=== PATIENT | female | born 1945 | race Caucasian/White ===

== ENCOUNTER 2017-08-18 09:08 | Emergency (ER) | payer MEDICARE, OTHER ==
[2017-08-18] MEDS ORDERED: Morphine 2 MG/ML Syringe IVPUSH ONE (09:42)
--- NOTE | 2017-08-18 10:30 | CR ---
Pelvis and right femur Medical history: Pain Comparison: None Findings: Greater and lesser pelvic rings are intact. There is an acute intertrochanteric fracture of the right hip without significant displacement. No distal metadiaphyseal abnormalities of the femur to the knee are identified. Impression: Right hip intertrochanteric fracture as described
--- NOTE | 2017-08-18 10:52 | CR ---
Pelvis and right hip History Pain after fall Comparison: Prior CT scan March 15, 2016 which was normal for bony anatomy around the pelvis Findings: There is an intertrochanteric fracture of the right femur. Impression: Acute intertrochanteric fracture of the right hip
--- NOTE | 2017-08-18 11:22 | EDM.PDOC ---
ED HPI GENERAL MEDICAL PROBLEM - General Chief Complaint: Lower Extremity Injury/Pain Stated Complaint: AMB Time Seen by Provider: 08/18/17 11:17 Source of Information: Reports: Patient - History of Present Illness INITIAL COMMENTS - FREE TEXT/NARRATIVE: HISTORY AND PHYSICAL: History of present illness: Chief complaint right hip pain Patient arrives via EMS as above She is on her way to [facility] to evaluate for left upper extremity injury , she slipped getting out of her pickup and developed right hip pain unable to ambulate No head injury or loss of consciousness no fever nausea vomiting diarrhea constipation chest pain shortness breath headache dizziness palpitation about a urine symptoms Review of systems: As per history of present illness and below otherwise all systems reviewed and negative. Past medical history: As per history of present illness and as reviewed below otherwise noncontributory. Surgical history: As per history of present illness and as reviewed below otherwise noncontributory. Social history: No reported history of drug or alcohol abuse. Family history: As per history of present illness and as reviewed below otherwise noncontributory. Physical exam: HEENT: Atraumatic, normocephalic, pupils reactive, negative for conjunctival pallor or scleral icterus, mucous membranes moist, throat clear, neck supple, nontender, trachea midline. Lungs: Clear to auscultation, breath sounds equal bilaterally, chest nontender. Heart: S1S2, regular, negative for clicks, rubs, or JVD. Abdomen: Soft, nondistended, nontender. Negative for masses or hepatosplenomegaly. Negative for costovertebral tenderness. Pelvis: Stable nontender. Genitourinary: Deferred. Rectal: Deferred. Extremities: Atraumatic, negative for cords or calf pain. Neurovascular unremarkable. Right hip shortened with external rotation entire limb neurovascularly intact Neuro: Awake, alert, oriented. Cranial nerves II through XII unremarkable. Cerebellum unremarkable. Motor and sensory unremarkable throughout. Exam nonfocal. Diagnostics: [CBC CMP INR UA Chest 1 view Pelvis 1 view Right hip Right femur as patient did not cooperate with the imaging ] Therapeutics: [Morphine 2 mg IV Normal saline 1 25 mL per hour ] Impression: [Intertrochanter fracture right hip Previous history at baseline] Definitive disposition and diagnosis as appropriate pending reevaluation and review of above. Right Hip Pain Score (Numeric/FACES): 8 - Related Data Allergies Allergy/AdvReac Type Severity Reaction Status Date / Time No Known Allergies Allergy Verified 03/15/16 04:16 Home Meds: Home Meds Calcium Carbonate [Calcium] 1,000 mg PO DAILY 08/18/17 [History] Celecoxib [CeleBREX] 200 mg PO DAILY 08/18/17 [History] Cholecalciferol (Vitamin D3) [Vitamin D] 5,000 unit PO DAILY 08/18/17 [History] Docusate Sodium [Stool Softener] 50 mg PO 08/18/17 [History] Sertraline [Zoloft] 50 mg PO DAILY 08/18/17 [History] Thiamine [Vitamin B-1] 50 mg PO DAILY 08/18/17 [History] Past Medical History HEENT History: Reports: Impaired Vision Cardiovascular History: Reports: None Respiratory History: Reports: None Gastrointestinal History: Reports: Bowel Obstruction Other Gastrointestinal History: 2014: required 2 ex laps. Peritonitis. Sepsis sydrome with shock. Prolonged ICU stay. Dr. Jin was the surgeon. 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 Diff or MRSA - Past Surgical History GI Surgical History: Reports: Appendectomy, Cholecystectomy, Colonoscopy, Other (See Below) Female Surgical History: Reports: Hysterectomy Social & Family History - Family History HEENT: Reports: None Cardiac: Reports: None Respiratory: Reports: None Endocrine/Metabolic: Reports: Diabetes, type II Oncologic: Reports: Breast, Liver, Lung - Tobacco Use Smoking Status *Q: Never Smoker Years of Tobacco use: 20 Packs/Tins Daily: 0.5 Second Hand Smoke Exposure: No - Caffeine Use Caffeine Use: Reports: None - Alcohol Use Days Per Week of Alcohol Use: 0 - Recreational Drug Use Recreational Drug Use: No Review of Systems - Review of Systems Review Of Systems: ROS reveals no pertinent complaints other than HPI. ED EXAM, GENERAL - Physical Exam Exam: See Below Course - Vital Signs Last Recorded V/S: Last Vital Signs Temp 99.3 F 08/18/17 10:51 Pulse 108 H 08/18/17 10:51 Resp 20 08/18/17 10:51 BP 129/65 08/18/17 10:51 Pulse Ox 93 L 08/18/17 10:51 - Orders/Labs/Meds Orders: Active Orders 24 hr Category Date Time Status EKG Documentation Completion [RC] STAT Care 08/18/17 11:17 Ordered Chest 1V Frontal [CR] Stat Exams 08/18/17 11:16 Ordered CBC WITH AUTO DIFF [HEME] Stat Lab 08/18/17 11:16 Ordered COMPREHENSIVE METABOLIC PN,CMP [CHEM] Stat Lab 08/18/17 11:16 Ordered UA W/MICROSCOPIC [URIN] Stat Lab 08/18/17 11:16 Uncollected Meds: Medications Discontinued Medications Generic Name Dose Route Start Last Admin Trade Name Freq PRN Reason Stop Dose Admin Morphine Sulfate 2 mg 08/18/17 09:42 08/18/17 10:44 Morphine IVPUSH 08/18/17 09:43 2 mg ONETIME ONE Administration Departure - Departure Time of Disposition: 11:21 Disposition: DC/Tfer to Other 70 Condition: Fair Clinical Impression: Intertrochanteric fracture, hip - Discharge Information Referrals: PCP,Unknown [Primary Care Provider] - Additional Instructions: The following information is given to patients seen in the emergency department who are being discharged to home. This information is to outline your options for follow-up care. We provide all patients seen in our emergency department with a follow-up referral. The need for follow-up, as well as the timing and circumstances, are variable depending upon the specifics of your emergency department visit. If you don't have a primary care physician on staff, we will provide you with a referral. We always advise you to contact your personal physician following an emergency department visit to inform them of the circumstance of the visit and for follow-up with them and/or the need for any referrals to a consulting specialist. The emergency department will also refer you to a specialist when appropriate. This referral assures that you have the opportunity for follow-up care with a specialist. All of these measure are taken in an effort to provide you with optimal care, which includes your follow-up. Under all circumstances we always encourage you to contact your private physician who remains a resource for coordinating your care. When calling for follow-up care, please make the office aware that this follow-up is from your recent emergency room visit. If for any reason you are refused follow-up, please contact the [facility] emergency department at and asked to speak to the emergency department charge nurse. - My Orders Last 24 Hours: My Active Orders 08/18/17 11:16 Chest 1V Frontal [CR] Stat CBC WITH AUTO DIFF [HEME] Stat COMPREHENSIVE METABOLIC PN,CMP [CHEM] Stat UA W/MICROSCOPIC [URIN] Stat 08/18/17 11:17 EKG Documentation Completion [RC] STAT - Assessment/Plan Last 24 Hours: My Active Orders 08/18/17 11:16 Chest 1V Frontal [CR] Stat CBC WITH AUTO DIFF [HEME] Stat COMPREHENSIVE METABOLIC PN,CMP [CHEM] Stat UA W/MICROSCOPIC [URIN] Stat 08/18/17 11:17 EKG Documentation Completion [RC] STAT
[2017-08-18] MEDS ORDERED: Sodium Chloride 0.9% 1,000 ML IV SCH (11:30)
[2017-08-18 12:07] LABS: CHLORIDE,CL 97 mmol/L (98-110); SODIUM,NA 138 mmol/L (136-146)
--- NOTE | 2017-08-18 12:22 | CR ---
Portable chest History: Chest pain Comparison: Prior chest x-ray January 13, 2012 Findings: Cardiomediastinum is unchanged. Vessels are within normal limits. There is an evolving righ t lower lung pneumonia. Impression: Evolving right lower lung pneumonia
[2017-08-18 12:49] VITALS: BP 122/68
== END 2017-08-18 12:55 | disposition other institution (70) ==
LOC: MW.ED 09:08
DX: S72.091A Other fracture of head and neck of right femur, initial encounter for closed fracture (principal); Z79.899 Other long term (current) drug therapy; W01.0XXA Fall on same level from slipping, tripping and stumbling without subsequent striking against object, initial encounter
CPT/HCPCS: 36415; 71045; 73501; 73552; 80053; 85025; 85610; 93005; 96361; 96374; 99285; J2270; J7040; 99284

== ENCOUNTER 2019-02-18 20:28 | Emergency (ER) | payer MEDICARE, OTHER ==
[2019-02-18] MEDS ORDERED: Sodium Chloride 0.9% 1,000 ML IV ONE (20:57)
--- NOTE | 2019-02-18 20:59 | EDM.PDOC ---
ED HPI GENERAL MEDICAL PROBLEM - General Chief Complaint: Trauma Stated Complaint: PT FELL Time Seen by Provider: 02/18/19 20:40 Source of Information: Reports: Patient, Family History Limitations: Reports: No Limitations - History of Present Illness INITIAL COMMENTS - FREE TEXT/NARRATIVE: HISTORY AND PHYSICAL: History of present illness: Patient is a 73-year-old female who presents to the emergency room today with complaints of syncope and confusion. She recently had a surgery done at [facility] in [place] to have pins removed from the left humerous (02/15/2019). She was given a prescription for oxycodone and has a home prescription for Ativan which she has been using both. Granddaughter states that she does live alone and has been possibly taking her medications incorrectly. Patient stated that earlier today she took a Ativan for and "ankle spasm". Today around 8 PM the granddaughter had gone over to the patient's house to check on her, and stated that she looked "off and seemed confused". The patient reportedly had a syncopal event/ fall and does not recall events prior. She states she remembers that she was getting out of bed and woke up on the floor. After the syncope/fall she denies any pain or concerns of any bodily harm. She states she was able to go and sit in her chair and that's when the granddaughter had came over. She does have extensive healing bruising throughout the left chest wall and left upper extremity, which was from her recent surgery. Patient denies any fever, chills, headache, change in vision, or neck pain/ stiffness. Denies any chest pain, back pain, shortness of breath. Denies any abdominal pain, nausea, vomiting, diarrhea, constipation or dysuria. Patient has been eating and drinking appropriately. Review of systems: As per history of present illness and below otherwise all systems reviewed and negative. Past medical history: As per history of present illness and as reviewed below otherwise noncontributory. Surgical history: As per history of present illness and as reviewed below otherwise noncontributory. Social history: See social history for further information Family history: As per history of present illness and as reviewed below otherwise noncontributory. Physical exam: General: Well-developed and well-nourished 73-year-old female. Alert and oriented. Nontoxic appearing and in no acute distress. HEENT: Nontender with palpation, normocephalic, pupils equal and reactive bilaterally, negative for conjunctival pallor or scleral icterus, mucous membranes moist, TMs normal bilaterally, throat clear, neck supple, nontender, trachea midline. No drooling or trismus noted. No meningeal signs. No hot potato voice noted. Lungs: Rhonchi noted to the upper lung alvares, breath sounds equal bilaterally, chest nontender. Loose productive cough noted. Heart: S1S2, regular rate and rhythm without overt murmur Abdomen: Soft, nondistended, nontender. Negative for masses or hepatosplenomegaly. Negative for costovertebral tenderness. Pelvis: Stable nontender. Genitourinary: Deferred. Rectal: Deferred. C-spine/Back: No pinpoint vertebral tenderness upon palpation. No crepitus, step -offs or obvious deformities. Patient is ambulatory into the emergency room without difficulty or deficit. Able to lift her toes up towards her nose and pushed down with equal force bilaterally. Denies any urinary or fecal incontinence. Denies any numbness, tingling or saddle paresthesia. Skin: Various sporadic bruising throughout body. Extensive bruising noted to the left upper extremity and left lateral torso, healing stages. Otherwise skin is intact, warm, dry. No lesions or rashes noted. Extremities: Wears a sling to the left upper extremity as she did recently have surgery, assessment is limited due to this. See skin for details. Otherwise moves all extremities per self without difficulty or deficits. No pain with palpation of the left elbow, forearm, wrist or hand. Mild tenderness with palpation of the left proximal humerus and shoulder although she states this is "normal" and is not a new pain related to today's visit. Strong distal pulses bilaterally. Neurovascular unremarkable. Neuro: Awake, alert, oriented. Cranial nerves II through XII unremarkable. Cerebellum unremarkable. Motor and sensory unremarkable throughout. Exam nonfocal. Notes: Vital signs remain stable. Patient currently has no complaints of pain. Negative head CT. Chest x-ray shows no active disease. Lab work is unremarkable. Discussed with patient's about admission versus discharge. Currently our facility is on diversion as we do not have any open beds available to admit at our facility. I did strongly advise that she be admitted for continued observation due to the syncopal event in recent surgery. This would require her to be transferred to the closest facility which is [facility]. Both patient and granddaughter at bedside are agreeable and would like her to be monitored overnight. Dr. Lester, ER physician at [facility], was consult did and he is agreeable to accepting this patient. Patient will go via ground EMS.i Diagnostics: CBC, CMP, INR, Troponin, EKG, CXR, Head CT Therapeutics: Normal Saline Impression: Syncope Recent shoulder surgery Plan: Transfer to [facility] via ground EMS Definitive disposition and diagnosis as appropriate pending reevaluation and review of above. - Related Data Allergies Allergy/AdvReac Type Severity Reaction Status Date / Time adhesive tape Allergy Swelling Verified 02/18/19 21:31 Home Meds: Home Meds Calcium Carbonate [Calcium] 1,000 mg PO DAILY 08/18/17 [History] Cholecalciferol (Vitamin D3) [Vitamin D] 5,000 unit PO DAILY 08/18/17 [History] Docusate Sodium [Stool Softener] 50 mg PO ASDIRECTED PRN 08/18/17 [History] Thiamine [Vitamin B-1] 50 mg PO DAILY 08/18/17 [History] Acetaminophen/oxyCODONE [Percocet 325-5 MG] 1 tab PO BID 02/18/19 [History] LORazepam 1 mg PO ASDIRECTED 02/18/19 [History] cephALEXin [Keflex] 500 mg PO QID 02/18/19 [History] Past Medical History HEENT History: Reports: Impaired Vision Cardiovascular History: Reports: None Respiratory History: Reports: None Gastrointestinal History: Reports: Bowel Obstruction Other Gastrointestinal History: 2013: required 2 ex laps. Peritonitis. Sepsis sydrome with shock. Prolonged ICU stay. Dr. Jin was the surgeon. 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 Diff or MRSA - Past Surgical History GI Surgical History: Reports: Appendectomy, Cholecystectomy, Colonoscopy, Other (See Below) Female Surgical History: Reports: Hysterectomy Social & Family History - Family History HEENT: Reports: None Cardiac: Reports: None Respiratory: Reports: None Endocrine/Metabolic: Reports: Diabetes, type II Oncologic: Reports: Breast, Liver, Lung - Caffeine Use Caffeine Use: Reports: None Review of Systems - Review of Systems Review Of Systems: ROS reveals no pertinent complaints other than HPI. ED EXAM, GENERAL - Physical Exam Exam: See Below (See dictation) Course - Vital Signs Last Recorded V/S: Last Vital Signs Temp 98.2 F 02/18/19 22:12 Pulse 73 02/18/19 22:12 Resp 18 02/18/19 22:12 BP 135/85 02/18/19 22:12 Pulse Ox 96 02/18/19 22:12 - Orders/Labs/Meds Orders: Active Orders 24 hr Category Date Time Status EKG Documentation Completion [RC] STAT Care 02/18/19 20:31 Active Sodium Chloride 0.9% [Normal Saline] 1,000 ml Med 02/18/19 20:57 Active IV STAT Medication Orders Sodium Chloride (Normal Saline) 1,000 mls @ 100 mls/hr IV STAT ONE Stop: 02/19/19 06:56 Last Admin: 02/18/19 21:18 Dose: 100 mls/hr Labs: Laboratory Tests 02/18/19 02/18/19 02/18/19 Range/Units 21:18 21:18 21:18 WBC 8.71 (4.0-11.0) K/uL RBC 3.74 L (4.30-5.90) M/uL Hgb 11.3 L (12.0-16.0) g/dL Hct 35.0 L (36.0-46.0) % MCV 93.6 (80.0-98.0) fL MCH 30.2 (27.0-32.0) pg MCHC 32.3 (31.0-37.0) g/dL RDW Std Deviation 48.5 (28.0-62.0) fl RDW Coeff of Danisha 14 (11.0-15.0) % Plt Count 281 (150-400) K/uL MPV 10.10 (7.40-12.00) fL Neut % (Auto) 77.4 (48.0-80.0) % Lymph % (Auto) 12.7 L (16.0-40.0) % [place] % (Auto) 9.1 (0.0-15.0) % Eos % (Auto) 0.6 (0.0-7.0) % Baso % (Auto) 0.2 (0.0-1.5) % Neut # (Auto) 6.7 H (1.4-5.7) K/uL Lymph # (Auto) 1.1 (0.6-2.4) K/uL [place] # (Auto) 0.8 (0.0-0.8) K/uL Eos # (Auto) 0.1 (0.0-0.7) K/uL Baso # (Auto) 0.0 (0.0-0.1) K/uL Nucleated RBC % 0.0 /100WBC Nucleated RBCs # 0 K/uL INR 1.04 Sodium 141 (136-145) mmol/L Potassium 3.5 (3.5-5.1) mmol/L Chloride 103 (98-107) mmol/L Carbon Dioxide 32.5 H (21.0-32.0) mmol/L BUN 25 H (7.0-18.0) mg/dL Creatinine 0.7 (0.6-1.0) mg/dL Est Cr Clr Drug Dosing 64.41 mL/min Estimated GFR (MDRD) > 60.0 ml/min Glucose 83 (74-106) mg/dL Calcium 9.2 (8.5-10.1) mg/dL Total Bilirubin 0.4 (0.2-1.0) mg/dL AST 27 (15-37) IU/L ALT 21 (14-63) IU/L Alkaline Phosphatase 76 (46-116) U/L Troponin I < 0.050 (0.000-0.056) ng/mL Total Protein 6.7 (6.4-8.2) g/dL Albumin 3.3 L (3.4-5.0) g/dL Globulin 3.4 (2.6-4.0) g/dL Albumin/Globulin Ratio 1.0 (0.9-1.6) Urine Color Urine Appearance Urine pH (5.0-8.0) Ur Specific Ranger (1.001-1.035) Urine Protein (NEGATIVE) mg/dL Urine Glucose (UA) (NEGATIVE) mg/dL Urine Ketones (NEGATIVE) mg/dL Urine Occult Blood (NEGATIVE) Urine Nitrite (NEGATIVE) Urine Bilirubin (NEGATIVE) Urine Urobilinogen (<2.0) EU/dL Ur Leukocyte Esterase (NEGATIVE) 02/18/19 Range/Units 22:06 WBC (4.0-11.0) K/uL RBC (4.30-5.90) M/uL Hgb (12.0-16.0) g/dL Hct (36.0-46.0) % MCV (80.0-98.0) fL MCH (27.0-32.0) pg MCHC (31.0-37.0) g/dL RDW Std Deviation (28.0-62.0) fl RDW Coeff of Danisha (11.0-15.0) % Plt Count (150-400) K/uL MPV (7.40-12.00) fL Neut % (Auto) (48.0-80.0) % Lymph % (Auto) (16.0-40.0) % [place] % (Auto) (0.0-15.0) % Eos % (Auto) (0.0-7.0) % Baso % (Auto) (0.0-1.5) % Neut # (Auto) (1.4-5.7) K/uL Lymph # (Auto) (0.6-2.4) K/uL [place] # (Auto) (0.0-0.8) K/uL Eos # (Auto) (0.0-0.7) K/uL Baso # (Auto) (0.0-0.1) K/uL Nucleated RBC % /100WBC Nucleated RBCs # K/uL INR Sodium (136-145) mmol/L Potassium (3.5-5.1) mmol/L Chloride (98-107) mmol/L Carbon Dioxide (21.0-32.0) mmol/L BUN (7.0-18.0) mg/dL Creatinine (0.6-1.0) mg/dL Est Cr Clr Drug Dosing mL/min Estimated GFR (MDRD) ml/min Glucose (74-106) mg/dL Calcium (8.5-10.1) mg/dL Total Bilirubin (0.2-1.0) mg/dL AST (15-37) IU/L ALT (14-63) IU/L Alkaline Phosphatase (46-116) U/L Troponin I (0.000-0.056) ng/mL Total Protein (6.4-8.2) g/dL Albumin (3.4-5.0) g/dL Globulin (2.6-4.0) g/dL Albumin/Globulin Ratio (0.9-1.6) Urine Color YELLOW Urine Appearance CLEAR Urine pH 6.0 (5.0-8.0) Ur Specific Ranger >= 1.030 (1.001-1.035) Urine Protein NEGATIVE (NEGATIVE) mg/dL Urine Glucose (UA) NEGATIVE (NEGATIVE) mg/dL Urine Ketones NEGATIVE (NEGATIVE) mg/dL Urine Occult Blood NEGATIVE (NEGATIVE) Urine Nitrite NEGATIVE (NEGATIVE) Urine Bilirubin NEGATIVE (NEGATIVE) Urine Urobilinogen 0.2 (<2.0) EU/dL Ur Leukocyte Esterase NEGATIVE (NEGATIVE) Meds: Medications Generic Name Dose Route Start Last Admin Trade Name Yvonq PRN Reason Stop Dose Admin Sodium Chloride 1,000 mls @ 100 mls/hr 02/18/19 20:57 02/18/19 21:18 Normal Saline IV 02/19/19 06:56 100 mls/hr STAT ONE Administration Departure - Departure Time of Disposition: 22:21 Disposition: DC/Tfer to [facility] 02 Clinical Impression: History of recent surgery Syncope Qualifiers: Syncope type: unspecified Qualified Code(s): R55 - Syncope and collapse - Discharge Information Referrals: PCP,None [Primary Care Provider] - Forms: ED Department Discharge - My Orders Last 24 Hours: My Active Orders 02/18/19 20:31 EKG Documentation Completion [RC] STAT 02/18/19 20:57 Sodium Chloride 0.9% [Normal Saline] 1,000 ml IV STAT - Assessment/Plan Last 24 Hours: My Active Orders 02/18/19 20:31 EKG Documentation Completion [RC] STAT 02/18/19 20:57 Sodium Chloride 0.9% [Normal Saline] 1,000 ml IV STAT
--- NOTE | 2019-02-18 21:07 | CT ---
INDICATION: Syncope with fall TECHNIQUE: CT head without contrast. COMPARISON: June 07, 2011 FINDINGS: CSF spaces: Within normal limits for age. Brain parenchyma: The vázquez-white differentiation is normal. No sign of mass, hemorrhage, or midline shift. Skull base and calvarium: The visualized paranasal sinuses and mastoid air cells demonstrate no acute or significant findings. The visualized orbits are grossly unremarkable. No skull fractures. IMPRESSION: Unremarkable noncontrast head CT. Please note that all CT scans at this facility use dose modulation, iterative reconstruction, and/or weight-based dosing when appropriate to reduce radiation dose to as low as reasonably achievable. Dictated by Mimi Katz MD @ Feb 18 2019 8:53PM Signed by Dr. Mimi Katz @ Feb 18 2019 9:04PM
--- NOTE | 2019-02-18 21:21 | CR ---
INDICATION: Pain and shortness of breath. COMPARISON: 02/04/2019 FINDINGS: PA and lateral views of the chest were obtained. The lungs remain clear. No focal or diffuse infiltrates are present. The heart remains normal in size. The mediastinum is normal in appearance. Again seen is minimal scoliosis of the thoracic spine convex towards the right. There has been revision of the ORIF of the fracture of the proximal left humeral shaft or in the interval. The previously-seen intramedullary yesica and proximal interlocking screw has been removed and a metallic side plate with multiple interlocking screws has been applied. The fracture fragments appear to be in near anatomic alignment on the images available. IMPRESSION: No active disease seen in the chest. Dictated by Gordy Stewart MD @ Feb 18 2019 9:18PM Signed by Dr. Gordy Stewart @ Feb 18 2019 9:20PM
[2019-02-18 21:58] LABS: BLOOD UREA NITROGEN,BUN 25 mg/dL (7.0-18.0); CARBON DIOXIDE,CO2 32.5 mmol/L (21.0-32.0); CHLORIDE,CL 103 mmol/L (98-107); GLUCOSE RANDOM 83 mg/dL (74-106); POTASSIUM,K 3.5 mmol/L (3.5-5.1); SODIUM,NA 141 mmol/L (136-145)
[2019-02-18] MEDS ORDERED: Nicotine 14 MG/24 Hr Patch TRDERM ONE (23:31)
[2019-02-19 11:50] VITALS: BP 150/77; PULSE 78
== END 2019-02-19 10:50 | disposition home or self-care (01) ==
LOC: MW.ED 20:28
DX: R55 Syncope and collapse (principal); F32.9 Major depressive disorder, single episode, unspecified; Z90.49 Acquired absence of other specified parts of digestive tract; Z90.710 Acquired absence of both cervix and uterus; Z86.2 Personal history of diseases of the blood and blood-forming organs and certain disorders involving the immune mechanism; Z79.899 Other long term (current) drug therapy; Z91.048 Other nonmedicinal substance allergy status
CPT/HCPCS: 36415; 70450; 71046; 80053; 81003; 84484; 85025; 85610; 93005; 96360; 96361; 99285; A9270; J7040; 99284

== ENCOUNTER 2019-06-15 13:39 | Inpatient (IN) | payer MEDICARE, OTHER ==
[2019-06-15] MEDS ORDERED: methylPREDNISolone Sodium Succinate 125 MG/2 ML SDV IVPUSH ONE (13:59)
[2019-06-15] MEDS ORDERED: Albuterol/Ipratropium 3.0-0.5 MG/3 ML Neb Soln NEB ONE (13:59)
[2019-06-15] MEDS ORDERED: Sodium Chloride 0.9% 10 ML Syringe FLUSH PRN (13:59)
[2019-06-15] MEDS ORDERED: Sodium Chloride 0.9% 2.5 ML Syringe FLUSH PRN (13:59)
--- NOTE | 2019-06-15 14:18 | EDM.PDOC ---
ED HPI GENERAL MEDICAL PROBLEM - General Chief Complaint: General Stated Complaint: WEAKNESS/FATIGUE Time Seen by Provider: 06/15/19 13:45 Source of Information: Reports: Patient, Family History Limitations: Reports: No Limitations - History of Present Illness INITIAL COMMENTS - FREE TEXT/NARRATIVE: HISTORY AND PHYSICAL: History of present illness: Patient is a 73-year-old female who presents to the ED today for concern of weakness over the past 2-3 weeks. Patient states that she just feels like she is having a harder time getting around the house. Patient states she did have a partial lung resection due to lung cancer approximately one month ago. Patient states that she does have a baseline cough but feels that this is unchanged. 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 Patient denies any abdominal pain. Patient denies any other symptoms or concerns. Patient states she does smoke about one cigarette a day. Patient denies fever, chills, chest pain, shortness of breath Denies headache, neck stiff ness, change in vision, syncope, or near syncope. Denies nausea, vomiting, abdominal pain, diarrhea, constipation, or dysuria. Has not noted any blood in urine or stool. Patient has been eating and drinking appropriately. Review of systems: As per history of present illness and below otherwise all systems reviewed and negative. Past medical history: As per history of present illness and as reviewed below otherwise noncontributory. Surgical history: As per history of present illness and as reviewed below otherwise noncontributory. Social history: See social history for further information Family history: As per history of present illness and as reviewed below otherwise noncontributory. Physical exam: General: Patient is alert, oriented, and in no acute distress. Patient laying comfortably on exam table. HEENT: Atraumatic, normocephalic, pupils equal and reactive bilaterally, negative for conjunctival pallor or scleral icterus, mucous membranes moist, TMs normal bilaterally, throat clear, neck supple, nontender, trachea midline. No drooling or trismus noted. No meningeal signs. No hot potato voice noted. Lungs: Course crackles to auscultation throughout all lung alvares, breath sounds equal bilaterally, chest nontender. Wet cough on exam. Heart: S1S2, regular rate and rhythm without overt murmur Abdomen: Soft, nondistended, nontender. Negative for masses or hepatosplenomegaly. Negative for costovertebral tenderness. Pelvis: Stable nontender. Genitourinary: Deferred. Rectal: Deferred. Skin: Intact, warm, dry. No lesions or rashes noted. Extremities: Atraumatic, negative for cords or calf pain. Neurovascular unremarkable. Neuro: Awake, alert, oriented. Cranial nerves II through XII unremarkable. Cerebellum unremarkable. Motor and sensory unremarkable throughout. Exam nonfocal. Notes: Dr. Baker was consulted on patient and will admit to Voices understanding and is agreeable to plan of care. Denies any further questions or concerns at this time. Diagnostics: CBC, CMP, UA, EKG, chest x-ray, troponin, PT/INR, BNP, Influenza Therapeutics: Solumedrol, Duoneb, Zosyn Impression: Pneumonia Plan: Admit to observation to Dr. Baker Definitive disposition and diagnosis as appropriate pending reevaluation and review of above. - Related Data Allergies Allergy/AdvReac Type Severity Reaction Status Date / Time adhesive tape Allergy Swelling Verified 06/15/19 13:51 Home Meds: Home Meds Calcium Carbonate [Calcium] 1,000 mg PO DAILY 08/18/17 [History] Cholecalciferol (Vitamin D3) [Vitamin D] 5,000 unit PO DAILY 08/18/17 [History] Sertraline HCl 50 mg PO DAILY 02/18/19 [History] Past Medical History HEENT History: Reports: Impaired Vision Other HEENT History: dentures top and bottom Cardiovascular History: Reports: None Respiratory History: Reports: None Gastrointestinal History: Reports: Bowel Obstruction Other Gastrointestinal History: 2013: required 2 ex laps. Peritonitis. Sepsis sydrome with shock. Prolonged ICU stay. Dr. Jin was the surgeon. 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 Diff or MRSA - Past Surgical History Respiratory Surgical History: Reports: Lung Biopsies, Lung Resection Other Respiratory Surgeries/Procedures: left lobectomy; mass removed from right ; hx of lung CA GI Surgical History: Reports: Appendectomy, Cholecystectomy, Colonoscopy, Other (See Below) Female Surgical History: Reports: Hysterectomy Social & Family History - Family History Family Medical History: Noncontributory HEENT: Reports: None Cardiac: Reports: None Respiratory: Reports: None Endocrine/Metabolic: Reports: Diabetes, type II Oncologic: Reports: Breast, Liver, Lung - Tobacco Use Smoking Status *Q: Current Every Day Smoker Years of Tobacco use: 55 Packs/Tins Daily: 0.5 - Caffeine Use Caffeine Use: Reports: None - Recreational Drug Use Recreational Drug Use: No ED ROS GENERAL - Review of Systems Review Of Systems: Comprehensive ROS is negative, except as noted in HPI. ED EXAM, GENERAL - Physical Exam Exam: See Below (see dictation) Course - Vital Signs Last Recorded V/S: Last Vital Signs Temp 97.8 F 06/15/19 16:35 Pulse 102 H 06/15/19 16:35 Resp 19 06/15/19 16:35 BP 127/68 06/15/19 16:35 Pulse Ox 92 L 06/15/19 16:38 - Orders/Labs/Meds Orders: Active Orders 24 hr Category Date Time Status Patient Status [ADT] Stat ADT 06/15/19 16:56 Active EKG Documentation Completion [RC] STAT Care 06/15/19 13:59 Active RT Aerosol Therapy [RC] ASDIRECTED Care 06/15/19 14:00 Active CULTURE BLOOD [BC] Stat Lab 06/15/19 16:04 Ordered CULTURE BLOOD [BC] Stat Lab 06/15/19 16:04 Ordered LACTATE WITH REFLEX [BG] Stat Lab 06/15/19 16:04 Ordered Piperacillin/Tazobactam [Piperacil-Tazobact] 4.5 gm Med 06/15/19 16:45 Active Sodium Chloride 0.9% [Normal Saline] 100 ml IV Q6H Sodium Chloride 0.9% [Normal Saline] 1,000 ml Med 06/15/19 15:45 Active IV STAT Sodium Chloride 0.9% [Saline Flush] Med 06/15/19 13:59 Active 10 ml FLUSH ASDIRECTED PRN Sodium Chloride 0.9% [Saline Flush] Med 06/15/19 13:59 Active 2.5 ml FLUSH ASDIRECTED PRN Blood Culture x2 Reflex Set [OM.PC] Stat Oth 06/15/19 16:04 Ordered Saline Lock Insert [OM.PC] Stat Oth 06/15/19 13:59 Ordered Medication Orders Sodium Chloride (Normal Saline) 1,000 mls @ 125 mls/hr IV STAT ELAINE Last Admin: 06/15/19 16:09 Dose: 125 mls/hr Piperacillin Sod/Tazobactam (Sod 4.5 gm/ Sodium Chloride) 100 mls @ 100 mls/hr IV Q6H ELAINE Sodium Chloride (Saline Flush) 10 ml FLUSH ASDIRECTED PRN PRN Reason: Keep Vein Open Last Admin: 06/15/19 14:14 Dose: 10 ml Sodium Chloride (Saline Flush) 2.5 ml FLUSH ASDIRECTED PRN PRN Reason: Keep Vein Open Last Admin: 06/15/19 14:14 Dose: 2.5 ml Labs: Laboratory Tests 06/15/19 06/15/19 06/15/19 Range/Units 15:30 15:30 15:30 WBC 17.94 H (4.0-11.0) K/uL RBC 4.20 L (4.30-5.90) M/uL Hgb 12.3 (12.0-16.0) g/dL Hct 36.2 (36.0-46.0) % MCV 86.2 (80.0-98.0) fL MCH 29.3 (27.0-32.0) pg MCHC 34.0 (31.0-37.0) g/dL RDW Std Deviation 49.5 (28.0-62.0) fl RDW Coeff of Danisha 16 H (11.0-15.0) % Plt Count 546 H (150-400) K/uL MPV 10.00 (7.40-12.00) fL Neut % (Auto) 80.6 H (48.0-80.0) % Lymph % (Auto) 12.7 L (16.0-40.0) % [place] % (Auto) 6.4 (0.0-15.0) % Eos % (Auto) 0.1 (0.0-7.0) % Baso % (Auto) 0.2 (0.0-1.5) % Neut # (Auto) 14.5 H (1.4-5.7) K/uL Lymph # (Auto) 2.3 (0.6-2.4) K/uL [place] # (Auto) 1.1 H (0.0-0.8) K/uL Eos # (Auto) 0.0 (0.0-0.7) K/uL Baso # (Auto) 0.0 (0.0-0.1) K/uL Nucleated RBC % 0.0 /100WBC Nucleated RBCs # 0 K/uL INR 1.46 Sodium 135 L (136-145) mmol/L Potassium 5.1 (3.5-5.1) mmol/L Chloride 97 L (98-107) mmol/L Carbon Dioxide 30.7 (21.0-32.0) mmol/L BUN 29 H (7.0-18.0) mg/dL Creatinine 0.9 (0.6-1.0) mg/dL Est Cr Clr Drug Dosing 41.46 mL/min Estimated GFR (MDRD) > 60.0 ml/min Glucose 102 (74-106) mg/dL Calcium 9.1 (8.5-10.1) mg/dL Total Bilirubin 0.7 (0.2-1.0) mg/dL AST 27 (15-37) IU/L ALT 21 (14-63) IU/L Alkaline Phosphatase 112 (46-116) U/L Troponin I < 0.050 (0.000-0.056) ng/mL B-Natriuretic Peptide (<100) PG/ML Total Protein 7.0 (6.4-8.2) g/dL Albumin 2.2 L (3.4-5.0) g/dL Globulin 4.8 H (2.6-4.0) g/dL Albumin/Globulin Ratio 0.5 L (0.9-1.6) Urine Color Urine Appearance Urine pH (5.0-8.0) Ur Specific [place] (1.001-1.035) Urine Protein (NEGATIVE) mg/dL Urine Glucose (UA) (NEGATIVE) mg/dL Urine Ketones (NEGATIVE) mg/dL Urine Occult Blood (NEGATIVE) Urine Nitrite (NEGATIVE) Urine Bilirubin (NEGATIVE) Urine Urobilinogen (<2.0) EU/dL Ur Leukocyte Esterase (NEGATIVE) 11/27/19 11/27/19 Range/Units 15:30 15:50 WBC (4.0-11.0) K/uL RBC (4.30-5.90) M/uL Hgb (12.0-16.0) g/dL Hct (36.0-46.0) % MCV (80.0-98.0) fL MCH (27.0-32.0) pg MCHC (31.0-37.0) g/dL RDW Std Deviation (28.0-62.0) fl RDW Coeff of Danisha (11.0-15.0) % Plt Count (150-400) K/uL MPV (7.40-12.00) fL Neut % (Auto) (48.0-80.0) % Lymph % (Auto) (16.0-40.0) % [place] % (Auto) (0.0-15.0) % Eos % (Auto) (0.0-7.0) % Baso % (Auto) (0.0-1.5) % Neut # (Auto) (1.4-5.7) K/uL Lymph # (Auto) (0.6-2.4) K/uL [place] # (Auto) (0.0-0.8) K/uL Eos # (Auto) (0.0-0.7) K/uL Baso # (Auto) (0.0-0.1) K/uL Nucleated RBC % /100WBC Nucleated RBCs # K/uL INR Sodium (136-145) mmol/L Potassium (3.5-5.1) mmol/L Chloride (98-107) mmol/L Carbon Dioxide (21.0-32.0) mmol/L BUN (7.0-18.0) mg/dL Creatinine (0.6-1.0) mg/dL Est Cr Clr Drug Dosing mL/min Estimated GFR (MDRD) ml/min Glucose (74-106) mg/dL Calcium (8.5-10.1) mg/dL Total Bilirubin (0.2-1.0) mg/dL AST (15-37) IU/L ALT (14-63) IU/L Alkaline Phosphatase (46-116) U/L Troponin I (0.000-0.056) ng/mL B-Natriuretic Peptide 198 H (<100) PG/ML Total Protein (6.4-8.2) g/dL Albumin (3.4-5.0) g/dL Globulin (2.6-4.0) g/dL Albumin/Globulin Ratio (0.9-1.6) Urine Color DARK YELLOW Urine Appearance CLEAR Urine pH 6.0 (5.0-8.0) Ur Specific [place] 1.015 (1.001-1.035) Urine Protein NEGATIVE (NEGATIVE) mg/dL Urine Glucose (UA) NEGATIVE (NEGATIVE) mg/dL Urine Ketones NEGATIVE (NEGATIVE) mg/dL Urine Occult Blood NEGATIVE (NEGATIVE) Urine Nitrite NEGATIVE (NEGATIVE) Urine Bilirubin NEGATIVE (NEGATIVE) Urine Urobilinogen 0.2 (<2.0) EU/dL Ur Leukocyte Esterase NEGATIVE (NEGATIVE) Meds: Medications Generic Name Dose Route Start Last Admin Trade Name Freq PRN Reason Stop Dose Admin Sodium Chloride 1,000 mls @ 125 mls/hr 06/15/19 15:45 06/15/19 16:09 Normal Saline IV 125 mls/hr STAT ELAINE Administration Piperacillin Sod/Tazobactam 100 mls @ 100 mls/hr 06/15/19 16:45 Sod 4.5 gm/ Sodium Chloride IV Q6H ELAINE Sodium Chloride 10 ml 06/15/19 13:59 06/15/19 14:14 Saline Flush FLUSH 10 ml ASDIRECTED PRN Administration Keep Vein Open Sodium Chloride 2.5 ml 06/15/19 13:59 06/15/19 14:14 Saline Flush FLUSH 2.5 ml ASDIRECTED PRN Administration Keep Vein Open Discontinued Medications Generic Name Dose Route Start Last Admin Trade Name Freq PRN Reason Stop Dose Admin Albuterol/Ipratropium 3 ml 06/15/19 13:59 06/15/19 14:14 Duoneb 3.0-0.5 Mg/3 Ml NEB 06/15/19 14:00 3 ml ONETIME ONE Administration Methylprednisolone Sodium Succinate 125 mg 06/15/19 13:59 06/15/19 14:14 Solu-Medrol IVPUSH 06/15/19 14:00 125 mg ONETIME ONE Administration Departure - Departure Time of Disposition: 16:52 Disposition: Admitted As Inpatient 66 Clinical Impression: Pneumonia Qualifiers: Pneumonia type: due to unspecified organism Laterality: bilateral Lung location : unspecified part of lung Qualified Code(s): J18.9 - Pneumonia, unspecified organism - Discharge Information Referrals: Chalino Servin MD [Primary Care Provider] - Forms: ED Department Discharge - My Orders Last 24 Hours: My Active Orders 06/15/19 13:59 EKG Documentation Completion [RC] STAT Sodium Chloride 0.9% [Saline Flush] 10 ml FLUSH ASDIRECTED PRN Sodium Chloride 0.9% [Saline Flush] 2.5 ml FLUSH ASDIRECTED PRN Saline Lock Insert [OM.PC] Stat 06/15/19 14:00 RT Aerosol Therapy [RC] ASDIRECTED 06/15/19 15:45 Sodium Chloride 0.9% [Normal Saline] 1,000 ml IV STAT 06/15/19 16:04 CULTURE BLOOD [BC] Stat CULTURE BLOOD [BC] Stat LACTATE WITH REFLEX [BG] Stat Blood Culture x2 Reflex Set [OM.PC] Stat - Assessment/Plan Last 24 Hours: My Active Orders 06/15/19 13:59 EKG Documentation Completion [RC] STAT Sodium Chloride 0.9% [Saline Flush] 10 ml FLUSH ASDIRECTED PRN Sodium Chloride 0.9% [Saline Flush] 2.5 ml FLUSH ASDIRECTED PRN Saline Lock Insert [OM.PC] Stat 06/15/19 14:00 RT Aerosol Therapy [RC] ASDIRECTED 06/15/19 15:45 Sodium Chloride 0.9% [Normal Saline] 1,000 ml IV STAT 06/15/19 16:04 CULTURE BLOOD [BC] Stat CULTURE BLOOD [BC] Stat LACTATE WITH REFLEX [BG] Stat Blood Culture x2 Reflex Set [OM.PC] Stat
[2019-06-15] MEDS ORDERED: Sodium Chloride 0.9% 1,000 ML IV SCH (15:45)
[2019-06-15 16:11] LABS: BLOOD UREA NITROGEN,BUN 29 mg/dL (7.0-18.0); CARBON DIOXIDE,CO2 30.7 mmol/L (21.0-32.0); CHLORIDE,CL 97 mmol/L (98-107); GLUCOSE RANDOM 102 mg/dL (74-106); POTASSIUM,K 5.1 mmol/L (3.5-5.1); SODIUM,NA 135 mmol/L (136-145)
--- NOTE | 2019-06-15 16:18 | CR ---
INDICATION: Cough, weakness TECHNIQUE: Chest 2 views. COMPARISON: Chest radiograph February 18, 2019, chest CT March 01, 2019 FINDINGS: Stable cardiomediastinal silhouette. Emphysema. Lungs are hyperinflated. New scattered patchy opacities throughout the lungs. No pneumothorax or significant effusion. Plate and screw hardware in the proximal left humerus. IMPRESSION: New bilateral patchy opacities concerning for pneumonia. Emphysema. Dictated by Mimi Katz MD @ Jun 15 2019 4:14PM Signed by Dr. Mimi Katz @ Jun 15 2019 4:17PM
[2019-06-15] MEDS ORDERED: Ondansetron 4 MG/2 ML SDV IVPUSH PRN (17:08)
[2019-06-15] MEDS ORDERED: Acetaminophen 325 MG Tab PO PRN (17:08)
--- NOTE | 2019-06-15 17:08 | PCM.HP.2 ---
H&P History of Present Illness - General Date of Service: 06/15/19 Admit Problem/Dx: Admission Diagnosis/Problem Admission Diagnosis/Problem Healthcare-associated pneumonia Source of Information: Patient History Limitations: Reports: No Limitations - History of Present Illness Initial Comments - Free Text/Narative: This 73 year old female with pmh of adenocarcinoma of the lung with recent L lobe lung resection and pulmonary tumor resection to R 6 weeks ago in [place] and depression presented to the ED today with her grand-daughter. She feels she has not been feeling well for the past 2 weeks, granddaughter reports seeing a significant decline in ability to ambulate without shortness of breath and congested cough. Grand-daughter reports she doesn't look like her normal self. Patient reports cough, with some productive sputum, yellow to green in color. Denies fevers or chills, no chest pain. Reports shortness of breath especially with ambulation and exertion. She denies abdominal pain and no urinary symptoms. She denies diarrhea or constipation and no black or bloody BMs. She reports essentially quitting smoking, but smokes 1 cigarette a day. No alcohol and no recreational drug use. In the ED significant leukocytosis noted 17,000. Platelets 550. BUN elevated with decreased CL 97. No elevated LFTs. BC obtained in the ED and UA negative. Noted to be hypoxic and placed on 4 L NC. CXR revealed bilateral infiltrates suspicious for pneumonia. She will be admitted for acute hypoxic respiratory failure and HCAP.. Grand daughter explains they recently visited with oncology, who recommended chemotherapy, though cancer was totally removed. Patient and family decided to hold off due to significant weight loss post-operatively and having no reserve currently to under go chemotherapy. She was started on Ensure with PCP, Dr Servin recently. She reports appetite is good and has been drinking ensures at home to help with meal replacement. PCP, Dr Servin. Dr Servin notified of patient admission. - Related Data Allergies/Adverse Reactions: Allergies Allergy/AdvReac Type Severity Reaction Status Date / Time adhesive tape Allergy Swelling Verified 06/15/19 17:44 Home Medications: Home Meds Calcium Carbonate [Calcium] 1,000 mg PO DAILY 08/18/17 [History] Cholecalciferol (Vitamin D3) [Vitamin D] 5,000 unit PO DAILY 08/18/17 [History] Sertraline HCl 50 mg PO DAILY 02/18/19 [History] Docusate Sodium [Colace] 100 mg PO DAILY 06/15/19 [History] Past Medical History HEENT History: Reports: Impaired Vision Other HEENT History: dentures top and bottom Cardiovascular History: Reports: None. Denies: CAD, Hypertension, [place] Respiratory History: Reports: COPD Gastrointestinal History: Reports: Bowel Obstruction Other Gastrointestinal History: 2014: required 2 ex laps. Peritonitis. Sepsis sydrome with shock. Prolonged ICU stay. Dr. Jin was the surgeon. Genitourinary History: Reports: None DESIGN SUPERVISOR History: Reports: Polycystic Ovaries Musculoskeletal History: Reports: Fracture, Other (See Below) Other Musculoskeletal History: fractured arm age 2 Neurological History: Reports: None Psychiatric History: Reports: Depression Endocrine/Metabolic History: Reports: None. Denies: Diabetes, Type II Hematologic History: Reports: Anemia, Blood Transfusion(s) Oncologic (Cancer) History: Reports: Lung, Other (See Below) Other Oncologic History: possible uterine or ovarian CA at age 21 - Infectious Disease History Infectious Disease History: Reports: MRSA Other Infectious Disease History: Client denies history of C. Diff or MRSA - Past Surgical History Respiratory Surgical History: Reports: Lung Biopsies, Lung Resection Other Respiratory Surgeries/Procedures: left lobectomy; mass removed from right ; hx of lung CA GI Surgical History: Reports: Appendectomy, Cholecystectomy, Colonoscopy, Other (See Below) Female Surgical History: Reports: Hysterectomy Social & Family History - Family History Family Medical History: Noncontributory HEENT: Reports: None Cardiac: Reports: None Respiratory: Reports: None Endocrine/Metabolic: Reports: Diabetes, type II Oncologic: Reports: Breast, Liver, Lung - Tobacco Use Smoking Status *Q: Current Every Day Smoker Years of Tobacco use: 55 Packs/Tins Daily: 0.5 - Caffeine Use Caffeine Use: Reports: None - Alcohol Use Alcohol Use History: No - Recreational Drug Use Recreational Drug Use: No - Living Situation & Occupation Living situation: Reports: , Other (grand-daughter helps with cares.) Occupation: Retired H&P Review of Systems - Review of Systems: Review Of Systems: See Below General: Reports: Malaise, Weakness, Fatigue, Weight Loss. Denies: Fever, Chills HEENT: Reports: No Symptoms. Denies: Headaches, Sore Throat, Vertigo, Visual Changes Pulmonary: Reports: Shortness of Breath, Cough, Sputum. Denies: Hemoptysis Cardiovascular: Reports: Dyspnea on Exertion. Denies: Chest Pain, Syncope Gastrointestinal: Reports: No Symptoms. Denies: Abdominal Pain, Black Stool, Bloody Stool, Constipation, Diarrhea, Nausea Genitourinary: Reports: No Symptoms. Denies: Dysuria, Frequency, Burning Musculoskeletal: Reports: No Symptoms Skin: Reports: No Symptoms Neurological: Reports: No Symptoms Hematologic/Lymphatic: Reports: No Symptoms Immunologic: Reports: No Symptoms Exam - Exam Exam: See Below - Vital Signs Vital Signs: Last Vital Signs Temp 97.8 F 06/15/19 16:35 Pulse 102 H 06/15/19 16:35 Resp 19 06/15/19 16:35 BP 127/68 06/15/19 16:35 Pulse Ox 92 L 06/15/19 16:38 Weight: 47.174 kg - Exam General: Alert, Oriented Neck: Supple. No: JVD Lungs: Decreased Breath Sounds, Crackles (bibasilar). No: Normal Respiratory Effort (dyspnea with speech) Cardiovascular: Regular Rate, Regular Rhythm, Tachycardia (intermittently) Extremities: Normal Inspection, Normal Range of Motion, Non-Tender, No Pedal Edema Skin: Warm, Dry Neuro Extensive - Mental Status: Alert, Oriented x3 Neuro Extensive - Motor, Sensory, Reflexes: CN II-XII Intact Psychiatric: Alert, Normal Affect, Normal Mood - Patient Data Lab Results Last 24 hrs: Laboratory Results - last 24 hr 06/15/19 06/15/19 06/15/19 Range/Units 15:30 15:30 15:30 WBC 17.94 H (4.0-11.0) K/uL RBC 4.20 L (4.30-5.90) M/uL Hgb 12.3 (12.0-16.0) g/dL Hct 36.2 (36.0-46.0) % MCV 86.2 (80.0-98.0) fL MCH 29.3 (27.0-32.0) pg MCHC 34.0 (31.0-37.0) g/dL RDW Std Deviation 49.5 (28.0-62.0) fl RDW Coeff of Danisha 16 H (11.0-15.0) % Plt Count 546 H (150-400) K/uL MPV 10.00 (7.40-12.00) fL Neut % (Auto) 80.6 H (48.0-80.0) % Lymph % (Auto) 12.7 L (16.0-40.0) % [place] % (Auto) 6.4 (0.0-15.0) % Eos % (Auto) 0.1 (0.0-7.0) % Baso % (Auto) 0.2 (0.0-1.5) % Neut # (Auto) 14.5 H (1.4-5.7) K/uL Lymph # (Auto) 2.3 (0.6-2.4) K/uL [place] # (Auto) 1.1 H (0.0-0.8) K/uL Eos # (Auto) 0.0 (0.0-0.7) K/uL Baso # (Auto) 0.0 (0.0-0.1) K/uL Nucleated RBC % 0.0 /100WBC Nucleated RBCs # 0 K/uL INR 1.46 Sodium 135 L (136-145) mmol/L Potassium 5.1 (3.5-5.1) mmol/L Chloride 97 L (98-107) mmol/L Carbon Dioxide 30.7 (21.0-32.0) mmol/L BUN 29 H (7.0-18.0) mg/dL Creatinine 0.9 (0.6-1.0) mg/dL Est Cr Clr Drug Dosing 41.46 mL/min Estimated GFR (MDRD) > 60.0 ml/min Glucose 102 (74-106) mg/dL Calcium 9.1 (8.5-10.1) mg/dL Total Bilirubin 0.7 (0.2-1.0) mg/dL AST 27 (15-37) IU/L ALT 21 (14-63) IU/L Alkaline Phosphatase 112 (46-116) U/L Troponin I < 0.050 (0.000-0.056) ng/mL B-Natriuretic Peptide (<100) PG/ML Total Protein 7.0 (6.4-8.2) g/dL Albumin 2.2 L (3.4-5.0) g/dL Globulin 4.8 H (2.6-4.0) g/dL Albumin/Globulin Ratio 0.5 L (0.9-1.6) Urine Color Urine Appearance Urine pH (5.0-8.0) Ur Specific [place] (1.001-1.035) Urine Protein (NEGATIVE) mg/dL Urine Glucose (UA) (NEGATIVE) mg/dL Urine Ketones (NEGATIVE) mg/dL Urine Occult Blood (NEGATIVE) Urine Nitrite (NEGATIVE) Urine Bilirubin (NEGATIVE) Urine Urobilinogen (<2.0) EU/dL Ur Leukocyte Esterase (NEGATIVE) 06/15/19 06/15/19 Range/Units 15:30 15:50 WBC (4.0-11.0) K/uL RBC (4.30-5.90) M/uL Hgb (12.0-16.0) g/dL Hct (36.0-46.0) % MCV (80.0-98.0) fL MCH (27.0-32.0) pg MCHC (31.0-37.0) g/dL RDW Std Deviation (28.0-62.0) fl RDW Coeff of Danisha (11.0-15.0) % Plt Count (150-400) K/uL MPV (7.40-12.00) fL Neut % (Auto) (48.0-80.0) % Lymph % (Auto) (16.0-40.0) % [place] % (Auto) (0.0-15.0) % Eos % (Auto) (0.0-7.0) % Baso % (Auto) (0.0-1.5) % Neut # (Auto) (1.4-5.7) K/uL Lymph # (Auto) (0.6-2.4) K/uL [place] # (Auto) (0.0-0.8) K/uL Eos # (Auto) (0.0-0.7) K/uL Baso # (Auto) (0.0-0.1) K/uL Nucleated RBC % /100WBC Nucleated RBCs # K/uL INR Sodium (136-145) mmol/L Potassium (3.5-5.1) mmol/L Chloride (98-107) mmol/L Carbon Dioxide (21.0-32.0) mmol/L BUN (7.0-18.0) mg/dL Creatinine (0.6-1.0) mg/dL Est Cr Clr Drug Dosing mL/min Estimated GFR (MDRD) ml/min Glucose (74-106) mg/dL Calcium (8.5-10.1) mg/dL Total Bilirubin (0.2-1.0) mg/dL AST (15-37) IU/L ALT (14-63) IU/L Alkaline Phosphatase (46-116) U/L Troponin I (0.000-0.056) ng/mL B-Natriuretic Peptide 198 H (<100) PG/ML Total Protein (6.4-8.2) g/dL Albumin (3.4-5.0) g/dL Globulin (2.6-4.0) g/dL Albumin/Globulin Ratio (0.9-1.6) Urine Color DARK YELLOW Urine Appearance CLEAR Urine pH 6.0 (5.0-8.0) Ur Specific [place] 1.015 (1.001-1.035) Urine Protein NEGATIVE (NEGATIVE) mg/dL Urine Glucose (UA) NEGATIVE (NEGATIVE) mg/dL Urine Ketones NEGATIVE (NEGATIVE) mg/dL Urine Occult Blood NEGATIVE (NEGATIVE) Urine Nitrite NEGATIVE (NEGATIVE) Urine Bilirubin NEGATIVE (NEGATIVE) Urine Urobilinogen 0.2 (<2.0) EU/dL Ur Leukocyte Esterase NEGATIVE (NEGATIVE) Result Diagrams: 06/15/19 15:30 06/15/19 15:30 [place]onaldo Results Last 24 hrs: Microbiology 06/15/19 15:24 Influenza Type A Antigen Screen - Final Nasopharyngeal Swab NEGATIVE INFLUENZA A VIRUS AG REFERENCE RANGE: NEGATIVE Influenza Type B Antigen Screen - Final NEGATIVE INFLUENZA B VIRUS AG REFERENCE RANGE: NEGATIVE - Problem List (1) Acute respiratory failure with hypoxia SNOMED Code(s): 58811893, 953835346 ICD Code: J96.01 - ACUTE RESPIRATORY FAILURE WITH HYPOXIA Status: Acute Current Visit: Yes (2) Gram-negative infection SNOMED Code(s): 943931007 ICD Code: A49.9 - BACTERIAL INFECTION, UNSPECIFIED Status: Suspected Current Visit: Yes (3) HCAP (healthcare-associated pneumonia) SNOMED Code(s): 656013318, 396267413 ICD Code: J18.9 - PNEUMONIA, UNSPECIFIED ORGANISM Status: Acute Current Visit: Yes (4) Hx of cancer of lung SNOMED Code(s): 320810347, 894940533 ICD Code: Z85.118 - PERSONAL HISTORY OF MALIGNANT NEOPLASM OF BRONCHUS AND LUNG Status: Chronic Current Visit: Yes (5) H/O pneumonectomy SNOMED Code(s): 451887644 ICD Code: Z98.890 - OTHER SPECIFIED POSTPROCEDURAL STATES; Z90.2 - ACQUIRED ABSENCE OF LUNG [PART OF] Status: Chronic Current Visit: Yes (6) Depression SNOMED Code(s): 01225067 ICD Code: F32.9 - MAJOR DEPRESSIVE DISORDER, SINGLE EPISODE, UNSPECIFIED Status: Chronic Current Visit: Yes (7) Tobacco use SNOMED Code(s): 742981737 ICD Code: Z72.0 - TOBACCO USE Status: Chronic Current Visit: Yes Problem List Initiated/Reviewed/Updated: Yes Orders Last 24hrs: Active Orders 24 hr Category Date Time Status Patient Status [ADT] Stat ADT 06/15/19 16:56 Ordered EKG Documentation Completion [RC] STAT Care 06/15/19 13:59 Active RT Aerosol Therapy [RC] ASDIRECTED Care 06/15/19 14:00 Active CULTURE BLOOD [BC] Stat Lab 06/15/19 16:04 Ordered CULTURE BLOOD [BC] Stat Lab 06/15/19 16:04 Ordered LACTATE WITH REFLEX [BG] Stat Lab 06/15/19 16:04 Ordered Pharmacy to Dose - Vancomycin Med 06/15/19 17:15 Ordered 1 dose .XX ASDIRECTED Piperacillin/Tazobactam [Piperacil-Tazobact] 4.5 gm Med 06/15/19 16:45 Active Sodium Chloride 0.9% [Normal Saline] 100 ml IV Q6H Sodium Chloride 0.9% [Normal Saline] 1,000 ml Med 06/15/19 17:00 Ordered IV ASDIRECTED Sodium Chloride 0.9% [Normal Saline] 1,000 ml Med 06/15/19 15:45 Active IV STAT Sodium Chloride 0.9% [Saline Flush] Med 06/15/19 13:59 Active 10 ml FLUSH ASDIRECTED PRN Sodium Chloride 0.9% [Saline Flush] Med 06/15/19 13:59 Active 2.5 ml FLUSH ASDIRECTED PRN Blood Culture x2 Reflex Set [OM.PC] Stat Oth 06/15/19 16:04 Ordered Saline Lock Insert [OM.PC] Stat Oth 06/15/19 13:59 Ordered Medication Orders Sodium Chloride (Normal Saline) 1,000 mls @ 125 mls/hr IV STAT [facility] Last Admin: 06/15/19 16:09 Dose: 125 mls/hr Piperacillin Sod/Tazobactam (Sod 4.5 gm/ Sodium Chloride) 100 mls @ 100 mls/hr IV Q6H [facility] Sodium Chloride (Normal Saline) 1,000 mls @ 100 mls/hr IV ASDIRECTED [facility] Sodium Chloride (Saline Flush) 10 ml FLUSH ASDIRECTED PRN PRN Reason: Keep Vein Open Last Admin: 06/15/19 14:14 Dose: 10 ml Sodium Chloride (Saline Flush) 2.5 ml FLUSH ASDIRECTED PRN PRN Reason: Keep Vein Open Last Admin: 06/15/19 14:14 Dose: 2.5 ml Vancomycin HCl (Pharmacy To Dose - Vancomycin) 1 dose .XX ASDIRECTED [facility] Assessment/Plan Comment:: This 73 year old female admitted with acute hypoxic respiratory failure and HCAP 1. Acute hypoxic respiratory failure: Supplement with Oxygen as needed to keep sats 90%. Pro, PRN. IS hourly. Treat HCAP. No wheezing, will not add steroids currently 2. HCAP, suspected gram negative infection: Had major lung surgery 6 weeks ago in [place], [place] with chest tubes in place. Treat with Vancomycin and Zosyn. BC pending. Obtain Sputum culture as well. If slow improvement consider Chest CT to evaluate further. 3. Depression: Continue Sertraline VTE prophylaxis: Heparin Dispo: 3 days. - Mortality Measure Prognosis:: Good
[2019-06-15] MEDS: Piperacillin/Tazobactam 4.5 GM in Sodium Chloride 0.9% 100 ML IV SCH ×2 (17:54→22:58)
[2019-06-15] MEDS: Sodium Chloride 0.9% 1,000 ML IV SCH (18:03)
[2019-06-15] MEDS: Heparin Sodium 5,000 Units/ML Vial SUBCUT SCH (18:33)
[2019-06-16] MEDS: Heparin Sodium 5,000 Units/ML Vial SUBCUT SCH ×3 (01:15→17:29)
[2019-06-16] MEDS: Piperacillin/Tazobactam 4.5 GM in Sodium Chloride 0.9% 100 ML IV SCH ×4 (04:23→22:57)
[2019-06-16] MEDS: Sodium Chloride 0.9% 1,000 ML IV SCH ×2 (04:52→17:26)
[2019-06-16 06:41] LABS: BLOOD UREA NITROGEN,BUN 24 mg/dL (7.0-18.0); CARBON DIOXIDE,CO2 26.1 mmol/L (21.0-32.0); CHLORIDE,CL 99 mmol/L (98-107); GLUCOSE RANDOM 125 mg/dL (74-106); POTASSIUM,K 4.8 mmol/L (3.5-5.1); SODIUM,NA 133 mmol/L (136-145)
[2019-06-16] MEDS: Calcium Carbonate 500 MG Tab.Chew PO SCH (08:37)
[2019-06-16] MEDS: Cholecalciferol (Vitamin D3) 25 MCG Tab PO SCH ×2 (08:38→08:39)
[2019-06-16] MEDS: Docusate Sodium 100 MG Cap PO SCH (08:40)
[2019-06-16] MEDS: Sertraline 50 MG Tab PO SCH (08:40)
[2019-06-16] MEDS: CHOLECALCIFEROL 5000 UNIT PO SCH (10:27)
[2019-06-16] MEDS ORDERED: Albuterol/Ipratropium 3.0-0.5 MG/3 ML Neb Soln NEB SCH (11:30)
--- NOTE | 2019-06-16 17:11 | PCM.PN ---
<Zion Poe - Last Filed: 06/16/19 17:07> - General Info Date of Service: 06/16/19 Subjective Update: reports feeling better this morning, tolerating PO diet well and having bowel movements. No complaints at this time. - Patient Data Vitals - Most Recent: Last Vital Signs Temp 98.0 F 06/16/19 12:00 Pulse 79 06/16/19 12:00 Resp 18 06/16/19 12:00 BP 135/63 06/16/19 12:00 Pulse Ox 92 L 06/16/19 12:00 Weight - Most Recent: 47.174 kg I&O - Last 24 Hours: Intake & Output 06/16/19 06/16/19 06/16/19 06:59 14:59 22:59 Intake Total 2019 300 Output Total 500 Balance 1519 300 Lab Results Last 24 Hours: Laboratory Results - last 24 hr 06/15/19 06/16/19 06/16/19 Range/Units 17:10 05:43 05:43 WBC 17.95 H (4.0-11.0) K/uL RBC 3.79 L (4.30-5.90) M/uL Hgb 10.9 L (12.0-16.0) g/dL Hct 32.4 L (36.0-46.0) % MCV 85.5 (80.0-98.0) fL MCH 28.8 (27.0-32.0) pg MCHC 33.6 (31.0-37.0) g/dL RDW Std Deviation 47.7 (28.0-62.0) fl RDW Coeff of Danisha 15 (11.0-15.0) % Plt Count 565 H (150-400) K/uL MPV 10.10 (7.40-12.00) fL Neut % (Auto) 93.1 H (48.0-80.0) % Lymph % (Auto) 5.5 L (16.0-40.0) % [place] % (Auto) 1.3 (0.0-15.0) % Eos % (Auto) 0.0 (0.0-7.0) % Baso % (Auto) 0.1 (0.0-1.5) % Neut # (Auto) 16.7 H (1.4-5.7) K/uL Lymph # (Auto) 1.0 (0.6-2.4) K/uL [place] # (Auto) 0.2 (0.0-0.8) K/uL Eos # (Auto) 0.0 (0.0-0.7) K/uL Baso # (Auto) 0.0 (0.0-0.1) K/uL Nucleated RBC % 0.0 /100WBC Nucleated RBCs # 0 K/uL Lactate 1.5 (0.20-2.00) mmol/L Sodium 133 L (136-145) mmol/L Potassium 4.8 (3.5-5.1) mmol/L Chloride 99 (98-107) mmol/L Carbon Dioxide 26.1 (21.0-32.0) mmol/L BUN 24 H (7.0-18.0) mg/dL Creatinine 0.9 (0.6-1.0) mg/dL Est Cr Clr Drug Dosing 41.46 mL/min Estimated GFR (MDRD) > 60.0 ml/min Glucose 125 H (74-106) mg/dL Calcium 8.0 L (8.5-10.1) mg/dL [place]onaldo Results Last 24 Hours: Microbiology 06/15/19 17:10 Anaerobic Blood Culture - Final Blood - Venous - Lab Draw 06/15/19 16:55 Anaerobic Blood Culture - Final Blood - Venous 06/15/19 15:24 Influenza Type A Antigen Screen - Final Nasopharyngeal Swab NEGATIVE INFLUENZA A VIRUS AG REFERENCE RANGE: NEGATIVE Influenza Type B Antigen Screen - Final NEGATIVE INFLUENZA B VIRUS AG REFERENCE RANGE: NEGATIVE Med Orders - Current: Current Medications Acetaminophen (Tylenol) 650 mg PO Q4H PRN PRN Reason: Pain (Mild 1-3)/fever Albuterol/Ipratropium (Duoneb 3.0-0.5 Mg/3 Ml) 3 ml NEB Q4H [facility] Calcium Carbonate/Glycine (Tums) 1,000 mg PO DAILY [facility] Last Admin: 06/16/19 08:37 Dose: 1,000 mg Docusate Sodium (Colace) 100 mg PO DAILY [facility] Last Admin: 06/16/19 08:40 Dose: 100 mg Heparin Sodium (Porcine) (Heparin Sodium) 5,000 units SUBCUT Q8H [facility] Last Admin: 06/16/19 08:41 Dose: 5,000 units Piperacillin Sod/Tazobactam (Sod 4.5 gm/ Sodium Chloride) 100 mls @ 100 mls/hr IV Q6H [facility] Last Admin: 06/16/19 11:05 Dose: 100 mls/hr Sodium Chloride (Normal Saline) 1,000 mls @ 100 mls/hr IV ASDIRECTED [facility] Last Admin: 06/16/19 04:52 Dose: 100 mls/hr Vancomycin HCl 0.75 gm/ Sodium (Chloride) 250 mls @ 166.667 mls/hr IV Q12H [facility] Last Admin: 06/16/19 08:33 Dose: 166.667 mls/hr Ondansetron HCl (Zofran) 4 mg IVPUSH Q4H PRN PRN Reason: Nausea Cholecalciferol ( Vitamin D3) 5000 Unit Tab 1 each PO DAILY [facility] Last Admin: 06/16/19 10:27 Dose: Not Given Sertraline HCl (Zoloft) 50 mg PO DAILY [facility] Last Admin: 06/16/19 08:40 Dose: 50 mg Sodium Chloride (Saline Flush) 10 ml FLUSH ASDIRECTED PRN PRN Reason: Keep Vein Open Last Admin: 06/15/19 14:14 Dose: 10 ml Sodium Chloride (Saline Flush) 2.5 ml FLUSH ASDIRECTED PRN PRN Reason: Keep Vein Open Last Admin: 06/15/19 14:14 Dose: 2.5 ml Discontinued Medications Albuterol/Ipratropium (Duoneb 3.0-0.5 Mg/3 Ml) 3 ml NEB ONETIME ONE Stop: 06/15/19 14:00 Last Admin: 06/15/19 14:14 Dose: 3 ml Albuterol/Ipratropium (Duoneb 3.0-0.5 Mg/3 Ml) 3 ml NEB Q4H [facility] Last Admin: 06/16/19 11:57 Dose: 3 ml Cholecalciferol (Vitamin D3) 125 mcg PO DAILY [facility] Last Admin: 06/16/19 08:39 Dose: 25 mcg Sodium Chloride (Normal Saline) 1,000 mls @ 125 mls/hr IV STAT [facility] Last Admin: 06/15/19 16:09 Dose: 125 mls/hr Vancomycin HCl 0.75 gm/ Sodium (Chloride) 250 mls @ 166.667 mls/hr IV Q12H [facility] Last Admin: 06/15/19 19:50 Dose: Not Given Methylprednisolone Sodium Succinate (Solu-Medrol) 125 mg IVPUSH ONETIME ONE Stop: 06/15/19 14:00 Last Admin: 06/15/19 14:14 Dose: 125 mg Vancomycin HCl (Pharmacy To Dose - Vancomycin) 1 dose .XX ASDIRECTED ONE Stop: 06/15/19 17:16 - Exam General: Alert, Oriented, Cooperative, No Acute Distress Lungs: Clear to Auscultation, Normal Respiratory Effort, Other (quiet breath sounds) Cardiovascular: Regular Rate, Regular Rhythm Extremities: No Pedal Edema - Problem List Review Problem List Initiated/Reviewed/Updated: Yes - My Orders Last 24 Hours: My Active Orders 06/16/19 11:19 RT Aerosol Therapy [RC] ASDIRECTED 06/16/19 18:00 Albuterol/Ipratropium [DuoNeb 3.0-0.5 MG/3 ML] 3 ml NEB Q4H - Plan Plan:: Assessment/Plan: 1. Acute hypoxic respiratory failure secondary to HCAP: Continue supplemental oxygen and duonebs q4. Remains on vancomycin and zosyn. Blood cultures pending. Sputum culture pending. 2. History of lung cancer s/p left lobe lung resection and right pulmonary tumor resection. 2. Past medical history of depression: continue sertraline. <Isael Baker - Last Filed: 06/16/19 20:14> - Patient Data Vitals - Most Recent: Last Vital Signs Temp 36.7 C 06/16/19 16:00 Pulse 102 H 06/16/19 16:00 Resp 20 06/16/19 16:00 BP 149/85 H 06/16/19 16:00 Pulse Ox 90 L 06/16/19 16:00 I&O - Last 24 Hours: Intake & Output 06/16/19 06/16/19 06/16/19 06:59 14:59 22:59 Intake Total 2019 300 1385 Output Total 500 1000 Balance 1519 300 385 Lab Results Last 24 Hours: Laboratory Results - last 24 hr 06/16/19 06/16/19 Range/Units 05:43 05:43 WBC 17.95 H (4.0-11.0) K/uL RBC 3.79 L (4.30-5.90) M/uL Hgb 10.9 L (12.0-16.0) g/dL Hct 32.4 L (36.0-46.0) % MCV 85.5 (80.0-98.0) fL MCH 28.8 (27.0-32.0) pg MCHC 33.6 (31.0-37.0) g/dL RDW Std Deviation 47.7 (28.0-62.0) fl RDW Coeff of Danisha 15 (11.0-15.0) % Plt Count 565 H (150-400) K/uL MPV 10.10 (7.40-12.00) fL Neut % (Auto) 93.1 H (48.0-80.0) % Lymph % (Auto) 5.5 L (16.0-40.0) % [place] % (Auto) 1.3 (0.0-15.0) % Eos % (Auto) 0.0 (0.0-7.0) % Baso % (Auto) 0.1 (0.0-1.5) % Neut # (Auto) 16.7 H (1.4-5.7) K/uL Lymph # (Auto) 1.0 (0.6-2.4) K/uL [place] # (Auto) 0.2 (0.0-0.8) K/uL Eos # (Auto) 0.0 (0.0-0.7) K/uL Baso # (Auto) 0.0 (0.0-0.1) K/uL Nucleated RBC % 0.0 /100WBC Nucleated RBCs # 0 K/uL Sodium 133 L (136-145) mmol/L Potassium 4.8 (3.5-5.1) mmol/L Chloride 99 (98-107) mmol/L Carbon Dioxide 26.1 (21.0-32.0) mmol/L BUN 24 H (7.0-18.0) mg/dL Creatinine 0.9 (0.6-1.0) mg/dL Est Cr Clr Drug Dosing 41.46 mL/min Estimated GFR (MDRD) > 60.0 ml/min Glucose 125 H (74-106) mg/dL Calcium 8.0 L (8.5-10.1) mg/dL [place]onaldo Results Last 24 Hours: Microbiology 06/15/19 17:10 Aerobic Blood Culture - Preliminary Blood - Venous - Lab Draw NO GROWTH AFTER 1 DAY Anaerobic Blood Culture - Final 06/15/19 16:55 Aerobic Blood Culture - Preliminary Blood - Venous NO GROWTH AFTER 1 DAY Anaerobic Blood Culture - Final 06/15/19 15:24 Influenza Type A Antigen Screen - Final Nasopharyngeal Swab NEGATIVE INFLUENZA A VIRUS AG REFERENCE RANGE: NEGATIVE Influenza Type B Antigen Screen - Final NEGATIVE INFLUENZA B VIRUS AG REFERENCE RANGE: NEGATIVE Med Orders - Current: Current Medications Acetaminophen (Tylenol) 650 mg PO Q4H PRN PRN Reason: Pain (Mild 1-3)/fever Albuterol/Ipratropium (Duoneb 3.0-0.5 Mg/3 Ml) 3 ml NEB Q4H [facility] Last Admin: 06/16/19 18:20 Dose: 3 ml Calcium Carbonate/Glycine (Tums) 1,000 mg PO DAILY [facility] Last Admin: 06/16/19 08:37 Dose: 1,000 mg Docusate Sodium (Colace) 100 mg PO DAILY [facility] Last Admin: 06/16/19 08:40 Dose: 100 mg Heparin Sodium (Porcine) (Heparin Sodium) 5,000 units SUBCUT Q8H [facility] Last Admin: 06/16/19 17:29 Dose: 5,000 units Piperacillin Sod/Tazobactam (Sod 4.5 gm/ Sodium Chloride) 100 mls @ 100 mls/hr IV Q6H [facility] Last Admin: 06/16/19 18:15 Dose: 100 mls/hr Sodium Chloride (Normal Saline) 1,000 mls @ 100 mls/hr IV ASDIRECTED [facility] Last Admin: 06/16/19 17:26 Dose: 100 mls/hr Vancomycin HCl 0.75 gm/ Sodium (Chloride) 250 mls @ 166.667 mls/hr IV Q12H [facility] Last Admin: 06/16/19 08:33 Dose: 166.667 mls/hr Ondansetron HCl (Zofran) 4 mg IVPUSH Q4H PRN PRN Reason: Nausea Cholecalciferol ( Vitamin D3) 5000 Unit Tab 1 each PO DAILY [facility] Last Admin: 06/16/19 10:27 Dose: Not Given Sertraline HCl (Zoloft) 50 mg PO DAILY [facility] Last Admin: 06/16/19 08:40 Dose: 50 mg Sodium Chloride (Saline Flush) 10 ml FLUSH ASDIRECTED PRN PRN Reason: Keep Vein Open Last Admin: 06/15/19 14:14 Dose: 10 ml Sodium Chloride (Saline Flush) 2.5 ml FLUSH ASDIRECTED PRN PRN Reason: Keep Vein Open Last Admin: 06/15/19 14:14 Dose: 2.5 ml Discontinued Medications Albuterol/Ipratropium (Duoneb 3.0-0.5 Mg/3 Ml) 3 ml NEB ONETIME ONE Stop: 06/15/19 14:00 Last Admin: 06/15/19 14:14 Dose: 3 ml Albuterol/Ipratropium (Duoneb 3.0-0.5 Mg/3 Ml) 3 ml NEB Q4H [facility] Last Admin: 06/16/19 11:57 Dose: 3 ml Cholecalciferol (Vitamin D3) 125 mcg PO DAILY [facility] Last Admin: 06/16/19 08:39 Dose: 25 mcg Sodium Chloride (Normal Saline) 1,000 mls @ 125 mls/hr IV STAT [facility] Last Admin: 06/15/19 16:09 Dose: 125 mls/hr Vancomycin HCl 0.75 gm/ Sodium (Chloride) 250 mls @ 166.667 mls/hr IV Q12H [facility] Last Admin: 06/15/19 19:50 Dose: Not Given Methylprednisolone Sodium Succinate (Solu-Medrol) 125 mg IVPUSH ONETIME ONE Stop: 06/15/19 14:00 Last Admin: 06/15/19 14:14 Dose: 125 mg Vancomycin HCl (Pharmacy To Dose - Vancomycin) 1 dose .XX ASDIRECTED ONE Stop: 06/15/19 17:16 - Plan Plan:: I have seen and evaluated the patient and agree with the residents note unless specified in my note
[2019-06-16] MEDS: Albuterol/Ipratropium 3.0-0.5 MG/3 ML Neb Soln NEB SCH ×2 (18:20→22:54)
[2019-06-17] MEDS: Heparin Sodium 5,000 Units/ML Vial SUBCUT SCH ×3 (01:49→16:42)
[2019-06-17] MEDS: Albuterol/Ipratropium 3.0-0.5 MG/3 ML Neb Soln NEB SCH ×3 (01:50→09:42)
[2019-06-17] MEDS: Piperacillin/Tazobactam 4.5 GM in Sodium Chloride 0.9% 100 ML IV SCH ×4 (04:39→23:19)
[2019-06-17 05:55] LABS: BLOOD UREA NITROGEN,BUN 17 mg/dL (7.0-18.0); CARBON DIOXIDE,CO2 26.8 mmol/L (21.0-32.0); CHLORIDE,CL 100 mmol/L (98-107); GLUCOSE RANDOM 112 mg/dL (74-106); POTASSIUM,K 3.8 mmol/L (3.5-5.1); SODIUM,NA 136 mmol/L (136-145)
--- NOTE | 2019-06-17 07:44 | PCM.PN ---
- General Info Date of Service: 06/17/19 Admission Dx/Problem (Free Text): Admission Diagnosis/Problem Admission Diagnosis/Problem Healthcare-associated pneumonia Subjective Update: Feeling improved, but very tired, hasn't slept well. No chest pain and breathing has improved. Reports L shoulder pain, upper back and shoulder, hurts with palpation of trapezius and movement of shoulder. Cough improved. Wants something for sleep and pain. Functional Status: Reports: Tolerating Diet, Ambulating, Urinating. Denies: Pain Controlled - Review of Systems General: Reports: No Symptoms HEENT: Reports: No Symptoms. Denies: Headaches, Sore Throat, Visual Changes Pulmonary: Reports: No Symptoms, Cough (mild, improved). Denies: Shortness of Breath Cardiovascular: Reports: No Symptoms. Denies: Chest Pain Gastrointestinal: Reports: Decreased Appetite. Denies: Abdominal Pain, Nausea, Vomiting Genitourinary: Reports: No Symptoms. Denies: Dysuria, Frequency, Burning Musculoskeletal: Reports: Shoulder Pain (L shoulder,) Neurological: Reports: No Symptoms Psychiatric: Reports: No Symptoms - Patient Data Vitals - Most Recent: Last Vital Signs Temp 98 F 06/17/19 04:00 Pulse 95 06/17/19 04:00 Resp 20 06/17/19 04:00 BP 137/75 06/17/19 04:00 Pulse Ox 90 L 06/17/19 04:00 Weight - Most Recent: 47.174 kg I&O - Last 24 Hours: Intake & Output 06/16/19 06/17/19 06/17/19 22:59 06:59 14:59 Intake Total 1385 1250 Output Total 1000 2400 Balance 385 -1150 Lab Results Last 24 Hours: Laboratory Results - last 24 hr 06/17/19 06/17/19 Range/Units 05:15 05:15 WBC 19.37 H (4.0-11.0) K/uL RBC 3.73 L (4.30-5.90) M/uL Hgb 10.8 L (12.0-16.0) g/dL Hct 31.7 L (36.0-46.0) % MCV 85.0 (80.0-98.0) fL MCH 29.0 (27.0-32.0) pg MCHC 34.1 (31.0-37.0) g/dL RDW Std Deviation 48.6 (28.0-62.0) fl RDW Coeff of Danisha 16 H (11.0-15.0) % Plt Count 625 H (150-400) K/uL MPV 9.90 (7.40-12.00) fL Neut % (Auto) 86.3 H (48.0-80.0) % Lymph % (Auto) 8.6 L (16.0-40.0) % [place] % (Auto) 4.9 (0.0-15.0) % Eos % (Auto) 0.1 (0.0-7.0) % Baso % (Auto) 0.1 (0.0-1.5) % Neut # (Auto) 16.7 H (1.4-5.7) K/uL Lymph # (Auto) 1.7 (0.6-2.4) K/uL [place] # (Auto) 1.0 H (0.0-0.8) K/uL Eos # (Auto) 0.0 (0.0-0.7) K/uL Baso # (Auto) 0.0 (0.0-0.1) K/uL Nucleated RBC % 0.0 /100WBC Nucleated RBCs # 0 K/uL Sodium 136 (136-145) mmol/L Potassium 3.8 (3.5-5.1) mmol/L Chloride 100 (98-107) mmol/L Carbon Dioxide 26.8 (21.0-32.0) mmol/L BUN 17 (7.0-18.0) mg/dL Creatinine 0.9 (0.6-1.0) mg/dL Est Cr Clr Drug Dosing 41.46 mL/min Estimated GFR (MDRD) > 60.0 ml/min Glucose 112 H (74-106) mg/dL Calcium 7.7 L (8.5-10.1) mg/dL Donaldo Results Last 24 Hours: Microbiology 06/16/19 18:40 Gram Stain - Final Sputum - Expectorated 06/15/19 17:10 Aerobic Blood Culture - Preliminary Blood - Venous - Lab Draw NO GROWTH AFTER 1 DAY Anaerobic Blood Culture - Final 06/15/19 16:55 Aerobic Blood Culture - Preliminary Blood - Venous NO GROWTH AFTER 1 DAY Anaerobic Blood Culture - Final Med Orders - Current: Current Medications Acetaminophen (Tylenol) 650 mg PO Q4H PRN PRN Reason: Pain (Mild 1-3)/fever Albuterol/Ipratropium (Duoneb 3.0-0.5 Mg/3 Ml) 3 ml NEB Q4H [facility] Last Admin: 06/17/19 06:23 Dose: 3 ml Calcium Carbonate/Glycine (Tums) 1,000 mg PO DAILY [facility] Last Admin: 06/16/19 08:37 Dose: 1,000 mg Docusate Sodium (Colace) 100 mg PO DAILY [facility] Last Admin: 06/16/19 08:40 Dose: 100 mg Heparin Sodium (Porcine) (Heparin Sodium) 5,000 units SUBCUT Q8H [facility] Last Admin: 06/17/19 01:49 Dose: 5,000 units Piperacillin Sod/Tazobactam (Sod 4.5 gm/ Sodium Chloride) 100 mls @ 100 mls/hr IV Q6H [facility] Last Admin: 06/17/19 04:39 Dose: 100 mls/hr Sodium Chloride (Normal Saline) 1,000 mls @ 100 mls/hr IV ASDIRECTED [facility] Last Admin: 06/16/19 17:26 Dose: 100 mls/hr Vancomycin HCl 0.75 gm/ Sodium (Chloride) 250 mls @ 166.667 mls/hr IV Q12H [facility] Last Admin: 06/16/19 20:35 Dose: 166.667 mls/hr Ondansetron HCl (Zofran) 4 mg IVPUSH Q4H PRN PRN Reason: Nausea Cholecalciferol ( Vitamin D3) 5000 Unit Tab 1 each PO DAILY [facility] Last Admin: 06/16/19 10:27 Dose: Not Given Sertraline HCl (Zoloft) 50 mg PO DAILY [facility] Last Admin: 06/16/19 08:40 Dose: 50 mg Sodium Chloride (Saline Flush) 10 ml FLUSH ASDIRECTED PRN PRN Reason: Keep Vein Open Last Admin: 06/15/19 14:14 Dose: 10 ml Sodium Chloride (Saline Flush) 2.5 ml FLUSH ASDIRECTED PRN PRN Reason: Keep Vein Open Last Admin: 06/15/19 14:14 Dose: 2.5 ml Discontinued Medications Albuterol/Ipratropium (Duoneb 3.0-0.5 Mg/3 Ml) 3 ml NEB ONETIME ONE Stop: 06/15/19 14:00 Last Admin: 06/15/19 14:14 Dose: 3 ml Albuterol/Ipratropium (Duoneb 3.0-0.5 Mg/3 Ml) 3 ml NEB Q4H [facility] Last Admin: 06/16/19 11:57 Dose: 3 ml Cholecalciferol (Vitamin D3) 125 mcg PO DAILY [facility] Last Admin: 06/16/19 08:39 Dose: 25 mcg Sodium Chloride (Normal Saline) 1,000 mls @ 125 mls/hr IV STAT [facility] Last Admin: 06/15/19 16:09 Dose: 125 mls/hr Vancomycin HCl 0.75 gm/ Sodium (Chloride) 250 mls @ 166.667 mls/hr IV Q12H [facility] Last Admin: 06/15/19 19:50 Dose: Not Given Methylprednisolone Sodium Succinate (Solu-Medrol) 125 mg IVPUSH ONETIME ONE Stop: 06/15/19 14:00 Last Admin: 06/15/19 14:14 Dose: 125 mg Vancomycin HCl (Pharmacy To Dose - Vancomycin) 1 dose .XX ASDIRECTED ONE Stop: 06/15/19 17:16 - Exam General: Alert, Oriented, Cooperative, No Acute Distress Lungs: Crackles (basilar, much improved from admission) Cardiovascular: Regular Rate, Regular Rhythm GI/Abdominal Exam: Normal Bowel Sounds, Soft, Non-Tender Back Exam: Normal Inspection, Full Range of Motion Extremities: Normal Inspection, Normal Range of Motion, Non-Tender Neurological: No New Focal Deficit Psy/Mental Status: Alert, Normal Affect, Normal Mood - Problem List & Annotations (1) Acute respiratory failure with hypoxia SNOMED Code(s): 16433760, 063954924 Code(s): J96.01 - ACUTE RESPIRATORY FAILURE WITH HYPOXIA Status: Acute Current Visit: Yes (2) Gram-negative infection SNOMED Code(s): 926200423 Code(s): A49.9 - BACTERIAL INFECTION, UNSPECIFIED Status: Suspected Current Visit: Yes (3) HCAP (healthcare-associated pneumonia) SNOMED Code(s): 002105086, 238348610 Code(s): J18.9 - PNEUMONIA, UNSPECIFIED ORGANISM Status: Acute Current Visit: Yes (4) Hx of cancer of lung SNOMED Code(s): 987312284, 314007507 Code(s): Z85.118 - PERSONAL HISTORY OF MALIGNANT NEOPLASM OF BRONCHUS AND LUNG Status: Chronic Current Visit: Yes (5) H/O pneumonectomy SNOMED Code(s): 548181512 Code(s): Z98.890 - OTHER SPECIFIED POSTPROCEDURAL STATES; Z90.2 - ACQUIRED ABSENCE OF LUNG [PART OF] Status: Chronic Current Visit: Yes (6) Depression SNOMED Code(s): 75154711 Code(s): F32.9 - MAJOR DEPRESSIVE DISORDER, SINGLE EPISODE, UNSPECIFIED Status: Chronic Current Visit: Yes (7) Tobacco use SNOMED Code(s): 926556064 Code(s): Z72.0 - TOBACCO USE Status: Chronic Current Visit: Yes - Problem List Review Problem List Initiated/Reviewed/Updated: Yes - My Orders Last 24 Hours: My Active Orders 06/16/19 08:00 PT Evaluation and Treatment [CONS] Routine 06/16/19 09:00 Calcium Carbonate [Tums] 1,000 mg PO DAILY Docusate Sodium [Colace] 100 mg PO DAILY Sertraline [Zoloft] 50 mg PO DAILY 06/16/19 10:30 Patient's Own Medication [Ptom] 1 each PO DAILY 06/18/19 05:11 BMP [BASIC METABOLIC PANEL,BMP] [CHEM] AM CBC WITH AUTO DIFF [HEME] AM - Plan Plan:: This 73 year old female admitted with acute hypoxic respiratory failure and HCAP 1. Acute hypoxic respiratory failure: Improved, continues to need some supplemental Oxygen as needed to keep sats 90%. Felicianoonebs, PRN. IS hourly. 2. HCAP, suspected gram negative infection: Improving, leukocytosis is likely reactive and elevated due to steroids in ED on arrival, but they do not improve consider broadening coverage tomorrow. Continue with Vancomycin and Zosyn. Had major lung surgery 6 weeks ago in [place], [place] with chest tubes in place. BC negative x 1 day. Sputum culture pending. 3. Depression: Continue Sertraline 4. L shoulder pain: Hx of fracture to humerus with ORIF. Xrays today negative, will add Tramadol for some increased Musculoskeletal pain. VTE prophylaxis: Heparin DIspo: 2 days
[2019-06-17] MEDS: Sertraline 50 MG Tab PO SCH (08:11)
[2019-06-17] MEDS: Docusate Sodium 100 MG Cap PO SCH (08:11)
[2019-06-17] MEDS: Calcium Carbonate 500 MG Tab.Chew PO SCH (08:12)
[2019-06-17] MEDS: CHOLECALCIFEROL 5000 UNIT PO SCH (08:14)
[2019-06-17] MEDS: Sodium Chloride 0.9% 1,000 ML IV SCH (08:32)
[2019-06-17] MEDS ORDERED: Temazepam 15 MG Cap PO PRN (09:20)
[2019-06-17] MEDS ORDERED: Albuterol/Ipratropium 3.0-0.5 MG/3 ML Neb Soln NEB PRN (11:09)
--- NOTE | 2019-06-17 11:27 | CR ---
Left shoulder: Three views of the left shoulder were obtained. Comparison: No prior shoulder exam is available. Proximal humeral fracture is seen with plate and screws in place. Glenohumeral joint and acromioclavicular joint appears within normal limits. Interstitial changes are seen within the left lung. Impression: 1. Previous left humeral fracture with plate and screws in place. 2. Interstitial change within the left lung. Without prior chest x-ray uncertain if this is acute or chronic. 3. No acute bony abnormality is seen within the left shoulder. Diagnostic code #3 This report was dictated in [place] [employer] MTDD
[2019-06-17] MEDS: traMADol 50 MG Tab PO PRN ×2 (11:42→18:40)
[2019-06-17] MEDS ORDERED: Mirtazapine 15 MG Tab.DIS PO SCH (21:00)
[2019-06-18] MEDS: Heparin Sodium 5,000 Units/ML Vial SUBCUT SCH ×2 (00:23→09:20)
[2019-06-18] MEDS: traMADol 50 MG Tab PO PRN ×3 (00:27→13:16)
[2019-06-18 06:46] LABS: BLOOD UREA NITROGEN,BUN 8 mg/dL (7.0-18.0); CARBON DIOXIDE,CO2 30.1 mmol/L (21.0-32.0); CHLORIDE,CL 104 mmol/L (98-107); GLUCOSE RANDOM 80 mg/dL (74-106); POTASSIUM,K 4.5 mmol/L (3.5-5.1); SODIUM,NA 140 mmol/L (136-145)
[2019-06-18] MEDS: Piperacillin/Tazobactam 4.5 GM in Sodium Chloride 0.9% 100 ML IV SCH ×2 (06:53→11:54)
[2019-06-18] MEDS: Sertraline 50 MG Tab PO SCH (09:20)
[2019-06-18] MEDS: Docusate Sodium 100 MG Cap PO SCH (09:20)
[2019-06-18] MEDS: Calcium Carbonate 500 MG Tab.Chew PO SCH (09:20)
[2019-06-18] MEDS: CHOLECALCIFEROL 5000 UNIT PO SCH (09:21)
--- NOTE | 2019-06-18 09:29 | PCM.PN ---
- General Info Date of Service: 06/18/19 Subjective Update: Reports no shortness of breath, fevers, nausea or vomiting overnight. Having bowel movements and tolerating PO diet well. - Patient Data Vitals - Most Recent: Last Vital Signs Temp 99.0 F 06/18/19 07:15 Pulse 98 06/18/19 07:15 Resp 18 06/18/19 07:15 BP 147/76 H 06/18/19 07:15 Pulse Ox 95 06/18/19 07:15 Weight - Most Recent: 104 lb I&O - Last 24 Hours: Intake & Output 06/17/19 06/18/19 06/18/19 22:59 06:59 14:59 Intake Total 3348 1350 Output Total 2550 3150 Balance 798 -1800 Lab Results Last 24 Hours: Laboratory Results - last 24 hr 06/18/19 06/18/19 Range/Units 06:05 06:05 WBC 11.81 H (4.0-11.0) K/uL RBC 3.85 L (4.30-5.90) M/uL Hgb 11.1 L (12.0-16.0) g/dL Hct 33.7 L (36.0-46.0) % MCV 87.5 (80.0-98.0) fL MCH 28.8 (27.0-32.0) pg MCHC 32.9 (31.0-37.0) g/dL RDW Std Deviation 50.7 (28.0-62.0) fl RDW Coeff of Danisha 16 H (11.0-15.0) % Plt Count 579 H (150-400) K/uL MPV 9.60 (7.40-12.00) fL Neut % (Auto) 74.9 (48.0-80.0) % Lymph % (Auto) 15.1 L (16.0-40.0) % [place] % (Auto) 9.2 (0.0-15.0) % Eos % (Auto) 0.5 (0.0-7.0) % Baso % (Auto) 0.3 (0.0-1.5) % Neut # (Auto) 8.9 H (1.4-5.7) K/uL Lymph # (Auto) 1.8 (0.6-2.4) K/uL [place] # (Auto) 1.1 H (0.0-0.8) K/uL Eos # (Auto) 0.1 (0.0-0.7) K/uL Baso # (Auto) 0.0 (0.0-0.1) K/uL Nucleated RBC % 0.0 /100WBC Nucleated RBCs # 0 K/uL Sodium 140 (136-145) mmol/L Potassium 4.5 (3.5-5.1) mmol/L Chloride 104 (98-107) mmol/L Carbon Dioxide 30.1 (21.0-32.0) mmol/L BUN 8 (7.0-18.0) mg/dL Creatinine 0.8 (0.6-1.0) mg/dL Est Cr Clr Drug Dosing 46.64 mL/min Estimated GFR (MDRD) > 60.0 ml/min Glucose 80 (74-106) mg/dL Calcium 8.5 (8.5-10.1) mg/dL [place]onaldo Results Last 24 Hours: Microbiology 06/16/19 18:40 Gram Stain - Final Sputum - Expectorated Sputum Culture - Final Normal Respiratory Soni 06/15/19 17:10 Aerobic Blood Culture - Preliminary Blood - Venous - Lab Draw NO GROWTH AFTER 2 DAYS Anaerobic Blood Culture - Final 06/15/19 16:55 Aerobic Blood Culture - Preliminary Blood - Venous NO GROWTH AFTER 2 DAYS Anaerobic Blood Culture - Final Med Orders - Current: Current Medications Acetaminophen (Tylenol) 650 mg PO Q4H PRN PRN Reason: Pain (Mild 1-3)/fever Last Admin: 06/17/19 08:10 Dose: 650 mg Albuterol/Ipratropium (Duoneb 3.0-0.5 Mg/3 Ml) 3 ml NEB Q4H PRN PRN Reason: SOB/wheezing Calcium Carbonate/Glycine (Tums) 1,000 mg PO DAILY [facility] Last Admin: 06/18/19 09:20 Dose: 1,000 mg Docusate Sodium (Colace) 100 mg PO DAILY [facility] Last Admin: 06/18/19 09:20 Dose: 100 mg Heparin Sodium (Porcine) (Heparin Sodium) 5,000 units SUBCUT Q8H [facility] Last Admin: 06/18/19 09:20 Dose: 5,000 units Piperacillin Sod/Tazobactam (Sod 4.5 gm/ Sodium Chloride) 100 mls @ 100 mls/hr IV Q6H [facility] Last Admin: 06/18/19 06:53 Dose: 100 mls/hr Vancomycin HCl 1 gm/ Sodium (Chloride) 250 mls @ 166.667 mls/hr IV Q12H [facility] Last Admin: 06/18/19 09:22 Dose: 166.667 mls/hr Mirtazapine (Remeron) 15 mg PO BEDTIME [facility] Last Admin: 06/17/19 21:24 Dose: 15 mg Ondansetron HCl (Zofran) 4 mg IVPUSH Q4H PRN PRN Reason: Nausea Cholecalciferol ( Vitamin D3) 5000 Unit Tab 1 each PO DAILY [facility] Last Admin: 06/18/19 09:21 Dose: 1 each Sertraline HCl (Zoloft) 50 mg PO DAILY [facility] Last Admin: 06/18/19 09:20 Dose: 50 mg Sodium Chloride (Saline Flush) 10 ml FLUSH ASDIRECTED PRN PRN Reason: Keep Vein Open Last Admin: 06/15/19 14:14 Dose: 10 ml Sodium Chloride (Saline Flush) 2.5 ml FLUSH ASDIRECTED PRN PRN Reason: Keep Vein Open Last Admin: 06/15/19 14:14 Dose: 2.5 ml Tramadol HCl (Ultram) 50 mg PO Q6H PRN PRN Reason: Pain Last Admin: 06/18/19 07:19 Dose: 50 mg Discontinued Medications Albuterol/Ipratropium (Duoneb 3.0-0.5 Mg/3 Ml) 3 ml NEB ONETIME ONE Stop: 06/15/19 14:00 Last Admin: 06/15/19 14:14 Dose: 3 ml Albuterol/Ipratropium (Duoneb 3.0-0.5 Mg/3 Ml) 3 ml NEB Q4H [facility] Last Admin: 06/16/19 11:57 Dose: 3 ml Albuterol/Ipratropium (Duoneb 3.0-0.5 Mg/3 Ml) 3 ml NEB Q4H [facility] Last Admin: 06/17/19 09:42 Dose: 3 ml Cholecalciferol (Vitamin D3) 125 mcg PO DAILY [facility] Last Admin: 06/16/19 08:39 Dose: 25 mcg Sodium Chloride (Normal Saline) 1,000 mls @ 125 mls/hr IV STAT [facility] Last Admin: 06/15/19 16:09 Dose: 125 mls/hr Sodium Chloride (Normal Saline) 1,000 mls @ 100 mls/hr IV ASDIRECTED [facility] Last Admin: 06/17/19 08:32 Dose: 100 mls/hr Vancomycin HCl 0.75 gm/ Sodium (Chloride) 250 mls @ 166.667 mls/hr IV Q12H [facility] Last Admin: 06/15/19 19:50 Dose: Not Given Vancomycin HCl 0.75 gm/ Sodium (Chloride) 250 mls @ 166.667 mls/hr IV Q12H [facility] Last Admin: 06/17/19 09:58 Dose: Not Given Vancomycin HCl 1 gm/ Sodium (Chloride) 250 mls @ 166.667 mls/hr IV Q12H [facility] Last Admin: 06/17/19 09:58 Dose: Not Given Methylprednisolone Sodium Succinate (Solu-Medrol) 125 mg IVPUSH ONETIME ONE Stop: 06/15/19 14:00 Last Admin: 06/15/19 14:14 Dose: 125 mg Temazepam (Restoril) 15 mg PO BEDTIME PRN PRN Reason: Insomnia Vancomycin HCl (Pharmacy To Dose - Vancomycin) 1 dose .XX ASDIRECTED ONE Stop: 06/15/19 17:16 - Exam General: Alert, Oriented, Cooperative, No Acute Distress Lungs: Clear to Auscultation, Normal Respiratory Effort Cardiovascular: Regular Rate, Regular Rhythm Extremities: Normal Inspection, No Pedal Edema - Problem List Review Problem List Initiated/Reviewed/Updated: Yes - Plan Plan:: Assessment: 1. Acute hypoxic respiratory failure secondary to HCAP. 2. PMH of depression. Plan: 1. For acute hypoxic respiratory failure secondary to HCAP, duonebs prn and IS. Patient weaned off of oxygen. Continue vanc and zosyn. Leukocytosis downtrending. Blood cultures negative. 2. For depression patient is on sertraline and started on mirtazapine. VTE prophylaxis: Heparin
--- NOTE | 2019-06-18 11:49 | PCM.DCSUM1 ---
<Zion Poe - Last Filed: 06/18/19 12:29> Discharge Summary - Hospital Course Free Text/Narrative:: 73-year-old female admitted with acute hypoxic respiratory failure secondary to HCAP. She has a PMH of lung cancer s/p left lobe lung resection and right pulmonary tumor resection. She was treated with IV vancomycin and zosyn. CXR showed bilateral pulmonary infiltrates. Blood cultures negative. Leukocytosis was noted to be downtrending. She was successfully weaned off of oxygen. Patient was discharged in stable condition on levaquin for 7 days. - Discharge Data Discharge Date: 06/18/19 Discharge Disposition: Home, Self-Care 01 Condition: Stable - Referral to Home Health Primary Care Physician: Chalino Servin MD - Patient Summary/Data Consults: Consultations 06/16/19 08:00 PT Evaluation and Treatment [CONS] Routine - Patient Instructions Diet: Usual Diet as Tolerated Activity: As Tolerated Notify Provider of: Fever, Increased Pain, Swelling and Redness, Drainage, Nausea and/or Vomiting - Discharge Plan *PRESCRIPTION DRUG MONITORING PROGRAM REVIEWED*: Not Applicable *COPY OF PRESCRIPTION DRUG MONITORING REPORT IN PATIENT ROLF: Not Applicable Prescriptions/Med Rec: Levofloxacin [Levaquin] 750 mg PO DAILY 7 Days #7 tablet Mirtazapine [Remeron] 15 mg PO BEDTIME 30 Days #30 tab.dis Home Medications: Home Meds Calcium Carbonate [Calcium] 1,000 mg PO DAILY 08/18/17 [History] Cholecalciferol (Vitamin D3) [Vitamin D] 5,000 unit PO DAILY 08/18/17 [History] Sertraline HCl 50 mg PO DAILY 02/18/19 [History] Docusate Sodium [Colace] 100 mg PO DAILY 06/15/19 [History] Levofloxacin [Levaquin] 750 mg PO DAILY 7 Days #7 tablet 06/18/19 [Rx] Mirtazapine [Remeron] 15 mg PO BEDTIME 30 Days #30 tab.dis 06/18/19 [Rx] Patient Handouts: Mirtazapine tablets, Levofloxacin tablets, Healthcare- Associated Pneumonia Referrals: Chalino Servin MD [Primary Care Provider] - (follow-up in 1 week) - Discharge Summary/Plan Comment DC Time >30 min.: No - Patient Data Vitals - Most Recent: Last Vital Signs Temp 99.0 F 06/18/19 07:15 Pulse 98 06/18/19 07:15 Resp 18 06/18/19 07:15 BP 147/76 H 06/18/19 07:15 Pulse Ox 94 L 06/18/19 09:00 Weight - Most Recent: 47.174 kg I&O - Last 24 hours: Intake & Output 06/17/19 06/18/19 06/18/19 22:59 06:59 14:59 Intake Total 3348 1350 Output Total 2550 3150 Balance 798 -1800 Lab Results - Last 24 hrs: Laboratory Results - last 24 hr 06/18/19 06/18/19 Range/Units 06:05 06:05 WBC 11.81 H (4.0-11.0) K/uL RBC 3.85 L (4.30-5.90) M/uL Hgb 11.1 L (12.0-16.0) g/dL Hct 33.7 L (36.0-46.0) % MCV 87.5 (80.0-98.0) fL MCH 28.8 (27.0-32.0) pg MCHC 32.9 (31.0-37.0) g/dL RDW Std Deviation 50.7 (28.0-62.0) fl RDW Coeff of Danisha 16 H (11.0-15.0) % Plt Count 579 H (150-400) K/uL MPV 9.60 (7.40-12.00) fL Neut % (Auto) 74.9 (48.0-80.0) % Lymph % (Auto) 15.1 L (16.0-40.0) % [place] % (Auto) 9.2 (0.0-15.0) % Eos % (Auto) 0.5 (0.0-7.0) % Baso % (Auto) 0.3 (0.0-1.5) % Neut # (Auto) 8.9 H (1.4-5.7) K/uL Lymph # (Auto) 1.8 (0.6-2.4) K/uL [place] # (Auto) 1.1 H (0.0-0.8) K/uL Eos # (Auto) 0.1 (0.0-0.7) K/uL Baso # (Auto) 0.0 (0.0-0.1) K/uL Nucleated RBC % 0.0 /100WBC Nucleated RBCs # 0 K/uL Sodium 140 (136-145) mmol/L Potassium 4.5 (3.5-5.1) mmol/L Chloride 104 (98-107) mmol/L Carbon Dioxide 30.1 (21.0-32.0) mmol/L BUN 8 (7.0-18.0) mg/dL Creatinine 0.8 (0.6-1.0) mg/dL Est Cr Clr Drug Dosing 46.64 mL/min Estimated GFR (MDRD) > 60.0 ml/min Glucose 80 (74-106) mg/dL Calcium 8.5 (8.5-10.1) mg/dL NENA Results - Last 24 hrs: Microbiology 06/16/19 18:40 Gram Stain - Final Sputum - Expectorated Sputum Culture - Final Normal Respiratory Soni 06/15/19 17:10 Aerobic Blood Culture - Preliminary Blood - Venous - Lab Draw NO GROWTH AFTER 2 DAYS Anaerobic Blood Culture - Final 06/15/19 16:55 Aerobic Blood Culture - Preliminary Blood - Venous NO GROWTH AFTER 2 DAYS Anaerobic Blood Culture - Final Med Orders - Current: Current Medications Acetaminophen (Tylenol) 650 mg PO Q4H PRN PRN Reason: Pain (Mild 1-3)/fever Last Admin: 06/17/19 08:10 Dose: 650 mg Albuterol/Ipratropium (Duoneb 3.0-0.5 Mg/3 Ml) 3 ml NEB Q4H PRN PRN Reason: SOB/wheezing Calcium Carbonate/Glycine (Tums) 1,000 mg PO DAILY [facility] Last Admin: 06/18/19 09:20 Dose: 1,000 mg Docusate Sodium (Colace) 100 mg PO DAILY [facility] Last Admin: 06/18/19 09:20 Dose: 100 mg Heparin Sodium (Porcine) (Heparin Sodium) 5,000 units SUBCUT Q8H [facility] Last Admin: 06/18/19 09:20 Dose: 5,000 units Vancomycin HCl 1 gm/ Sodium (Chloride) 250 mls @ 166.667 mls/hr IV Q12H [facility] Last Admin: 06/18/19 09:22 Dose: 166.667 mls/hr Piperacillin Sod/Tazobactam (Sod 4.5 gm/ Sodium Chloride) 100 mls @ 100 mls/hr IV Q6H [facility] Mirtazapine (Remeron) 15 mg PO BEDTIME [facility] Last Admin: 06/17/19 21:24 Dose: 15 mg Ondansetron HCl (Zofran) 4 mg IVPUSH Q4H PRN PRN Reason: Nausea Cholecalciferol ( Vitamin D3) 5000 Unit Tab 1 each PO DAILY [facility] Last Admin: 06/18/19 09:21 Dose: 1 each Sertraline HCl (Zoloft) 50 mg PO DAILY [facility] Last Admin: 06/18/19 09:20 Dose: 50 mg Sodium Chloride (Saline Flush) 10 ml FLUSH ASDIRECTED PRN PRN Reason: Keep Vein Open Last Admin: 06/15/19 14:14 Dose: 10 ml Sodium Chloride (Saline Flush) 2.5 ml FLUSH ASDIRECTED PRN PRN Reason: Keep Vein Open Last Admin: 06/15/19 14:14 Dose: 2.5 ml Tramadol HCl (Ultram) 50 mg PO Q6H PRN PRN Reason: Pain Last Admin: 06/18/19 07:19 Dose: 50 mg Discontinued Medications Albuterol/Ipratropium (Duoneb 3.0-0.5 Mg/3 Ml) 3 ml NEB ONETIME ONE Stop: 06/15/19 14:00 Last Admin: 06/15/19 14:14 Dose: 3 ml Albuterol/Ipratropium (Duoneb 3.0-0.5 Mg/3 Ml) 3 ml NEB Q4H [facility] Last Admin: 06/16/19 11:57 Dose: 3 ml Albuterol/Ipratropium (Duoneb 3.0-0.5 Mg/3 Ml) 3 ml NEB Q4H [facility] Last Admin: 06/17/19 09:42 Dose: 3 ml Cholecalciferol (Vitamin D3) 125 mcg PO DAILY [facility] Last Admin: 06/16/19 08:39 Dose: 25 mcg Sodium Chloride (Normal Saline) 1,000 mls @ 125 mls/hr IV STAT [facility] Last Admin: 06/15/19 16:09 Dose: 125 mls/hr Piperacillin Sod/Tazobactam (Sod 4.5 gm/ Sodium Chloride) 100 mls @ 100 mls/hr IV Q6H [facility] Last Admin: 06/18/19 06:53 Dose: 100 mls/hr Sodium Chloride (Normal Saline) 1,000 mls @ 100 mls/hr IV ASDIRECTED [facility] Last Admin: 06/17/19 08:32 Dose: 100 mls/hr Vancomycin HCl 0.75 gm/ Sodium (Chloride) 250 mls @ 166.667 mls/hr IV Q12H [facility] Last Admin: 06/15/19 19:50 Dose: Not Given Vancomycin HCl 0.75 gm/ Sodium (Chloride) 250 mls @ 166.667 mls/hr IV Q12H [facility] Last Admin: 06/17/19 09:58 Dose: Not Given Vancomycin HCl 1 gm/ Sodium (Chloride) 250 mls @ 166.667 mls/hr IV Q12H [facility] Last Admin: 06/17/19 09:58 Dose: Not Given Methylprednisolone Sodium Succinate (Solu-Medrol) 125 mg IVPUSH ONETIME ONE Stop: 06/15/19 14:00 Last Admin: 06/15/19 14:14 Dose: 125 mg Temazepam (Restoril) 15 mg PO BEDTIME PRN PRN Reason: Insomnia Vancomycin HCl (Pharmacy To Dose - Vancomycin) 1 dose .XX ASDIRECTED ONE Stop: 06/15/19 17:16 <Isael Baker - Last Filed: 06/19/19 13:26> Discharge Summary - Hospital Course HPI Initial Comments: I have seen and evaluated the patient and agree with the residents note unless specified in my note - Referral to Home Health Primary Care Physician: Chalino Servin MD - Patient Summary/Data Consults: Consultations 06/16/19 08:00 PT Evaluation and Treatment [CONS] Routine - Patient Data Vitals - Most Recent: Last Vital Signs Temp 36.5 C 06/18/19 13:00 Pulse 84 06/18/19 13:00 Resp 18 06/18/19 13:00 BP 165/78 H 06/18/19 13:00 Pulse Ox 94 L 06/18/19 13:00 [facility]NA Results - Last 24 hrs: Microbiology 06/15/19 17:10 Aerobic Blood Culture - Preliminary Blood - Venous - Lab Draw NO GROWTH AFTER 3 DAYS Anaerobic Blood Culture - Final 06/15/19 16:55 Aerobic Blood Culture - Preliminary Blood - Venous NO GROWTH AFTER 3 DAYS Anaerobic Blood Culture - Final 06/16/19 18:40 Gram Stain - Final Sputum - Expectorated Sputum Culture - Final Normal Respiratory Soni Med Orders - Current: Current Medications Discontinued Medications Acetaminophen (Tylenol) 650 mg PO Q4H PRN PRN Reason: Pain (Mild 1-3)/fever Last Admin: 06/17/19 08:10 Dose: 650 mg Albuterol/Ipratropium (Duoneb 3.0-0.5 Mg/3 Ml) 3 ml NEB ONETIME ONE Stop: 06/15/19 14:00 Last Admin: 06/15/19 14:14 Dose: 3 ml Albuterol/Ipratropium (Duoneb 3.0-0.5 Mg/3 Ml) 3 ml NEB Q4H [facility] Last Admin: 06/16/19 11:57 Dose: 3 ml Albuterol/Ipratropium (Duoneb 3.0-0.5 Mg/3 Ml) 3 ml NEB Q4H [facility] Last Admin: 06/17/19 09:42 Dose: 3 ml Albuterol/Ipratropium (Duoneb 3.0-0.5 Mg/3 Ml) 3 ml NEB Q4H PRN PRN Reason: SOB/wheezing Calcium Carbonate/Glycine (Tums) 1,000 mg PO DAILY [facility] Last Admin: 06/18/19 09:20 Dose: 1,000 mg Cholecalciferol (Vitamin D3) 125 mcg PO DAILY [facility] Last Admin: 06/16/19 08:39 Dose: 25 mcg Docusate Sodium (Colace) 100 mg PO DAILY [facility] Last Admin: 06/18/19 09:20 Dose: 100 mg Heparin Sodium (Porcine) (Heparin Sodium) 5,000 units SUBCUT Q8H [facility] Last Admin: 06/18/19 09:20 Dose: 5,000 units Sodium Chloride (Normal Saline) 1,000 mls @ 125 mls/hr IV STAT [facility] Last Admin: 06/15/19 16:09 Dose: 125 mls/hr Piperacillin Sod/Tazobactam (Sod 4.5 gm/ Sodium Chloride) 100 mls @ 100 mls/hr IV Q6H [facility] Last Admin: 06/18/19 11:54 Dose: Not Given Sodium Chloride (Normal Saline) 1,000 mls @ 100 mls/hr IV ASDIRECTED [facility] Last Admin: 06/17/19 08:32 Dose: 100 mls/hr Vancomycin HCl 0.75 gm/ Sodium (Chloride) 250 mls @ 166.667 mls/hr IV Q12H [facility] Last Admin: 06/15/19 19:50 Dose: Not Given Vancomycin HCl 0.75 gm/ Sodium (Chloride) 250 mls @ 166.667 mls/hr IV Q12H [facility] Last Admin: 06/17/19 09:58 Dose: Not Given Vancomycin HCl 1 gm/ Sodium (Chloride) 250 mls @ 166.667 mls/hr IV Q12H [facility] Last Admin: 06/17/19 09:58 Dose: Not Given Vancomycin HCl 1 gm/ Sodium (Chloride) 250 mls @ 166.667 mls/hr IV Q12H [facility] Last Admin: 06/18/19 09:22 Dose: 166.667 mls/hr Piperacillin Sod/Tazobactam (Sod 4.5 gm/ Sodium Chloride) 100 mls @ 100 mls/hr IV Q6H [facility] Last Admin: 06/18/19 13:46 Dose: Not Given Methylprednisolone Sodium Succinate (Solu-Medrol) 125 mg IVPUSH ONETIME ONE Stop: 06/15/19 14:00 Last Admin: 06/15/19 14:14 Dose: 125 mg Mirtazapine (Remeron) 15 mg PO BEDTIME [facility] Last Admin: 06/17/19 21:24 Dose: 15 mg Ondansetron HCl (Zofran) 4 mg IVPUSH Q4H PRN PRN Reason: Nausea Cholecalciferol ( Vitamin D3) 5000 Unit Tab 1 each PO DAILY [facility] Last Admin: 06/18/19 09:21 Dose: 1 each Sertraline HCl (Zoloft) 50 mg PO DAILY [facility] Last Admin: 06/18/19 09:20 Dose: 50 mg Sodium Chloride (Saline Flush) 10 ml FLUSH ASDIRECTED PRN PRN Reason: Keep Vein Open Last Admin: 06/15/19 14:14 Dose: 10 ml Sodium Chloride (Saline Flush) 2.5 ml FLUSH ASDIRECTED PRN PRN Reason: Keep Vein Open Last Admin: 06/15/19 14:14 Dose: 2.5 ml Temazepam (Restoril) 15 mg PO BEDTIME PRN PRN Reason: Insomnia Tramadol HCl (Ultram) 50 mg PO Q6H PRN PRN Reason: Pain Last Admin: 06/18/19 13:16 Dose: 50 mg Vancomycin HCl (Pharmacy To Dose - Vancomycin) 1 dose .XX ASDIRECTED ONE Stop: 06/15/19 17:16
[2019-06-18] MEDS ORDERED: Piperacillin/Tazobactam 4.5 GM in Sodium Chloride 0.9% 100 ML IV SCH (13:00)
[2019-06-18 13:48] VITALS: BP 165/78; PULSE 84
== END 2019-06-18 13:30 | disposition home or self-care (01) | DRG 193 ==
LOC: MW.ED 13:39 → MW.MS 16:56
PROVIDERS: ADMIT Student in an Organized Health Care Education/Training Program; ATTEND Student in an Organized Health Care Education/Training Program
DX: J18.9 Pneumonia, unspecified organism (principal); J96.01 Acute respiratory failure with hypoxia; F17.210 Nicotine dependence, cigarettes, uncomplicated; Z88.8 Allergy status to other drugs, medicaments and biological substances; H54.7 Unspecified visual loss; J44.9 Chronic obstructive pulmonary disease, unspecified; F32.9 Major depressive disorder, single episode, unspecified; Z90.49 Acquired absence of other specified parts of digestive tract; Z90.710 Acquired absence of both cervix and uterus; D64.9 Anemia, unspecified; M25.512 Pain in left shoulder; Z85.118 Personal history of other malignant neoplasm of bronchus and lung; Z90.2 Acquired absence of lung [part of]; Z79.899 Other long term (current) drug therapy; Z99.81 Dependence on supplemental oxygen; Z91.048 Other nonmedicinal substance allergy status
CPT/HCPCS: 36415; 71046; 80053; 81003; 83880; 84484; 85025; 85610; 87040; 87804 ×2; 93005; 94640; 96374; 99285; J2930; J7040; 73030-26-LT; 73030-LT; 80048; 80202; 83605; 87070; 87205; 97161-GP; A9270-GY; J1644; J2543; J3370; J7030; J7050; J7620-GY

== ENCOUNTER 2019-07-30 11:55 | Observation (INO) | payer MEDICARE, OTHER ==
[2019-07-30] MEDS ORDERED: Sodium Chloride 0.9% 2.5 ML Syringe FLUSH PRN (12:23)
[2019-07-30] MEDS ORDERED: Sodium Chloride 0.9% 10 ML Syringe FLUSH PRN (12:23)
--- NOTE | 2019-07-30 12:44 | EDM.PDOC ---
ED HPI GENERAL MEDICAL PROBLEM - General Chief Complaint: General Stated Complaint: WEAK,FALLING DOWN Time Seen by Provider: 07/30/19 12:44 Source of Information: Reports: Patient History Limitations: Reports: No Limitations - History of Present Illness INITIAL COMMENTS - FREE TEXT/NARRATIVE: HISTORY AND PHYSICAL: History of present illness: Patient is a 73-year-old female presents to the ED With complaint of feeling weak. She states this morning she was making pancakes when she started feeling light headed. She states she was walking to sit down when she fell. She reports she felt dizzy which caused her to fall but she did not lose consciousness or hit her head. She states after she fell she was able to get up and walk down to have breakfast with someone in her apartment complex. She states she had a couple of bites of her food but was not feeling well so she went back up to her apartment. She states she feels like her muscles are weak today. She denies fevers, chills, nausea, vomiting, chest pain, shortness of breath, palpitations , abdominal pain, diarrhea, hematuria, dysuria, headache or extremity pain. She has history of lung resection secondary to lung cancer 2 years ago. She was admitted for pneumonia over [facility] and states since then she has had a lingering cough. She does cough up some clear/green sputum. Review of systems: As per history of present illness and below otherwise all systems reviewed and negative. Past medical history: As per history of present illness and as reviewed below otherwise noncontributory. Surgical history: As per history of present illness and as reviewed below otherwise noncontributory. Social history: No reported history of drug or alcohol abuse. Family history: As per history of present illness and as reviewed below otherwise noncontributory. Physical exam: General: Patient sitting comfortably in no acute distress and nontoxic appearing HEENT: Atraumatic, normocephalic, pupils reactive, negative for conjunctival pallor or scleral icterus, mucous membranes moist, throat clear, neck supple, nontender, trachea midline. No meningeal signs. Lungs: Mild wheezing and crackles to the left lung base, breath sounds equal bilaterally, chest nontender. Heart: S1S2, regular, negative for clicks, rubs, or overt murmur. Abdomen: Soft, nondistended, nontender. Negative for masses or hepatosplenomegaly. Negative for costovertebral tenderness. No rigidity, rebound , guarding. Pelvis: Stable nontender. Genitourinary: Deferred. Rectal: Deferred. Extremities: Atraumatic, negative for cords or calf pain. Neurovascular unremarkable. Neuro: Awake, alert, oriented. Cranial nerves II through XII unremarkable. Cerebellum unremarkable. Motor and sensory unremarkable throughout. Exam nonfocal. Notes: Diagnostics: CBC, CMP, PT/INR, Troponin, Magnesium, CXR, EKG Therapeutics: 500mL NS bolus 1L NS maintenance Prescriptions: Impression: Dehydration, observation s/p fall Plan: Discussed with hospitalist, patient will be admitted to observation for IV fluids for dehydration Definitive disposition and diagnosis as appropriate pending reevaluation and review of above. - Related Data Allergies Allergy/AdvReac Type Severity Reaction Status Date / Time adhesive tape Allergy Swelling Verified 07/30/19 12:18 Home Meds: Home Meds Calcium Carbonate [Calcium] 1,000 mg PO DAILY 08/18/17 [History] Cholecalciferol (Vitamin D3) [Vitamin D] 5,000 unit PO DAILY 08/18/17 [History] Docusate Sodium [Colace] 100 mg PO DAILY 06/15/19 [History] Mirtazapine [Remeron] 15 mg PO BEDTIME 30 Days #30 tab.dis 06/18/19 [Rx] Past Medical History HEENT History: Reports: Impaired Vision Other HEENT History: dentures top and bottom Cardiovascular History: Reports: None Respiratory History: Reports: COPD Gastrointestinal History: Reports: Bowel Obstruction Other Gastrointestinal History: 2014: required 2 ex laps. Peritonitis. Sepsis sydrome with shock. Prolonged ICU stay. Dr. Jin was the surgeon. Genitourinary History: Reports: None [employer] History: Reports: Polycystic Ovaries Musculoskeletal History: Reports: Fracture, Other (See Below) Other Musculoskeletal History: fractured arm age 2 Neurological History: Reports: None Psychiatric History: Reports: Depression Endocrine/Metabolic History: Reports: None Hematologic History: Reports: Anemia, Blood Transfusion(s) Oncologic (Cancer) History: Reports: Lung, Other (See Below) Other Oncologic History: possible uterine or ovarian CA at age 21 - Infectious Disease History Infectious Disease History: Reports: MRSA Other Infectious Disease History: Client denies history of C. Diff or MRSA - Past Surgical History Respiratory Surgical History: Reports: Lung Biopsies, Lung Resection Other Respiratory Surgeries/Procedures: left lobectomy; mass removed from right ; hx of lung CA GI Surgical History: Reports: Appendectomy, Cholecystectomy, Colonoscopy, Other (See Below) Female Surgical History: Reports: Hysterectomy Social & Family History - Family History Family Medical History: Noncontributory HEENT: Reports: None Cardiac: Reports: None Respiratory: Reports: None Endocrine/Metabolic: Reports: Diabetes, type II Oncologic: Reports: Breast, Liver, Lung - Tobacco Use Smoking Status *Q: Current Every Day Smoker Years of Tobacco use: 55 Packs/Tins Daily: 0.5 - Caffeine Use Caffeine Use: Reports: None - Recreational Drug Use Recreational Drug Use: No - Living Situation & Occupation Living situation: Reports: , Other (grand-daughter helps with cares.) Occupation: Retired ED ROS GENERAL - Review of Systems Review Of Systems: Comprehensive ROS is negative, except as noted in HPI. ED EXAM, GENERAL - Physical Exam Exam: See Below (see Dictation) Course - Vital Signs Last Recorded V/S: Last Vital Signs Temp 97.8 F 07/30/19 12:16 Pulse 87 07/30/19 12:16 Resp 18 07/30/19 12:16 BP 122/84 07/30/19 12:16 Pulse Ox 96 07/30/19 12:16 Orthostatic Blood Pressure [ 111/72 Standing] Orthostatic Blood Pressure [ 107/64 Sitting] Orthostatic Blood Pressure [ 130/77 Supine] - Orders/Labs/Meds Orders: Active Orders 24 hr Category Date Time Status EKG Documentation Completion [RC] STAT Care 07/30/19 12:23 Active Orthostatic Vital Signs [RC] ASDIRECTED Care 07/30/19 13:44 Active Sodium Chloride 0.9% [Normal Saline] 500 ml Med 07/30/19 13:15 Active IV STAT Sodium Chloride 0.9% [Saline Flush] Med 07/30/19 12:23 Active 10 ml FLUSH ASDIRECTED PRN Sodium Chloride 0.9% [Saline Flush] Med 07/30/19 12:23 Active 2.5 ml FLUSH ASDIRECTED PRN Saline Lock Insert [OM.PC] Stat Oth 07/30/19 12:23 Ordered Medication Orders Sodium Chloride (Normal Saline) 500 mls @ 999 mls/hr IV STAT [facility] Last Admin: 07/30/19 13:57 Dose: 999 mls/hr Sodium Chloride (Saline Flush) 10 ml FLUSH ASDIRECTED PRN PRN Reason: Keep Vein Open Sodium Chloride (Saline Flush) 2.5 ml FLUSH ASDIRECTED PRN PRN Reason: Keep Vein Open Labs: Laboratory Tests 07/30/19 07/30/19 07/30/19 Range/Units 12:28 12:28 12:28 WBC 8.77 (4.0-11.0) K/uL RBC 4.67 (4.30-5.90) M/uL Hgb 13.7 (12.0-16.0) g/dL Hct 41.8 (36.0-46.0) % MCV 89.5 (80.0-98.0) fL MCH 29.3 (27.0-32.0) pg MCHC 32.8 (31.0-37.0) g/dL RDW Std Deviation 48.9 (28.0-62.0) fl RDW Coeff of Danisha 15 (11.0-15.0) % Plt Count 245 (150-400) K/uL MPV 10.90 (7.40-12.00) fL Neut % (Auto) 80.2 H (48.0-80.0) % Lymph % (Auto) 11.9 L (16.0-40.0) % [place] % (Auto) 6.6 (0.0-15.0) % Eos % (Auto) 0.8 (0.0-7.0) % Baso % (Auto) 0.5 (0.0-1.5) % Neut # (Auto) 7.0 H (1.4-5.7) K/uL Lymph # (Auto) 1.0 (0.6-2.4) K/uL [place] # (Auto) 0.6 (0.0-0.8) K/uL Eos # (Auto) 0.1 (0.0-0.7) K/uL Baso # (Auto) 0.0 (0.0-0.1) K/uL INR 1.02 Sodium 141 (136-145) mmol/L Potassium 4.1 (3.5-5.1) mmol/L Chloride 102 (98-107) mmol/L Carbon Dioxide 30.2 (21.0-32.0) mmol/L BUN 27 H (7.0-18.0) mg/dL Creatinine 1.1 H (0.6-1.0) mg/dL Est Cr Clr Drug Dosing 33.92 mL/min Estimated GFR (MDRD) 48.7 ml/min Glucose 96 (74-106) mg/dL Calcium 10.0 (8.5-10.1) mg/dL Magnesium 2.0 (1.8-2.4) mg/dL Total Bilirubin 0.3 (0.2-1.0) mg/dL AST 28 (15-37) IU/L ALT 25 (14-63) IU/L Alkaline Phosphatase 113 (46-116) U/L Troponin I < 0.050 (0.000-0.056) ng/mL Total Protein 8.7 H (6.4-8.2) g/dL Albumin 4.0 (3.4-5.0) g/dL Globulin 4.7 H (2.6-4.0) g/dL Albumin/Globulin Ratio 0.9 (0.9-1.6) Urine Color Urine Appearance Urine pH (5.0-8.0) Ur Specific [place] (1.001-1.035) Urine Protein (NEGATIVE) mg/dL Urine Glucose (UA) (NEGATIVE) mg/dL Urine Ketones (NEGATIVE) mg/dL Urine Occult Blood (NEGATIVE) Urine Nitrite (NEGATIVE) Urine Bilirubin (NEGATIVE) Urine Urobilinogen (<2.0) EU/dL Ur Leukocyte Esterase (NEGATIVE) Urine RBC (0-2/HPF) Urine WBC (0-5/HPF) Ur Epithelial Cells (NONE-FEW) Urine Bacteria (NEGATIVE) Hyaline Casts (0-2/LPF) 07/30/19 Range/Units 14:25 WBC (4.0-11.0) K/uL RBC (4.30-5.90) M/uL Hgb (12.0-16.0) g/dL Hct (36.0-46.0) % MCV (80.0-98.0) fL MCH (27.0-32.0) pg MCHC (31.0-37.0) g/dL RDW Std Deviation (28.0-62.0) fl RDW Coeff of Danisha (11.0-15.0) % Plt Count (150-400) K/uL MPV (7.40-12.00) fL Neut % (Auto) (48.0-80.0) % Lymph % (Auto) (16.0-40.0) % [place] % (Auto) (0.0-15.0) % Eos % (Auto) (0.0-7.0) % Baso % (Auto) (0.0-1.5) % Neut # (Auto) (1.4-5.7) K/uL Lymph # (Auto) (0.6-2.4) K/uL [place] # (Auto) (0.0-0.8) K/uL Eos # (Auto) (0.0-0.7) K/uL Baso # (Auto) (0.0-0.1) K/uL INR Sodium (136-145) mmol/L Potassium (3.5-5.1) mmol/L Chloride (98-107) mmol/L Carbon Dioxide (21.0-32.0) mmol/L BUN (7.0-18.0) mg/dL Creatinine (0.6-1.0) mg/dL Est Cr Clr Drug Dosing mL/min Estimated GFR (MDRD) ml/min Glucose (74-106) mg/dL Calcium (8.5-10.1) mg/dL Magnesium (1.8-2.4) mg/dL Total Bilirubin (0.2-1.0) mg/dL AST (15-37) IU/L ALT (14-63) IU/L Alkaline Phosphatase (46-116) U/L Troponin I (0.000-0.056) ng/mL Total Protein (6.4-8.2) g/dL Albumin (3.4-5.0) g/dL Globulin (2.6-4.0) g/dL Albumin/Globulin Ratio (0.9-1.6) Urine Color YELLOW Urine Appearance SLT CLOUDY Urine pH 5.5 (5.0-8.0) Ur Specific [place] >= 1.030 (1.001-1.035) Urine Protein TRACE H (NEGATIVE) mg/dL Urine Glucose (UA) NEGATIVE (NEGATIVE) mg/dL Urine Ketones NEGATIVE (NEGATIVE) mg/dL Urine Occult Blood NEGATIVE (NEGATIVE) Urine Nitrite NEGATIVE (NEGATIVE) Urine Bilirubin NEGATIVE (NEGATIVE) Urine Urobilinogen 0.2 (<2.0) EU/dL Ur Leukocyte Esterase NEGATIVE (NEGATIVE) Urine RBC 0-2 (0-2/HPF) Urine WBC 1-3 (0-5/HPF) Ur Epithelial Cells OCCASIONAL (NONE-FEW) Urine Bacteria RARE (NEGATIVE) Hyaline Casts 10-15 (0-2/LPF) Meds: Medications Generic Name Dose Route Start Last Admin Trade Name Freq PRN Reason Stop Dose Admin Sodium Chloride 500 mls @ 999 mls/hr 07/30/19 13:15 07/30/19 13:57 Normal Saline IV 999 mls/hr STAT ELAINE Administration Sodium Chloride 10 ml 07/30/19 12:23 Saline Flush FLUSH ASDIRECTED PRN Keep Vein Open Sodium Chloride 2.5 ml 07/30/19 12:23 Saline Flush FLUSH ASDIRECTED PRN Keep Vein Open Departure - Departure Time of Disposition: 15:12 Disposition: Refer to Observation Condition: Good Clinical Impression: Dehydration, Status post fall - Discharge Information Referrals: Chalino Servin MD [Primary Care Provider] - Forms: ED Department Discharge Sepsis Event Note - Evaluation Sepsis Screening Result: No Definite Risk - Focused Exam Vital Signs: Vital Signs Temp Pulse Resp BP Pulse Ox 07/30/19 12:16 97.8 F 87 18 122/84 96 Date Exam was Performed: 07/30/19 Time Exam was Performed: 15:11 - My Orders Last 24 Hours: My Active Orders 07/30/19 12:23 EKG Documentation Completion [RC] STAT Sodium Chloride 0.9% [Saline Flush] 10 ml FLUSH ASDIRECTED PRN Sodium Chloride 0.9% [Saline Flush] 2.5 ml FLUSH ASDIRECTED PRN Saline Lock Insert [OM.PC] Stat 07/30/19 13:15 Sodium Chloride 0.9% [Normal Saline] 500 ml IV STAT 07/30/19 13:44 Orthostatic Vital Signs [RC] ASDIRECTED - Assessment/Plan Last 24 Hours: My Active Orders 07/30/19 12:23 EKG Documentation Completion [RC] STAT Sodium Chloride 0.9% [Saline Flush] 10 ml FLUSH ASDIRECTED PRN Sodium Chloride 0.9% [Saline Flush] 2.5 ml FLUSH ASDIRECTED PRN Saline Lock Insert [OM.PC] Stat 07/30/19 13:15 Sodium Chloride 0.9% [Normal Saline] 500 ml IV STAT 07/30/19 13:44 Orthostatic Vital Signs [RC] ASDIRECTED
[2019-07-30] MEDS ORDERED: Sodium Chloride 0.9% 500 ML IV SCH (13:15)
--- NOTE | 2019-07-30 13:18 | CR ---
Chest: Portable view of the chest was obtained. Comparison: Prior chest x-ray of 06/15/19. Findings: Heart size is normal. Aorta appears to be slightly aneurysmal which is stable. Emphysematous changes are noted. Parenchymal density is noted within the right upper lung which is stable most likely representing scarring. Slight increased lung markings are noted also stable compatible with chronic change. No acute parenchymal findings are believed to be present. Plate and screws affix an old humeral fracture on the left side. Scoliosis is noted within the spine. Impression: 1. Emphysematous change and other chronic findings as noted above. 2. Nothing acute is definitely appreciated. Diagnostic code #3 This report was dictated in [place] Standard Time
[2019-07-30 13:32] LABS: BLOOD UREA NITROGEN,BUN 27 mg/dL (7.0-18.0); CARBON DIOXIDE,CO2 30.2 mmol/L (21.0-32.0); CHLORIDE,CL 102 mmol/L (98-107); GLUCOSE RANDOM 96 mg/dL (74-106); POTASSIUM,K 4.1 mmol/L (3.5-5.1); SODIUM,NA 141 mmol/L (136-145)
[2019-07-30] MEDS: Sodium Chloride 0.9% 1,000 ML IV ONE ×2 (15:23→16:31)
--- NOTE | 2019-07-30 17:01 | PCM.HP.2 ---
<Guero Mckeon - Last Filed: 07/30/19 19:27> H&P History of Present Illness - General Date of Service: 07/30/19 Admit Problem/Dx: Admission Diagnosis/Problem Admission Diagnosis/Problem Dehydration Source of Information: Patient History Limitations: Reports: No Limitations - History of Present Illness Initial Comments - Free Text/Narative: Patient is a 73-year-old female with no significant past medical history presenting with a presyncopal episode while at home. Patient was at her house making pancakes when she spontaneously felt weak and dizzy, without vertigo, and almost fell down. States she used furniture around her to keep her self up. However developed another episode and had fallen down onto her backside. Patient denies any loss of consciousness and or trauma to the head. States she stood up finished making the pancakes and fed her neighbors. Told granddaughter the story of situation; after which they both proceeded to the emergency department. ER course: head CT negative for acute intracranial bleed. Chest x-ray: No acute changes/emphysema type changes. Received 1 bolus of fluid/ns Patient endorsing no symptoms. Bedside: Patient states she is feeling better. Denies any new chest pain, shortness of breath, dizziness. - Related Data Allergies/Adverse Reactions: Allergies Allergy/AdvReac Type Severity Reaction Status Date / Time adhesive tape Allergy Swelling Verified 07/30/19 16:24 Home Medications: Home Meds Calcium Carbonate [Calcium] 1,000 mg PO DAILY 08/18/17 [History] Cholecalciferol (Vitamin D3) [Vitamin D] 5,000 unit PO DAILY 08/18/17 [History] Thiamine HCl [Vitamin B-1] 07/30/19 [History] Past Medical History HEENT History: Reports: Impaired Vision Other HEENT History: dentures top and bottom Cardiovascular History: Reports: None Respiratory History: Reports: COPD Gastrointestinal History: Reports: Bowel Obstruction Other Gastrointestinal History: 2013: required 2 ex laps. Peritonitis. Sepsis sydrome with shock. Prolonged ICU stay. Dr. Jin was the surgeon. Genitourinary History: Reports: None [employer] History: Reports: Polycystic Ovaries Musculoskeletal History: Reports: Fracture, Other (See Below) Other Musculoskeletal History: fractured arm age 2 Neurological History: Reports: None Psychiatric History: Reports: Depression Endocrine/Metabolic History: Reports: None Hematologic History: Reports: Anemia, Blood Transfusion(s) Oncologic (Cancer) History: Reports: Lung, Other (See Below) Other Oncologic History: possible uterine or ovarian CA at age 21 - Infectious Disease History Infectious Disease History: Reports: MRSA Other Infectious Disease History: Client denies history of C. Diff or MRSA - Past Surgical History Respiratory Surgical History: Reports: Lung Biopsies, Lung Resection Other Respiratory Surgeries/Procedures: left lobectomy; mass removed from right ; hx of lung CA GI Surgical History: Reports: Appendectomy, Cholecystectomy, Colonoscopy, Other (See Below) Female Surgical History: Reports: Hysterectomy Social & Family History - Family History Family Medical History: Noncontributory HEENT: Reports: None Cardiac: Reports: None Respiratory: Reports: None Endocrine/Metabolic: Reports: Diabetes, type II Oncologic: Reports: Breast, Liver, Lung - Tobacco Use Smoking Status *Q: Current Every Day Smoker Years of Tobacco use: 55 Packs/Tins Daily: 6 Used Tobacco, but Quit: No Second Hand Smoke Exposure: No - Caffeine Use Caffeine Use: Reports: Coffee, Soda - Recreational Drug Use Recreational Drug Use: No - Living Situation & Occupation Living situation: Reports: , Other (grand-daughter helps with cares.) Occupation: Retired H&P Review of Systems - Review of Systems: Review Of Systems: See Below General: Denies: Fever, Chills, Fatigue HEENT: Denies: Sinus Congestion, Sore Throat Pulmonary: Reports: Cough. Denies: Shortness of Breath, Wheezing, Pleuritic Chest Pain, Sputum Cardiovascular: Denies: Chest Pain, Palpitations, Dyspnea on Exertion, Edema Gastrointestinal: Denies: Abdominal Pain, Constipation, Diarrhea Genitourinary: Denies: Dysuria, Frequency, Burning, Pain, Urgency, Incontinence Musculoskeletal: Reports: No Symptoms Skin: Reports: Bruising Psychiatric: Reports: No Symptoms. Denies: Confusion, Depression, Anxiety, Agitation Neurological: Denies: Confusion, Dizziness, Headache, Numbness, Paresthesia, Pre -Existing Deficit Exam - Exam Exam: See Below - Vital Signs Vital Signs: Last Vital Signs Temp 97.3 F 07/30/19 16:00 Pulse 85 07/30/19 16:00 Resp 16 07/30/19 16:00 BP 172/81 H 07/30/19 16:00 Pulse Ox 96 07/30/19 12:16 Orthostatic Blood Pressure [ 111/72 Standing] Orthostatic Blood Pressure [ 107/64 Sitting] Orthostatic Blood Pressure [ 130/77 Supine] Weight: 46.357 kg - Exam General: Alert, Oriented, Cooperative HEENT: EOMI, Hearing Intact, Mucosa Moist & [place] Neck: Supple, Trachea Midline Lungs: Clear to Auscultation, Normal Respiratory Effort Cardiovascular: Regular Rate, Regular Rhythm GI/Abdominal Exam: Soft, Non-Tender Extremities: Normal Range of Motion, Non-Tender, Other (ecchymosis over left lateral elbow; FROM of elbow; no tenderness over joints of upper extremities. joints stable) Skin: Warm, Dry Neurological: Cranial Nerves Intact Neuro Extensive - Mental Status: Alert, Oriented x3, Normal Mood/Affect Neuro Extensive - Motor, Sensory, Reflexes: CN II-XII Intact Psychiatric: Alert, Normal Affect, Normal Mood - Patient Data Lab Results Last 24 hrs: Laboratory Results - last 24 hr 07/30/19 07/30/19 07/30/19 Range/Units 12:28 12:28 12:28 WBC 8.77 (4.0-11.0) K/uL RBC 4.67 (4.30-5.90) M/uL Hgb 13.7 (12.0-16.0) g/dL Hct 41.8 (36.0-46.0) % MCV 89.5 (80.0-98.0) fL MCH 29.3 (27.0-32.0) pg MCHC 32.8 (31.0-37.0) g/dL RDW Std Deviation 48.9 (28.0-62.0) fl RDW Coeff of Danisha 15 (11.0-15.0) % Plt Count 245 (150-400) K/uL MPV 10.90 (7.40-12.00) fL Neut % (Auto) 80.2 H (48.0-80.0) % Lymph % (Auto) 11.9 L (16.0-40.0) % [place] % (Auto) 6.6 (0.0-15.0) % Eos % (Auto) 0.8 (0.0-7.0) % Baso % (Auto) 0.5 (0.0-1.5) % Neut # (Auto) 7.0 H (1.4-5.7) K/uL Lymph # (Auto) 1.0 (0.6-2.4) K/uL [place] # (Auto) 0.6 (0.0-0.8) K/uL Eos # (Auto) 0.1 (0.0-0.7) K/uL Baso # (Auto) 0.0 (0.0-0.1) K/uL INR 1.02 Sodium 141 (136-145) mmol/L Potassium 4.1 (3.5-5.1) mmol/L Chloride 102 (98-107) mmol/L Carbon Dioxide 30.2 (21.0-32.0) mmol/L BUN 27 H (7.0-18.0) mg/dL Creatinine 1.1 H (0.6-1.0) mg/dL Est Cr Clr Drug Dosing 33.92 mL/min Estimated GFR (MDRD) 48.7 ml/min Glucose 96 (74-106) mg/dL Calcium 10.0 (8.5-10.1) mg/dL Magnesium 2.0 (1.8-2.4) mg/dL Total Bilirubin 0.3 (0.2-1.0) mg/dL AST 28 (15-37) IU/L ALT 25 (14-63) IU/L Alkaline Phosphatase 113 (46-116) U/L Troponin I < 0.050 (0.000-0.056) ng/mL Total Protein 8.7 H (6.4-8.2) g/dL Albumin 4.0 (3.4-5.0) g/dL Globulin 4.7 H (2.6-4.0) g/dL Albumin/Globulin Ratio 0.9 (0.9-1.6) Urine Color Urine Appearance Urine pH (5.0-8.0) Ur Specific [place] (1.001-1.035) Urine Protein (NEGATIVE) mg/dL Urine Glucose (UA) (NEGATIVE) mg/dL Urine Ketones (NEGATIVE) mg/dL Urine Occult Blood (NEGATIVE) Urine Nitrite (NEGATIVE) Urine Bilirubin (NEGATIVE) Urine Urobilinogen (<2.0) EU/dL Ur Leukocyte Esterase (NEGATIVE) Urine RBC (0-2/HPF) Urine WBC (0-5/HPF) Ur Epithelial Cells (NONE-FEW) Urine Bacteria (NEGATIVE) Hyaline Casts (0-2/LPF) 01/11/20 Range/Units 14:25 WBC (4.0-11.0) K/uL RBC (4.30-5.90) M/uL Hgb (12.0-16.0) g/dL Hct (36.0-46.0) % MCV (80.0-98.0) fL MCH (27.0-32.0) pg MCHC (31.0-37.0) g/dL RDW Std Deviation (28.0-62.0) fl RDW Coeff of Danisha (11.0-15.0) % Plt Count (150-400) K/uL MPV (7.40-12.00) fL Neut % (Auto) (48.0-80.0) % Lymph % (Auto) (16.0-40.0) % [place] % (Auto) (0.0-15.0) % Eos % (Auto) (0.0-7.0) % Baso % (Auto) (0.0-1.5) % Neut # (Auto) (1.4-5.7) K/uL Lymph # (Auto) (0.6-2.4) K/uL [place] # (Auto) (0.0-0.8) K/uL Eos # (Auto) (0.0-0.7) K/uL Baso # (Auto) (0.0-0.1) K/uL INR Sodium (136-145) mmol/L Potassium (3.5-5.1) mmol/L Chloride (98-107) mmol/L Carbon Dioxide (21.0-32.0) mmol/L BUN (7.0-18.0) mg/dL Creatinine (0.6-1.0) mg/dL Est Cr Clr Drug Dosing mL/min Estimated GFR (MDRD) ml/min Glucose (74-106) mg/dL Calcium (8.5-10.1) mg/dL Magnesium (1.8-2.4) mg/dL Total Bilirubin (0.2-1.0) mg/dL AST (15-37) IU/L ALT (14-63) IU/L Alkaline Phosphatase (46-116) U/L Troponin I (0.000-0.056) ng/mL Total Protein (6.4-8.2) g/dL Albumin (3.4-5.0) g/dL Globulin (2.6-4.0) g/dL Albumin/Globulin Ratio (0.9-1.6) Urine Color YELLOW Urine Appearance SLT CLOUDY Urine pH 5.5 (5.0-8.0) Ur Specific [place] >= 1.030 (1.001-1.035) Urine Protein TRACE H (NEGATIVE) mg/dL Urine Glucose (UA) NEGATIVE (NEGATIVE) mg/dL Urine Ketones NEGATIVE (NEGATIVE) mg/dL Urine Occult Blood NEGATIVE (NEGATIVE) Urine Nitrite NEGATIVE (NEGATIVE) Urine Bilirubin NEGATIVE (NEGATIVE) Urine Urobilinogen 0.2 (<2.0) EU/dL Ur Leukocyte Esterase NEGATIVE (NEGATIVE) Urine RBC 0-2 (0-2/HPF) Urine WBC 1-3 (0-5/HPF) Ur Epithelial Cells OCCASIONAL (NONE-FEW) Urine Bacteria RARE (NEGATIVE) Hyaline Casts 10-15 (0-2/LPF) Result Diagrams: 07/30/19 12:28 07/30/19 12:28 [place] Results Last 24 hrs: Microbiology 07/30/19 12:28 Influenza Type A Antigen Screen - Final Nasopharyngeal Swab NEGATIVE INFLUENZA A VIRUS AG REFERENCE RANGE: NEGATIVE Influenza Type B Antigen Screen - Final NEGATIVE INFLUENZA B VIRUS AG REFERENCE RANGE: NEGATIVE Sepsis Event Note - Evaluation Sepsis Screening Result: No Definite Risk - Focused Exam Vital Signs: Vital Signs Temp Pulse Resp BP Pulse Ox 07/30/19 16:00 97.3 F 85 16 172/81 H 07/30/19 12:16 97.8 F 87 18 122/84 96 Date Exam was Performed: 07/30/19 Time Exam was Performed: 19:27 Problem List Initiated/Reviewed/Updated: Yes Orders Last 24hrs: Active Orders 24 hr Category Date Time Status Admission Status [Patient Status] [ADT] Stat ADT 07/30/19 15:13 Active Orthostatic Vital Signs [RC] ASDIRECTED Care 07/30/19 13:44 Active Up With Assistance [RC] ASDIRECTED Care 07/30/19 16:58 Ordered Heart Healthy Diet [DIET] Diet 07/31/19 Breakfast Ordered Head wo Cont [CT] Urgent Exams 07/30/19 16:37 Ordered Heparin Sodium Med 07/30/19 17:00 Ordered 5,000 units IVPUSH Q8H Pantoprazole [ProTONIX] Med 07/30/19 17:00 Ordered 40 mg PO DAILY Sodium Chloride 0.9% [Normal Saline] 1,000 ml Med 07/30/19 15:11 Active IV STAT Sodium Chloride 0.9% [Normal Saline] 500 ml Med 07/30/19 13:15 Active IV STAT Sodium Chloride 0.9% [Saline Flush] Med 07/30/19 12:23 Active 10 ml FLUSH ASDIRECTED PRN Sodium Chloride 0.9% [Saline Flush] Med 07/30/19 12:23 Active 2.5 ml FLUSH ASDIRECTED PRN Saline Lock Insert [OM.PC] Stat Oth 07/30/19 12:23 Ordered Code Status [Resuscitation Status] Routine Resus Stat 07/30/19 16:57 Ordered Medication Orders Heparin Sodium (Porcine) (Heparin Sodium) 5,000 units IVPUSH Q8H [facility] Sodium Chloride (Normal Saline) 500 mls @ 999 mls/hr IV STAT ELAINE Last Admin: 07/30/19 13:57 Dose: 999 mls/hr Sodium Chloride (Normal Saline) 1,000 mls @ 125 mls/hr IV STAT ONE Stop: 07/30/19 23:10 Last Admin: 07/30/19 16:31 Dose: 125 mls/hr Infusion: 07/30/19 16:31 Dose: 125 mls/hr Admin: 07/30/19 15:23 Dose: 125 mls/hr Pantoprazole Sodium (Protonix) 40 mg PO DAILY [facility] Sodium Chloride (Saline Flush) 10 ml FLUSH ASDIRECTED PRN PRN Reason: Keep Vein Open Sodium Chloride (Saline Flush) 2.5 ml FLUSH ASDIRECTED PRN PRN Reason: Keep Vein Open Assessment/Plan Comment:: Assessment 1. Presyncopal episode :no head trauma 2. Tobacco abuse 3. Left elbow contusion Plan Admit to observation. Full code. Activity: Up with assistance. Diet: Heart healthy. GI prophylaxis: Pantoprazole 40. DVT prophylaxis; heparin 1. Continue to monitor patient on telemetry. Will order head CT scan to rule out any intracranial abnormalities. Head CT: negative 2. Continue to monitor : Carotid doppler, echo and telemetry. 3. Recheck labs in AM 4. UA: + for hyaline casts and rare bacteria; most likely fluid down; can consider CTX for UTI; no clinical symptoms however. 5. Left elbow: ecchymosis noted; however no tenderness, FROM ; pt. not complaining of pain and or dysfunction; continue to monitor; low suspicion for fx. (no elbow, wrist and or shoulder pain either) 5. pt. understood plan. <Isael Baker - Last Filed: 08/01/19 20:52> H&P History of Present Illness - General Admit Problem/Dx: Admission Diagnosis/Problem Admission Diagnosis/Problem Dehydration Exam - Vital Signs Vital Signs: Last Vital Signs Temp 36.4 C 07/31/19 11:00 Pulse 76 07/31/19 11:00 Resp 16 07/31/19 11:00 BP 133/70 07/31/19 11:00 Pulse Ox 98 07/31/19 11:00 Orthostatic Blood Pressure [ 111/72 Standing] Orthostatic Blood Pressure [ 107/64 Sitting] Orthostatic Blood Pressure [ 130/77 Supine] - Patient Data Result Diagrams: 07/31/19 06:15 07/31/19 06:15 Assessment/Plan Comment:: I performed a history and physical exam of the patient and discussed management with resident. I have reviewed the residents note and agree with documented findings and plan unless otherwise specified in my note.
--- NOTE | 2019-07-30 17:25 | CT ---
Head CT Technique: Multiple axial sections through the brain were obtained. Intravenous contrast was not utilized. Comparison: Previous head CT exam of to. Findings: Ventricles along with basal cisterns and sulci over the convexities are mildly prominent. Minimal areas of diminished density is noted within the periventricular white matter compatible with slight small vessel ischemic demyelination change. No other abnormal parenchymal densities are seen. No evidence of intracranial hemorrhage. No midline shift or mass effect is seen. Bone window settings were reviewed. Visualized mastoid sinuses show nothing acute. Visualized paranasal sinuses show nothing acute. No acute calvarial abnormality is appreciated. Impression: 1. Mild senescent change. 2. No acute intracranial abnormality is appreciated. Diagnostic code #2 This report was dictated in [place] Standard Time
[2019-07-30] MEDS: Heparin Sodium 5,000 Units/ML Vial IVPUSH SCH ×2 (17:52→17:58)
[2019-07-30] MEDS: Pantoprazole 40 MG Tab.CR PO SCH (17:52)
[2019-07-30] MEDS ORDERED: Acetaminophen 325 MG Tab PO ONE (23:36)
[2019-07-31 06:54] LABS: BLOOD UREA NITROGEN,BUN 22 mg/dL (7.0-18.0); CARBON DIOXIDE,CO2 28.2 mmol/L (21.0-32.0); CHLORIDE,CL 107 mmol/L (98-107); GLUCOSE RANDOM 90 mg/dL (74-106); POTASSIUM,K 3.5 mmol/L (3.5-5.1); SODIUM,NA 144 mmol/L (136-145)
[2019-07-31] MEDS: Heparin Sodium 5,000 Units/ML Vial IVPUSH SCH ×2 (08:28)
[2019-07-31] MEDS: Pantoprazole 40 MG Tab.CR PO SCH (08:28)
[2019-07-31] MEDS ORDERED: Acetaminophen 325 MG Tab PO ONE (09:54)
[2019-07-31 11:26] VITALS: BP 133/70; PULSE 76
--- NOTE | 2019-07-31 12:19 | PCM.DCSUM1 ---
Discharge Summary - Hospital Course Free Text/Narrative:: Patient is a 73-year-old female with no significant past medical history presenting with a presyncopal episode while at home. Patient was at her house making pancakes when she spontaneously felt weak and dizzy, without vertigo, and almost fell down. States she used furniture around her to keep her self up. However developed another episode and had fallen down onto her backside. Patient denies any loss of consciousness and or trauma to the head. States she stood up finished making the pancakes and fed her neighbors. Told granddaughter the story of situation; after which they both proceeded to the emergency department. In the ER EKG was normal, labs were normal, B was WNL. Patients granddaughter didn't feel comfortable to take patient home given her pre-syncopal symptoms as she reportedly lives alone, so patient was admitted for observation overnight for pre-syncope.Troponin were neagtive, telemetry overnight was uneventful. Patient was hemodynamically stable fo rd/c next day and asked to f/u with PCP upon d/c Diagnosis: Stroke: No - Discharge Data Discharge Date: 07/31/19 Discharge Disposition: Home, Self-Care 01 Condition: Stable - Referral to Home Health Primary Care Physician: Chalino Servin MD - Patient Instructions Diet: Regular Diet as Tolerated Driving: May Drive Today Showering/Bathing: May Shower Notify Provider of: Fever, Increased Pain, Swelling and Redness, Drainage, Nausea and/or Vomiting - Discharge Plan *PRESCRIPTION DRUG MONITORING PROGRAM REVIEWED*: Not Applicable *COPY OF PRESCRIPTION DRUG MONITORING REPORT IN PATIENT ROLF: Not Applicable Home Medications: Home Meds Calcium Carbonate [Calcium] 1,000 mg PO DAILY 08/18/17 [History] Cholecalciferol (Vitamin D3) [Vitamin D] 5,000 unit PO DAILY 08/18/17 [History] Thiamine HCl [Vitamin B-1] 07/30/19 [History] Oxygen Therapy Mode: Room Air Patient Handouts: Near-Syncope, [id number] Referrals: Chalino Servin MD [Primary Care Provider] - (Call on Thursday to make a hospital follow-up appointment, for about 1-2 weeks. This was not done for you, due to it being the weekend. ) - Discharge Summary/Plan Comment DC Time >30 min.: No - Patient Data Vitals - Most Recent: Last Vital Signs Temp 36.4 C 07/31/19 11:00 Pulse 76 07/31/19 11:00 Resp 16 07/31/19 11:00 BP 133/70 07/31/19 11:00 Pulse Ox 98 07/31/19 11:00 Orthostatic Blood Pressure [ 111/72 Standing] Orthostatic Blood Pressure [ 107/64 Sitting] Orthostatic Blood Pressure [ 130/77 Supine] Weight - Most Recent: 46.357 kg I&O - Last 24 hours: Intake & Output 07/30/19 07/31/19 07/31/19 22:59 06:59 14:59 Intake Total 1760 236 Output Total 1600 Balance 160 236 Lab Results - Last 24 hrs: Laboratory Results - last 24 hr 07/30/19 07/30/19 07/30/19 Range/Units 12:28 12:28 12:28 WBC 8.77 (4.0-11.0) K/uL RBC 4.67 (4.30-5.90) M/uL Hgb 13.7 (12.0-16.0) g/dL Hct 41.8 (36.0-46.0) % MCV 89.5 (80.0-98.0) fL MCH 29.3 (27.0-32.0) pg MCHC 32.8 (31.0-37.0) g/dL RDW Std Deviation 48.9 (28.0-62.0) fl RDW Coeff of Danisha 15 (11.0-15.0) % Plt Count 245 (150-400) K/uL MPV 10.90 (7.40-12.00) fL Neut % (Auto) 80.2 H (48.0-80.0) % Lymph % (Auto) 11.9 L (16.0-40.0) % [place] % (Auto) 6.6 (0.0-15.0) % Eos % (Auto) 0.8 (0.0-7.0) % Baso % (Auto) 0.5 (0.0-1.5) % Neut # (Auto) 7.0 H (1.4-5.7) K/uL Lymph # (Auto) 1.0 (0.6-2.4) K/uL [place] # (Auto) 0.6 (0.0-0.8) K/uL Eos # (Auto) 0.1 (0.0-0.7) K/uL Baso # (Auto) 0.0 (0.0-0.1) K/uL INR 1.02 Sodium 141 (136-145) mmol/L Potassium 4.1 (3.5-5.1) mmol/L Chloride 102 (98-107) mmol/L Carbon Dioxide 30.2 (21.0-32.0) mmol/L BUN 27 H (7.0-18.0) mg/dL Creatinine 1.1 H (0.6-1.0) mg/dL Est Cr Clr Drug Dosing 33.92 mL/min Estimated GFR (MDRD) 48.7 ml/min Glucose 96 (74-106) mg/dL Calcium 10.0 (8.5-10.1) mg/dL Magnesium 2.0 (1.8-2.4) mg/dL Total Bilirubin 0.3 (0.2-1.0) mg/dL AST 28 (15-37) IU/L ALT 25 (14-63) IU/L Alkaline Phosphatase 113 (46-116) U/L Troponin I < 0.050 (0.000-0.056) ng/mL Total Protein 8.7 H (6.4-8.2) g/dL Albumin 4.0 (3.4-5.0) g/dL Globulin 4.7 H (2.6-4.0) g/dL Albumin/Globulin Ratio 0.9 (0.9-1.6) Urine Color Urine Appearance Urine pH (5.0-8.0) Ur Specific [place] (1.001-1.035) Urine Protein (NEGATIVE) mg/dL Urine Glucose (UA) (NEGATIVE) mg/dL Urine Ketones (NEGATIVE) mg/dL Urine Occult Blood (NEGATIVE) Urine Nitrite (NEGATIVE) Urine Bilirubin (NEGATIVE) Urine Urobilinogen (<2.0) EU/dL Ur Leukocyte Esterase (NEGATIVE) Urine RBC (0-2/HPF) Urine WBC (0-5/HPF) Ur Epithelial Cells (NONE-FEW) Urine Bacteria (NEGATIVE) Hyaline Casts (0-2/LPF) 07/30/19 07/31/19 07/31/19 Range/Units 14:25 06:15 06:15 WBC 5.64 (4.0-11.0) K/uL RBC 3.74 L (4.30-5.90) M/uL Hgb 11.1 L (12.0-16.0) g/dL Hct 33.3 L (36.0-46.0) % MCV 89.0 (80.0-98.0) fL MCH 29.7 (27.0-32.0) pg MCHC 33.3 (31.0-37.0) g/dL RDW Std Deviation 47.0 (28.0-62.0) fl RDW Coeff of [place] 15 (11.0-15.0) % Plt Count 213 (150-400) K/uL MPV 11.20 (7.40-12.00) fL Neut % (Auto) 55.4 (48.0-80.0) % Lymph % (Auto) 30.1 (16.0-40.0) % [place] % (Auto) 9.0 (0.0-15.0) % Eos % (Auto) 4.6 (0.0-7.0) % Baso % (Auto) 0.9 (0.0-1.5) % Neut # (Auto) 3.1 (1.4-5.7) K/uL Lymph # (Auto) 1.7 (0.6-2.4) K/uL [place] # (Auto) 0.5 (0.0-0.8) K/uL Eos # (Auto) 0.3 (0.0-0.7) K/uL Baso # (Auto) 0.1 (0.0-0.1) K/uL INR Sodium 144 (136-145) mmol/L Potassium 3.5 (3.5-5.1) mmol/L Chloride 107 (98-107) mmol/L Carbon Dioxide 28.2 (21.0-32.0) mmol/L BUN 22 H (7.0-18.0) mg/dL Creatinine 0.8 (0.6-1.0) mg/dL Est Cr Clr Drug Dosing 45.83 mL/min Estimated GFR (MDRD) > 60.0 ml/min Glucose 90 (74-106) mg/dL Calcium 8.2 L (8.5-10.1) mg/dL Magnesium (1.8-2.4) mg/dL Total Bilirubin 0.3 (0.2-1.0) mg/dL AST 21 (15-37) IU/L ALT 20 (14-63) IU/L Alkaline Phosphatase 84 (46-116) U/L Troponin I (0.000-0.056) ng/mL Total Protein 6.5 (6.4-8.2) g/dL Albumin 2.9 L (3.4-5.0) g/dL Globulin 3.6 (2.6-4.0) g/dL Albumin/Globulin Ratio 0.8 L (0.9-1.6) Urine Color YELLOW Urine Appearance SLT CLOUDY Urine pH 5.5 (5.0-8.0) Ur Specific [place] >= 1.030 (1.001-1.035) Urine Protein TRACE H (NEGATIVE) mg/dL Urine Glucose (UA) NEGATIVE (NEGATIVE) mg/dL Urine Ketones NEGATIVE (NEGATIVE) mg/dL Urine Occult Blood NEGATIVE (NEGATIVE) Urine Nitrite NEGATIVE (NEGATIVE) Urine Bilirubin NEGATIVE (NEGATIVE) Urine Urobilinogen 0.2 (<2.0) EU/dL Ur Leukocyte Esterase NEGATIVE (NEGATIVE) Urine RBC 0-2 (0-2/HPF) Urine WBC 1-3 (0-5/HPF) Ur Epithelial Cells OCCASIONAL (NONE-FEW) Urine Bacteria RARE (NEGATIVE) Hyaline Casts 10-15 (0-2/LPF) NENA Results - Last 24 hrs: Microbiology 07/30/19 12:28 Influenza Type A Antigen Screen - Final Nasopharyngeal Swab NEGATIVE INFLUENZA A VIRUS AG REFERENCE RANGE: NEGATIVE Influenza Type B Antigen Screen - Final NEGATIVE INFLUENZA B VIRUS AG REFERENCE RANGE: NEGATIVE Med Orders - Current: Current Medications Heparin Sodium (Porcine) (Heparin Sodium) 5,000 units IVPUSH Q8H [facility] Last Admin: 07/31/19 08:28 Dose: 5,000 units Sodium Chloride (Normal Saline) 500 mls @ 999 mls/hr IV STAT [facility] Last Admin: 07/30/19 13:57 Dose: 999 mls/hr Pantoprazole Sodium (Protonix) 40 mg PO DAILY [facility] Last Admin: 07/31/19 08:28 Dose: 40 mg Sodium Chloride (Saline Flush) 10 ml FLUSH ASDIRECTED PRN PRN Reason: Keep Vein Open Sodium Chloride (Saline Flush) 2.5 ml FLUSH ASDIRECTED PRN PRN Reason: Keep Vein Open Discontinued Medications Acetaminophen (Tylenol) 650 mg PO NOW ONE Stop: 07/30/19 23:37 Last Admin: 07/30/19 23:54 Dose: 650 mg Acetaminophen (Tylenol) 650 mg PO NOW ONE Stop: 07/31/19 09:55 Last Admin: 07/31/19 10:06 Dose: 650 mg Sodium Chloride (Normal Saline) 1,000 mls @ 125 mls/hr IV STAT ONE Stop: 07/30/19 23:10 Last Admin: 07/30/19 16:31 Dose: 125 mls/hr
== END 2019-07-31 15:22 | disposition home or self-care (01) ==
LOC: MW.ED 11:55 → MW.MS 15:27
PROVIDERS: ADMIT Student in an Organized Health Care Education/Training Program; ATTEND Student in an Organized Health Care Education/Training Program
DX: R55 Syncope and collapse (principal); E86.0 Dehydration; S50.02XA Contusion of left elbow, initial encounter; J44.9 Chronic obstructive pulmonary disease, unspecified; F17.210 Nicotine dependence, cigarettes, uncomplicated; Z91.048 Other nonmedicinal substance allergy status
CPT/HCPCS: 36415; 70450; 71045; 80053; 81001; 83735; 84484; 85025; 85610; 87804; A9270; J1644; J7030; J7040; 99283

== ENCOUNTER 2020-03-31 13:41 | Emergency (ER) | payer MEDICARE, OTHER ==
[2020-03-31] MEDS ORDERED: Sodium Chloride 0.9% 1,000 ML IV ONE (14:33)
[2020-03-31] MEDS ORDERED: Cephalexin 500 MG Cap PO ONE (14:40)
[2020-03-31] MEDS ORDERED: Sulfamethoxazole/Trimethoprim 800-160 MG Tab PO ONE (14:41)
--- NOTE | 2020-03-31 14:42 | EDM.PDOC ---
ED HPI GENERAL MEDICAL PROBLEM - General Chief Complaint: Skin Complaint Stated Complaint: SORE ON RT FOOT Time Seen by Provider: 03/31/20 13:47 Source of Information: Reports: Patient History Limitations: Reports: No Limitations - History of Present Illness INITIAL COMMENTS - FREE TEXT/NARRATIVE: HISTORY AND PHYSICAL: History of present illness: Patient is a 74-year-old female who presents to the emergency room with concerns of an infection of a sore that is on her right great toe. She states initially she noticed a sore on the left thumb and base of left thumb that has been present for approximately 1 week. She states he just appeared and are more aggravated today because she was washing the dishes. Over the past 2 days she noticed a new sore to the right great toe. She states she took off her sock and had noticed the sore. Over the past 24 hours the area has become more red and her family member encouraged her to come to the emergency room for evaluation. She denies having any drainage from the ulceration sites. Patient denies any fever, chills, headache, change in vision, syncope or near syncope. Denies any chest pain, back pain, shortness of breath or cough. Denies any abdominal pain, nausea, vomiting, diarrhea, constipation or dysuria. Patient has been eating and drinking appropriately. No previous history of diabetes, circulatory issues, recent travel, nor bug bites. No history of MRSA or communicable diseases. Review of systems: As per history of present illness and below otherwise all systems reviewed and negative. Past medical history: As per history of present illness and as reviewed below otherwise noncontributory. Surgical history: As per history of present illness and as reviewed below otherwise noncontributory. Social history: See social history for further information Family history: As per history of present illness and as reviewed below otherwise noncontributory. Physical exam: General: Well developed and well nourished 74-year-old female. Alert and orientated x 3. Nontoxic in appearance and in no acute distress. Vital signs are stable and have been reviewed by me. Nursing notes were reviewed. HEENT: Atraumatic, normocephalic, pupils equal and reactive bilaterally, negative for conjunctival pallor or scleral icterus, mucous membranes moist, TMs normal bilaterally, throat clear, neck supple, nontender, trachea midline. No drooling or trismus noted. No meningeal signs. No hot potato voice noted. Lungs: Clear to auscultation, breath sounds equal bilaterally, chest nontender. Normal work of breathing, no accessory muscles used. Heart: S1S2, regular rate and rhythm without overt murmur Abdomen: Soft, nondistended, nontender. Skin: Quarter sized ulceration noted at the base of the right great toe with mild surrounding erythema. Ulceration with scabbing noted to the mid left thumb approximately the size of a dime, $0.50 piece ulceration with surrounding erythema noted at the base of the right great thumb. No purulent drainage, fluctuance or induration is noted. There is some crusting/redness along the fold of the cartilage right ear. intact, warm, dry. No lesions or rashes noted. Hematologic: No petechiae or purpra. Mucosa appropriate color and normal nail bed color and refill. Extremities: Atraumatic, moves all extremities per self without difficulty or deficits, negative for cords or calf pain. Neurovascular unremarkable. Neuro: Awake, alert, oriented. Cranial nerves II through XII unremarkable. Cerebellum unremarkable. Motor and sensory unremarkable throughout. Exam nonfocal. Notes: I did have Dr Turner look at the patient's lesions on her right side of body as they are atypical in appearance. The lesions could be staph or strep related, does have some surrounding erythema of the sites. Lab work is unremarkable with the exception of a slightly elevated lactate. We will give her some IV fluids. She is nontoxic in appearance and will do oral antibiotics. Patient received a liter of fluids and a repeat lactic was ordered. This is come down to 0.7. She states she feels well and would like to be discharged to home. Her vital signs are stable and have improved since coming to the emergency room. We discussed the importance of close follow-up. Upon reevaluation she is appropriate for discharge to home. I did give her dermatology's phone number along with the 2 clinics in town and would like her seen next week for reevaluation. We discussed signs and symptoms that would prompt them to return to the Emergency Department. Medication, follow up and sup portive care measures were reviewed and discussed. Voices understanding and is agreeable to plan of care. Denies any further questions or concerns at this time. Diagnostics: CBC, CMP, lactate x 2 Therapeutics: IV fluid, Bactrim, Keflex Prescription: Keflex, Bactrim Impression: Cellulitis Plan: 1. Gently cleanse the area with mild soap and water. Keep clean and dry. Continue to monitor the sites for signs of improvement. If they become more red, painful, or have new symptoms - please return to the ED. 2. Take the antibiotics as prescribed. 3. I would like you to follow-up with your primary care provider or the matlab developer, we do have [facility], Dr Allen Definitive disposition and diagnosis as appropriate pending reevaluation and review of above. - Related Data Allergies Allergy/AdvReac Type Severity Reaction Status Date / Time adhesive tape Allergy Swelling Verified 03/31/20 13:50 Home Meds: Home Meds Calcium Carbonate [Calcium] 1,000 mg PO DAILY 08/18/17 [History] Cholecalciferol (Vitamin D3) [Vitamin D] 5,000 unit PO DAILY 08/18/17 [History] Thiamine HCl [Vitamin B-1] 1 tab PO DAILY 07/30/19 [History] Anxiety Med 03/31/20 [History] Sulfamethoxazole/Trimethoprim [Bactrim Ds Tablet] 1 each PO BID 10 Days #20 tablet 03/31/20 [Rx] cephALEXin [Keflex] 500 mg PO TID 10 Days #30 capsule 03/31/20 [Rx] Past Medical History HEENT History: Reports: Impaired Vision Other HEENT History: dentures top and bottom Cardiovascular History: Reports: None Respiratory History: Reports: COPD Gastrointestinal History: Reports: Bowel Obstruction Other Gastrointestinal History: 2013: required 2 ex laps. Peritonitis. Sepsis sydrome with shock. Prolonged ICU stay. Dr. Jin was the surgeon. Genitourinary History: Reports: None CLINICAL PHARMACY COORDINATOR History: Reports: Polycystic Ovaries Musculoskeletal History: Reports: Fracture, Other (See Below) Other Musculoskeletal History: fractured arm age 2 Neurological History: Reports: None Psychiatric History: Reports: Anxiety, Depression Endocrine/Metabolic History: Reports: None Hematologic History: Reports: Anemia, Blood Transfusion(s) Oncologic (Cancer) History: Reports: Lung, Other (See Below) Other Oncologic History: possible uterine or ovarian CA at age 21 - Infectious Disease History Infectious Disease History: Reports: Measles Other Infectious Disease History: Client denies history of C. Diff or MRSA - Past Surgical History Respiratory Surgical History: Reports: Lung Biopsies, Lung Resection Other Respiratory Surgeries/Procedures: left lobectomy; mass removed from right; hx of lung CA GI Surgical History: Reports: Appendectomy, Cholecystectomy, Colonoscopy, Other (See Below) Female Surgical History: Reports: Hysterectomy Social & Family History - Family History Family Medical History: Noncontributory HEENT: Reports: None Cardiac: Reports: None Respiratory: Reports: None Endocrine/Metabolic: Reports: Diabetes, type II Oncologic: Reports: Breast, Liver, Lung - Tobacco Use Smoking Status *Q: Current Every Day Smoker Years of Tobacco use: 30 Packs/Tins Daily: 0.2 - Caffeine Use Caffeine Use: Reports: Coffee, Soda - Recreational Drug Use Recreational Drug Use: No - Living Situation & Occupation Living situation: Reports: , Other (grand-daughter helps with cares.) Occupation: Retired ED ROS GENERAL - Review of Systems Review Of Systems: Comprehensive ROS is negative, except as noted in HPI. ED EXAM, SKIN/RASH Exam: See Below (See dictation) Course - Vital Signs Last Recorded V/S: Last Vital Signs Temp 96.7 F L 03/31/20 15:16 Pulse 92 03/31/20 15:16 Resp 13 03/31/20 15:16 BP 159/89 H 03/31/20 15:16 Pulse Ox 96 03/31/20 15:16 - Orders/Labs/Meds Labs: Laboratory Tests 03/31/20 03/31/20 03/31/20 Range/Units 14:20 14:20 14:20 WBC 7.80 (4.0-11.0) K/uL RBC 4.47 (4.30-5.90) M/uL Hgb 13.8 (12.0-16.0) g/dL Hct 40.9 (36.0-46.0) % MCV 91.5 (80.0-98.0) fL MCH 30.9 (27.0-32.0) pg MCHC 33.7 (31.0-37.0) g/dL RDW Std Deviation 42.5 (28.0-62.0) fl RDW Coeff of Danisha 13 (11.0-15.0) % Plt Count 143 L (150-400) K/uL MPV 11.70 (7.40-12.00) fL Neut % (Auto) 74.0 (48.0-80.0) % Lymph % (Auto) 17.2 (16.0-40.0) % Graves % (Auto) 7.9 (0.0-15.0) % Eos % (Auto) 0.6 (0.0-7.0) % Baso % (Auto) 0.3 (0.0-1.5) % Neut # (Auto) 5.8 H (1.4-5.7) K/uL Lymph # (Auto) 1.3 (0.6-2.4) K/uL Graves # (Auto) 0.6 (0.0-0.8) K/uL Eos # (Auto) 0.1 (0.0-0.7) K/uL Baso # (Auto) 0.0 (0.0-0.1) K/uL Lactate 2.3 H* (0.20-2.00) mmol/L Sodium 140 (136-145) mmol/L Potassium 4.4 (3.5-5.1) mmol/L Chloride 103 (98-107) mmol/L Carbon Dioxide 23.9 (21.0-32.0) mmol/L BUN 24 H (7.0-18.0) mg/dL Creatinine 1.0 (0.6-1.0) mg/dL Est Cr Clr Drug Dosing 38.88 mL/min Estimated GFR (MDRD) 54.2 ml/min Glucose 192 H (74-106) mg/dL Calcium 9.0 (8.5-10.1) mg/dL Total Bilirubin 0.3 (0.2-1.0) mg/dL AST 34 (15-37) IU/L ALT 34 (14-63) IU/L Alkaline Phosphatase 81 (46-116) U/L Total Protein 6.7 (6.4-8.2) g/dL Albumin 3.5 (3.4-5.0) g/dL Globulin 3.2 (2.6-4.0) g/dL Albumin/Globulin Ratio 1.1 (0.9-1.6) 03/31/20 Range/Units 15:49 WBC (4.0-11.0) K/uL RBC (4.30-5.90) M/uL Hgb (12.0-16.0) g/dL Hct (36.0-46.0) % MCV (80.0-98.0) fL MCH (27.0-32.0) pg MCHC (31.0-37.0) g/dL RDW Std Deviation (28.0-62.0) fl RDW Coeff of Danisha (11.0-15.0) % Plt Count (150-400) K/uL MPV (7.40-12.00) fL Neut % (Auto) (48.0-80.0) % Lymph % (Auto) (16.0-40.0) % Graves % (Auto) (0.0-15.0) % Eos % (Auto) (0.0-7.0) % Baso % (Auto) (0.0-1.5) % Neut # (Auto) (1.4-5.7) K/uL Lymph # (Auto) (0.6-2.4) K/uL Graves # (Auto) (0.0-0.8) K/uL Eos # (Auto) (0.0-0.7) K/uL Baso # (Auto) (0.0-0.1) K/uL Lactate 0.7 (0.20-2.00) mmol/L Sodium (136-145) mmol/L Potassium (3.5-5.1) mmol/L Chloride (98-107) mmol/L Carbon Dioxide (21.0-32.0) mmol/L BUN (7.0-18.0) mg/dL Creatinine (0.6-1.0) mg/dL Est Cr Clr Drug Dosing mL/min Estimated GFR (MDRD) ml/min Glucose (74-106) mg/dL Calcium (8.5-10.1) mg/dL Total Bilirubin (0.2-1.0) mg/dL AST (15-37) IU/L ALT (14-63) IU/L Alkaline Phosphatase (46-116) U/L Total Protein (6.4-8.2) g/dL Albumin (3.4-5.0) g/dL Globulin (2.6-4.0) g/dL Albumin/Globulin Ratio (0.9-1.6) Meds: Medications Discontinued Medications Generic Name Dose Route Start Last Admin Trade Name Freq PRN Reason Stop Dose Admin Cephalexin 500 mg 03/31/20 14:40 03/31/20 14:47 Keflex PO 03/31/20 14:41 500 mg ONETIME ONE Administration Sodium Chloride 1,000 mls @ 999 mls/hr 03/31/20 14:33 03/31/20 14:45 Normal Saline IV 03/31/20 15:33 999 mls/hr STAT ONE Administration Trimethoprim/Sulfamethoxazole 1 tab 03/31/20 14:41 03/31/20 14:47 Septra Ds PO 03/31/20 14:42 1 tab ONETIME ONE Administration Departure - Departure Time of Disposition: 16:04 Disposition: Home, Self-Care 01 Clinical Impression: Cellulitis Qualifiers: Site of cellulitis: extremity Site of cellulitis of extremity: lower extremity Laterality: right Qualified Code(s): L03.115 - Cellulitis of right lower limb - Discharge Information Prescriptions: Sulfamethoxazole/Trimethoprim [Bactrim Ds Tablet] 1 each PO BID 10 Days #20 tablet cephALEXin [Keflex] 500 mg PO TID 10 Days #30 capsule Instructions: Cellulitis, Adult, Nuav-ey-Hcts Referrals: Chalino Servin MD [Primary Care Provider] - Forms: ED Department Discharge Additional Instructions: The following information is given to patients seen in the emergency department who are being discharged to home. This information is to outline your options for follow-up care. We provide all patients seen in our emergency department with a follow-up referral. The need for follow-up, as well as the timing and circumstances, are variable depending upon the specifics of your emergency department visit. If you don't have a primary care physician on staff, we will provide you with a referral. We always advise you to contact your personal physician following an emergency department visit to inform them of the circumstance of the visit and for follow-up with them and/or the need for any referrals to a consulting specialist. The emergency department will also refer you to a specialist when appropriate. This referral assures that you have the opportunity for follow-up care with a specialist. All of these measure are taken in an effort to provide you with optimal care, which includes your follow-up. Under all circumstances we always encourage you to contact your private physician who remains a resource for coordinating your care. When calling for follow-up care, please make the office aware that this follow-up is from your recent emergency room visit. If for any reason you are refused follow-up, please contact the [facility] Emergency Department at and asked to speak to the emergency department charge nurse. [facility] [address] [place] [address] [facility] [address] [place] [id number] Thank you for choosing the [facility] emergency department in [place] for your medical needs today. It was a pleasure caring for you. Today you were seen in the emergency department for skin infection and lesions. 1. Gently cleanse the area with mild soap and water. Keep clean and dry. Continue to monitor the sites for signs of improvement. If they become more red, painful, or have new symptoms - please return to the ED. 2. Take the antibiotics as prescribed. 3. I would like you to follow-up with your primary care provider or the matlab developer, we do have [facility], Dr Allen Sepsis Event Note (ED) - Evaluation Sepsis Screening Result: No Definite Risk - Focused Exam Vital Signs: Vital Signs Temp Pulse Resp BP Pulse Ox 03/31/20 15:16 96.7 F L 92 13 159/89 H 96 03/31/20 15:05 74 162/98 H 96 03/31/20 14:47 98.8 F 90 13 156/90 H 94 L 03/31/20 13:47 97.2 F 119 H 20 192/94 H 95
[2020-03-31 14:53] LABS: CARBON DIOXIDE,CO2 23.9 mmol/L (21.0-32.0); POTASSIUM,K 4.4 mmol/L (3.5-5.1)
[2020-03-31 16:25] VITALS: BP 120/78; PULSE 79
== END 2020-03-31 16:26 | disposition home or self-care (01) ==
LOC: MW.ED 13:41
DX: L03.115 Cellulitis of right lower limb (principal); L98.499 Non-pressure chronic ulcer of skin of other sites with unspecified severity; L97.519 Non-pressure chronic ulcer of other part of right foot with unspecified severity; J44.9 Chronic obstructive pulmonary disease, unspecified; F17.210 Nicotine dependence, cigarettes, uncomplicated; Z91.048 Other nonmedicinal substance allergy status
CPT/HCPCS: 36415; 80053; 83605; 85025; 96360; 99283; A9270; J7030

== ENCOUNTER 2021-04-20 11:16 | Emergency (ER) | payer MEDICARE, OTHER ==
[2021-04-20] MEDS ORDERED: Sodium Chloride 0.9% 1,000 ML IV ONE (11:25)
--- NOTE | 2021-04-20 11:31 | EDM.PDOC ---
ED HPI GENERAL MEDICAL PROBLEM - General Stated Complaint: EMS ARRIVAL Time Seen by Provider: 04/20/21 11:17 Source of Information: Reports: Patient, EMS History Limitations: Reports: No Limitations - History of Present Illness INITIAL COMMENTS - FREE TEXT/NARRATIVE: HISTORY AND PHYSICAL: History of present illness: Patient is a 75-year-old female who presents emergency room today EMS with concern of a near syncopal event that occurred just prior to travel to the emergency room. Patient states that she lives at [facility] and states that on they have a breakfast. 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 Patient states that she was walking down the hallway carrying the pancakes and states she began to feel really dizzy. Patient states that she continued to walk to the gym area where the feed was going to occur and states that she told somebody she was feeling dizzy who helped lower her to a chair. Patient states when in the chair, she almost completely passed out but states that she did not completely lose consciousness but then urinated herself. Patient states that EMS was called and brought her here to the emergency room. Per EMS, patient did have positive orthostatic vitals and states that her blood pressure was 70 over 40s with standing but was normal when she was sitting down. Patient denies any head injury. Patient sta filippo that she was lowered to a chair and did not have any fall or injury. Patient states that she was surrounded by people helping her during this event who also had witnessed this to EMS. Patient states that this time, she feels completely normal and has no complaints. Patient denies fever, chills, chest pain, shortness of breath, or cough. Denies headache, neck stiff ness, change in vision. Denies nausea, vomiting, abdominal pain, diarrhea, constipation, or dysuria. Has not noted any blood in urine or stool. Patient has been eating and drinking appropriately. Review of systems: As per history of present illness and below otherwise all systems reviewed and negative. Past medical history: As per history of present illness and as reviewed below otherwise noncontributory. Surgical history: As per history of present illness and as reviewed below otherwise noncontributory. Social history: See social history for further information Family history: As per history of present illness and as reviewed below otherwise noncontributory. Physical exam: General: Patient is alert, oriented, and in no acute distress. Patient sitting comfortably on exam table. Vitals stable and reviewed by me. HEENT: Atraumatic, normocephalic, pupils equal and reactive bilaterally, negative for conjunctival pallor or scleral icterus, mucous membranes moist, throat clear, neck supple, nontender, trachea midline. No drooling or trismus noted. No meningeal signs. No hot potato voice noted. Lungs: Clear to auscultation, breath sounds equal bilaterally, chest nontender. Heart: S1S2, regular rate and rhythm without overt murmur Abdomen: Soft, nondistended, nontender. Negative for masses or hepatosplenomegaly. Negative for costovertebral tenderness. Pelvis: Stable nontender. Genitourinary: Incontinent of urine on exam. Otherwise deferred. Rectal: Deferred. Skin: Intact, warm, dry. No lesions or rashes noted. Extremities: Atraumatic, negative for cords or calf pain. Neurovascular unremarkable. Neuro: Awake, alert, oriented. Cranial nerves II through XII unremarkable. Cerebellum unremarkable. Motor and sensory unremarkable throughout. Exam nonfocal. Notes: Patient is a 75-year-old female, who presents emergency room today via EMS with concern of near syncope event. Upon arrival to the ED, patient is vitally stable and well-appearing on exam but is noted to be incontinent of urine on ex am. Will obtain cardiac evaluation, provide fluid bolus given EMS positive orthostasis, and will reassess patient. See Dr. Higginbotham dictation for specific EKG interpretation. However, NSR without STEMI. CBC mild derangements unremarkable. CMP shows a mild elevation of carbon dioxide at 32.2, BUN and creatinine mildly elevated at 19 and 1.1 respectively, and glucose mobilization at 195. Otherwise mild derangements of CMP unremarkable. Hemoglobin A1c 6.1 not diagnostic for diabetes. Troponin negative. Urinalysis unremarkable. Chest x-ray stable. Initial orthostatic vitals prior to fluids were positive with a greater than 20 mmHg drop systolic from laying to standing. Patient also dizzy when standing. Upon reevaluation of patient and following fluid bolus, she states she feels much better. Repeat orthostatic vitals are no longer positive with a standing blood pressure of 130/80, sitting blood pressure 133/84, and laying blood pressure 145/80. Patient does not become dizzy with standing and is requesting to leave the ED. Strict return precautions thoroughly discussed with patient. Discussed importance for follow-up with a primary care provider. Voices understanding and is agreeable to plan of care. Denies any further questions or concerns at this time. Diagnostics: EKG, CBC, CMP, UA, CXR, Trop, Orthostatic vitals Therapeutics: NS Prescription: None Impression: Near Syncope Dehydration Plan: 1. Small but frequent sips of fluid to prevent dehydration. 2. Follow-up with a primary care provider as discussed. Return to the ED as needed and as discussed. Definitive disposition and diagnosis as appropriate pending reevaluation and review of above. - Related Data Allergies Allergy/AdvReac Type Severity Reaction Status Date / Time adhesive tape Allergy Swelling Verified 03/31/20 13:50 Home Meds: Home Meds Calcium Carbonate [Calcium] 1,000 mg PO DAILY 08/18/17 [History] Cholecalciferol (Vitamin D3) [Vitamin D] 5,000 unit PO DAILY 08/18/17 [History] Thiamine HCl [Vitamin B-1] 1 tab PO DAILY 07/30/19 [History] Anxiety Med 03/31/20 [History] Sulfamethoxazole/Trimethoprim [Bactrim Ds Tablet] 1 each PO BID 10 Days #20 tablet 03/31/20 [Rx] cephALEXin [Keflex] 500 mg PO TID 10 Days #30 capsule 03/31/20 [Rx] Past Medical History HEENT History: Reports: Impaired Vision Other HEENT History: dentures top and bottom Cardiovascular History: Reports: None Respiratory History: Reports: COPD Gastrointestinal History: Reports: Bowel Obstruction Other Gastrointestinal History: 2013: required 2 ex laps. Peritonitis. Sepsis sydrome with shock. Prolonged ICU stay. Dr. Jin was the surgeon. Genitourinary History: Reports: None [employer] History: Reports: Polycystic Ovaries Musculoskeletal History: Reports: Fracture, Other (See Below) Other Musculoskeletal History: fractured arm age 2 Neurological History: Reports: None Psychiatric History: Reports: Anxiety, Depression Endocrine/Metabolic History: Reports: None Hematologic History: Reports: Anemia, Blood Transfusion(s) Oncologic (Cancer) History: Reports: Lung, Other (See Below) Other Oncologic History: possible uterine or ovarian CA at age 21 - Infectious Disease History Infectious Disease History: Reports: Measles Other Infectious Disease History: Client denies history of C. Diff or MRSA - Past Surgical History Respiratory Surgical History: Reports: Lung Biopsies, Lung Resection Other Respiratory Surgeries/Procedures: left lobectomy; mass removed from right; hx of lung CA GI Surgical History: Reports: Appendectomy, Cholecystectomy, Colonoscopy, Other (See Below) Female Surgical History: Reports: Hysterectomy Social & Family History - Family History Family Medical History: No Pertinent Family History HEENT: Reports: None Cardiac: Reports: None Respiratory: Reports: None Endocrine/Metabolic: Reports: Diabetes, type II Oncologic: Reports: Breast, Liver, Lung - Caffeine Use Caffeine Use: Reports: Coffee, Soda - Living Situation & Occupation Living situation: Reports: , Other (grand-daughter helps with cares.) Occupation: Retired ED ROS GENERAL - Review of Systems Review Of Systems: Comprehensive ROS is negative, except as noted in HPI. ED EXAM, GENERAL - Physical Exam Exam: See Below (see dictation) Course - Vital Signs Last Recorded V/S: Last Vital Signs Temp 97.0 F 04/20/21 11:29 Pulse 85 04/20/21 15:23 Resp 18 04/20/21 15:23 BP 128/70 04/20/21 15:23 Pulse Ox 96 04/20/21 15:23 Orthostatic Blood Pressure [ 85/54 Standing] Orthostatic Blood Pressure [ 99/65 Sitting] Orthostatic Blood Pressure [ 114/65 Supine] - Orders/Labs/Meds Labs: Laboratory Tests 04/20/21 04/20/21 04/20/21 Range/Units 11:41 11:41 11:41 WBC 4.95 (4.0-11.0) K/uL RBC 4.34 (4.30-5.90) M/uL Hgb 13.1 (12.0-16.0) g/dL Hct 39.2 (36.0-46.0) % MCV 90.3 (80.0-98.0) fL MCH 30.2 (27.0-32.0) pg MCHC 33.4 (31.0-37.0) g/dL RDW Std Deviation 44.4 (28.0-62.0) fl RDW Coeff of Danisha 13 (11.0-15.0) % Plt Count 180 (150-400) K/uL MPV 11.20 (7.40-12.00) fL Neut % (Auto) 76.4 (48.0-80.0) % Lymph % (Auto) 13.3 L (16.0-40.0) % Menard % (Auto) 8.9 (0.0-15.0) % Eos % (Auto) 1.0 (0.0-7.0) % Baso % (Auto) 0.4 (0.0-1.5) % Neut # (Auto) 3.8 (1.4-5.7) K/uL Lymph # (Auto) 0.7 (0.6-2.4) K/uL Menard # (Auto) 0.4 (0.0-0.8) K/uL Eos # (Auto) 0.1 (0.0-0.7) K/uL Baso # (Auto) 0.0 (0.0-0.1) K/uL Nucleated RBC % 0.0 /100WBC Nucleated RBCs # 0 K/uL Sodium 139 (136-145) mmol/L Potassium 3.7 (3.5-5.1) mmol/L Chloride 101 (98-107) mmol/L Carbon Dioxide 32.2 H (21.0-32.0) mmol/L BUN 19 H (7.0-18.0) mg/dL Creatinine 1.1 H (0.6-1.0) mg/dL Est Cr Clr Drug Dosing 37.97 mL/min Estimated GFR (MDRD) 48.4 ml/min Glucose 195 H (74-106) mg/dL Hemoglobin A1c 6.1 (4.5 - 6.2) % Calcium 9.0 (8.5-10.1) mg/dL Total Bilirubin 0.3 (0.2-1.0) mg/dL AST 25 (15-37) IU/L ALT 25 (14-63) IU/L Alkaline Phosphatase 76 (46-116) U/L Troponin I < 0.050 (0.000-0.056) ng/mL Total Protein 7.0 (6.4-8.2) g/dL Albumin 3.2 L (3.4-5.0) g/dL Globulin 3.8 (2.6-4.0) g/dL Albumin/Globulin Ratio 0.8 L (0.9-1.6) Urine Color Urine Appearance Urine pH (5.0-8.0) Ur Specific [place] (1.001-1.035) Urine Protein (NEGATIVE) mg/dL Urine Glucose (UA) (NEGATIVE) mg/dL Urine Ketones (NEGATIVE) mg/dL Urine Occult Blood (NEGATIVE) Urine Nitrite (NEGATIVE) Urine Bilirubin (NEGATIVE) Urine Urobilinogen (<2.0) EU/dL Ur Leukocyte Esterase (NEGATIVE) Urine RBC (0-2/HPF) Urine WBC (0-5/HPF) Ur Epithelial Cells (NONE-FEW) Urine Bacteria (NEGATIVE) 04/20/21 Range/Units 14:15 WBC (4.0-11.0) K/uL RBC (4.30-5.90) M/uL Hgb (12.0-16.0) g/dL Hct (36.0-46.0) % MCV (80.0-98.0) fL MCH (27.0-32.0) pg MCHC (31.0-37.0) g/dL RDW Std Deviation (28.0-62.0) fl RDW Coeff of Danisha (11.0-15.0) % Plt Count (150-400) K/uL MPV (7.40-12.00) fL Neut % (Auto) (48.0-80.0) % Lymph % (Auto) (16.0-40.0) % Menard % (Auto) (0.0-15.0) % Eos % (Auto) (0.0-7.0) % Baso % (Auto) (0.0-1.5) % Neut # (Auto) (1.4-5.7) K/uL Lymph # (Auto) (0.6-2.4) K/uL Menard # (Auto) (0.0-0.8) K/uL Eos # (Auto) (0.0-0.7) K/uL Baso # (Auto) (0.0-0.1) K/uL Nucleated RBC % /100WBC Nucleated RBCs # K/uL Sodium (136-145) mmol/L Potassium (3.5-5.1) mmol/L Chloride (98-107) mmol/L Carbon Dioxide (21.0-32.0) mmol/L BUN (7.0-18.0) mg/dL Creatinine (0.6-1.0) mg/dL Est Cr Clr Drug Dosing mL/min Estimated GFR (MDRD) ml/min Glucose (74-106) mg/dL Hemoglobin A1c (4.5 - 6.2) % Calcium (8.5-10.1) mg/dL Total Bilirubin (0.2-1.0) mg/dL AST (15-37) IU/L ALT (14-63) IU/L Alkaline Phosphatase (46-116) U/L Troponin I (0.000-0.056) ng/mL Total Protein (6.4-8.2) g/dL Albumin (3.4-5.0) g/dL Globulin (2.6-4.0) g/dL Albumin/Globulin Ratio (0.9-1.6) Urine Color YELLOW Urine Appearance CLEAR Urine pH 6.5 (5.0-8.0) Ur Specific [place] 1.010 (1.001-1.035) Urine Protein NEGATIVE (NEGATIVE) mg/dL Urine Glucose (UA) NEGATIVE (NEGATIVE) mg/dL Urine Ketones NEGATIVE (NEGATIVE) mg/dL Urine Occult Blood TRACE-INTACT H (NEGATIVE) Urine Nitrite NEGATIVE (NEGATIVE) Urine Bilirubin NEGATIVE (NEGATIVE) Urine Urobilinogen 0.2 (<2.0) EU/dL Ur Leukocyte Esterase NEGATIVE (NEGATIVE) Urine RBC 0-1 (0-2/HPF) Urine WBC 0-1 (0-5/HPF) Ur Epithelial Cells RARE (NONE-FEW) Urine Bacteria NOT SEEN (NEGATIVE) Meds: Medications Discontinued Medications Generic Name Dose Route Start Last Admin Trade Name Freq PRN Reason Stop Dose Admin Sodium Chloride 1,000 mls @ 999 mls/hr 04/20/21 11:25 04/20/21 12:15 Normal Saline IV 04/20/21 12:25 999 mls/hr BOLUS ONE Administration Departure - Departure Time of Disposition: 15:09 Disposition: Home, Self-Care 01 Clinical Impression: Near syncope, Dehydration - Discharge Information Referrals: Chalino Servin MD [Primary Care Provider] - Forms: ED Department Discharge Additional Instructions: The following information is given to patients seen in the emergency department who are being discharged to home. This information is to outline your options for follow-up care. We provide all patients seen in our emergency department with a follow-up referral. The need for follow-up, as well as the timing and circumstances, are variable depending upon the specifics of your emergency department visit. If you don't have a primary care physician on staff, we will provide you with a referral. We always advise you to contact your personal physician following an emergency department visit to inform them of the circumstance of the visit and for follow-up with them and/or the need for any referrals to a consulting specialist. The emergency department will also refer you to a specialist when appropriate. This referral assures that you have the opportunity for follow-up care with a specialist. All of these measure are taken in an effort to provide you with optimal care, which includes your follow-up. Under all circumstances we always encourage you to contact your private physician who remains a resource for coordinating your care. When calling for follow-up care, please make the office aware that this follow-up is from your recent emergency room visit. If for any reason you are refused follow-up, please contact the [facility] Emergency Department at and asked to speak to the emergency department charge nurse. [facility] [address] [place] [address] [place] [address] 1. Small but frequent sips of fluid to prevent dehydration. 2. Follow-up with a primary care provider as discussed. Return to the ED as needed and as discussed. Sepsis Event Note (ED) - Focused Exam Vital Signs: Vital Signs Temp Pulse Resp BP Pulse Ox 04/20/21 15:23 85 18 128/70 96 04/20/21 11:29 97.0 F 91 18 128/81 91 L
--- NOTE | 2021-04-20 11:37 | PCM.EKG ---
#1 Interpretation EKG Date: 04/20/21 Time: 11:28 Rhythm: NSR Rate (Beats/Min): 78 Quail: Normal P-Wave: Present QRS: Normal ST-T: Normal QT: Normal MO/PQ Interval: 125 EKG Interpretation Comments: No ischemic changes, poor baseline in lead V2, otherwise normal EKG
--- NOTE | 2021-04-20 12:01 | CR ---
Indication: Syncope. Technique: AP portable view of the chest. Comparison: July 30, 2019. Findings: The left hemidiaphragm is elevated. The heart is normal in size. The lungs are hyperinflated. No infiltrate, pleural effusion, or pneumothorax is identified. Impression: Stable chest x-ray Dictated by Ita Porter MD @ 04/20/2021 11:58:47 AM (Electronically Signed)
[2021-04-20 12:18] LABS: BLOOD UREA NITROGEN,BUN 19 mg/dL (7.0-18.0); CARBON DIOXIDE,CO2 32.2 mmol/L (21.0-32.0); CHLORIDE,CL 101 mmol/L (98-107); GLUCOSE RANDOM 195 mg/dL (74-106); POTASSIUM,K 3.7 mmol/L (3.5-5.1); SODIUM,NA 139 mmol/L (136-145)
[2021-04-20 13:10] LABS: HEMOGLOBIN A1C 6.1 %
[2021-04-20 15:24] VITALS: BP 128/70; PULSE 85
== END 2021-04-20 15:38 | disposition home or self-care (01) ==
LOC: MW.ED 11:16
DX: R55 Syncope and collapse (principal); E86.0 Dehydration; J44.9 Chronic obstructive pulmonary disease, unspecified; Z91.048 Other nonmedicinal substance allergy status
CPT/HCPCS: 36415; 71045; 80053; 81001; 83036; 84484; 85025; 93005; 99285; J7030

== ENCOUNTER 2021-06-24 15:29 | Observation (INO) | payer MEDICARE, OTHER ==
[2021-06-24] MEDS ORDERED: Sodium Chloride 0.9% 1,000 ML IV ONE (15:47)
[2021-06-24] MEDS ORDERED: Sodium Chloride 0.9% 10 ML Syringe FLUSH PRN (15:47)
[2021-06-24] MEDS ORDERED: Sodium Chloride 0.9% 2.5 ML Syringe FLUSH PRN (15:47)
--- NOTE | 2021-06-24 16:39 | CR ---
INDICATION: Syncope TECHNIQUE: Chest 1 view. COMPARISON: 04/20/2021 FINDINGS: Cardiovascular and mediastinum: Heart size and vasculature are normal in caliber and appearance. Mediastinum is within normal limits. Lungs and pleural space: Lungs are clear. No sign of infiltrate or mass. No sign of pleural effusion. No pneumothorax. Bones and soft tissues: No significant findings. IMPRESSION: Unremarkable chest. Dictated by Yovani Del Angel MD @ 06/24/2021 4:37:52 PM (Electronically Signed)
[2021-06-24 16:45] LABS: BLOOD UREA NITROGEN,BUN 27 mg/dL (7.0-18.0); CARBON DIOXIDE,CO2 31.1 mmol/L (21.0-32.0); CHLORIDE,CL 94 mmol/L (98-107); GLUCOSE RANDOM 142 mg/dL (74-106); POTASSIUM,K 4.1 mmol/L (3.5-5.1); SODIUM,NA 134 mmol/L (136-145)
[2021-06-24] MEDS ORDERED: Ondansetron 4 MG/2 ML SDV IVPUSH ONE (17:43)
--- NOTE | 2021-06-24 17:48 | EDM.PDOC ---
ED HPI GENERAL MEDICAL PROBLEM - General Chief Complaint: Syncope Stated Complaint: EMS Time Seen by Provider: 06/24/21 15:35 - History of Present Illness INITIAL COMMENTS - FREE TEXT/NARRATIVE: HISTORY AND PHYSICAL: History of present illness: This is a 75-year-old healthy female who was brought into the ER today by EMS secondary to a syncopal episode while she was playing bingo. Patient reports that she woke up today feeling slightly nauseous but otherwise in her usual state of good health. Patient reports that she was playing bingo and was sitting down. EMS reports that the patient slumped over and became unresponsive for approximately 5 to 10 seconds with no witnessed seizure activity. Patient denies any loss of bowel or bladder function. Patient not bite her teeth. Patient reports that when she came around that she was not confused and did not realize that she had passed out. Patient denies any recent fevers, shakes, chills, nausea, vomiting, diarrhea, dysuria, frequency, urgency, chest pain, shortness of breath. Patient reports that she is been tolerating p.o. solids and liquids well. Patient denies any new foods or medications. Patient denies any stimulants or excessive caffeine use. Patient denies any increased soda use. Patient reports that she has no other complaints at this time. Patient denies any focal weakness, double vision, blurred vision, slurred speech, weakness to his upper or lower extremities. Patient denies any melena or bright red blood per rectum. Review of systems: As per history of present illness and below otherwise all systems reviewed and negative. Past medical history: As per history of present illness and as reviewed below otherwise noncontributory. Surgical history: As per history of present illness and as reviewed below otherwise noncontributory. Social history: No reported history of drug abuse. Family history: As per history of present illness and as reviewed below otherwise noncontributory. Physical exam: This patient was seen and evaluated during the 2019 SARS-CoV-2 novel coronavirus pandemic period. Community viral transmission is ongoing at time of this encounter and the emergency department is operating under pandemic response procedures. Constitutional: Patient is oriented to person, place, and time. Appears well- developed and well-nourished. No distress. HEENT: Moist mucous membranes Head: Normocephalic and atraumatic Eyes: Right eye exhibits no discharge. Left eye exhibits no discharge. No scleral icterus Neck: Normal range of motion. No tracheal deviation present. Cardiovascular: Normal rate and regular rhythm. Pulmonary: Effort normal, no respiratory distress. Abdominal: No distention Musculoskeletal: Normal range of motion Neurologic: Alert and oriented to person, place and time. Skin: Loda, warm and dry. Psychiatric: Normal mood and affect. Behavior is normal. Judgment and thought content normal. Nursing note and vital signs have been reviewed Diagnostics: CBC, CMP, troponin, within normal limits. EKG June 24, 2021 at 3:30 PM EKG: As interpreted by ER physician: [place]ain[place]: Nonspecific ST-T wave abnormalities Normal axis No evidence of ST elevation WI Normal sinus rhythm heart rate of 74 with LVH Therapeutics: NSS x1 L, Zofran Assessment and plan: This is a 75-year-old female who presents ER today secondary to a syncopal episode while she was playing bingo. Patient reports that she was sitting down when the symptoms occurred and that she was not in a standing position. Patient denies any other symptoms at this time. Patient's labs and EKG are unremarkable. Patient will be admitted for ops. Case has been discussed with Dr. Indio Brady who is agreed to assist us with observation level of care in this patient. Definitive disposition and diagnosis as appropriate pending reevaluation and review of above. - Related Data Allergies Allergy/AdvReac Type Severity Reaction Status Date / Time adhesive tape Allergy Swelling Verified 03/31/20 13:50 Home Meds: Home Meds Calcium Carbonate [Calcium] 1,000 mg PO DAILY 08/18/17 [History] Cholecalciferol (Vitamin D3) [Vitamin D] 5,000 unit PO DAILY 08/18/17 [History] Thiamine HCl [Vitamin B-1] 1 tab PO DAILY 07/30/19 [History] Past Medical History HEENT History: Reports: Impaired Vision Other HEENT History: dentures top and bottom Cardiovascular History: Reports: None Respiratory History: Reports: COPD Gastrointestinal History: Reports: Bowel Obstruction Other Gastrointestinal History: 2013: required 2 ex laps. Peritonitis. Sepsis sydrome with shock. Prolonged ICU stay. Dr. Jin was the surgeon. Genitourinary History: Reports: None TRIP RIDER History: Reports: Polycystic Ovaries Musculoskeletal History: Reports: Fracture, Other (See Below) Other Musculoskeletal History: fractured arm age 2 Neurological History: Reports: None Psychiatric History: Reports: Anxiety, Depression Endocrine/Metabolic History: Reports: None Hematologic History: Reports: Anemia, Blood Transfusion(s) Oncologic (Cancer) History: Reports: Lung, Other (See Below) Other Oncologic History: possible uterine or ovarian CA at age 21 - Infectious Disease History Infectious Disease History: Reports: Measles Other Infectious Disease History: Client denies history of C. Diff or MRSA - Past Surgical History HEENT Surgical History: Reports: Adenoidectomy, Oral Surgery, Tonsillectomy Respiratory Surgical History: Reports: Lung Biopsies, Lung Resection Other Respiratory Surgeries/Procedures: left lobectomy; mass removed from right; hx of lung CA GI Surgical History: Reports: Appendectomy, Cholecystectomy, Colonoscopy, Other (See Below) Other GI Surgeries/Procedures: bowl resection 2014 Female Surgical History: Reports: Hysterectomy Oncologic Surgical History: Reports: None Social & Family History - Family History Family Medical History: No Pertinent Family History HEENT: Reports: None Cardiac: Reports: None Respiratory: Reports: None Endocrine/Metabolic: Reports: Diabetes, type II Oncologic: Reports: Breast, Liver, Lung - Tobacco Use Tobacco Use Status *Q: Current Every Day Tobacco User Years of Tobacco use: 55 Packs/Tins Daily: 0.3 - Caffeine Use Caffeine Use: Reports: Soda - Recreational Drug Use Recreational Drug Use: No - Living Situation & Occupation Living situation: Reports: , Other (grand-daughter helps with cares.) Occupation: Retired ED ROS GENERAL - Review of Systems Review Of Systems: See Below ED EXAM, GENERAL - Physical Exam Exam: See Below Course - Vital Signs Last Recorded V/S: Last Vital Signs Temp 96.6 F L 06/24/21 15:38 Pulse 78 06/24/21 17:29 Resp 16 06/24/21 15:38 BP 142/78 H 06/24/21 17:29 Pulse Ox 97 06/24/21 17:29 - Orders/Labs/Meds Orders: Active Orders 24 hr Category Date Time Status Patient Status [ADT] Routine ADT 06/24/21 17:43 Active CORONAVIRUS COVID-19 SHIRLENE [MOLEC] Stat Lab 06/24/21 15:47 Ordered UA W/NENA RFLX IF INDICATED [URIN] Stat Lab 06/24/21 15:47 Ordered Sodium Chloride 0.9% [Saline Flush] Med 06/24/21 15:47 Active 10 ml FLUSH ASDIRECTED PRN Sodium Chloride 0.9% [Saline Flush] Med 06/24/21 15:47 Active 2.5 ml FLUSH ASDIRECTED PRN Saline Lock Insert [OM.PC] Stat Oth 06/24/21 15:47 Ordered Medication Orders Sodium Chloride (Sodium Chloride 0.9% 10 Ml Syringe) 10 ml FLUSH ASDIRECTED PRN PRN Reason: Keep Vein Open Sodium Chloride (Sodium Chloride 0.9% 2.5 Ml Syringe) 2.5 ml FLUSH ASDIRECTED PRN PRN Reason: Keep Vein Open Labs: Laboratory Tests 06/24/21 06/24/21 Range/Units 15:57 15:57 WBC 11.11 H (4.0-11.0) K/uL RBC 4.77 (4.30-5.90) M/uL Hgb 14.6 (12.0-16.0) g/dL Hct 43.9 (36.0-46.0) % MCV 92.0 (80.0-98.0) fL MCH 30.6 (27.0-32.0) pg MCHC 33.3 (31.0-37.0) g/dL RDW Std Deviation 46.0 (28.0-62.0) fl RDW Coeff of Danisha 14 (11.0-15.0) % Plt Count 214 (150-400) K/uL MPV 11.80 (7.40-12.00) fL Neut % (Auto) 82.4 H (48.0-80.0) % Lymph % (Auto) 9.5 L (16.0-40.0) % Rains % (Auto) 7.7 (0.0-15.0) % Eos % (Auto) 0.3 (0.0-7.0) % Baso % (Auto) 0.1 (0.0-1.5) % Neut # (Auto) 9.2 H (1.4-5.7) K/uL Lymph # (Auto) 1.1 (0.6-2.4) K/uL Rains # (Auto) 0.9 H (0.0-0.8) K/uL Eos # (Auto) 0.0 (0.0-0.7) K/uL Baso # (Auto) 0.0 (0.0-0.1) K/uL Nucleated RBC % 0.0 /100WBC Nucleated RBCs # 0 K/uL Sodium 134 L (136-145) mmol/L Potassium 4.1 (3.5-5.1) mmol/L Chloride 94 L (98-107) mmol/L Carbon Dioxide 31.1 (21.0-32.0) mmol/L BUN 27 H (7.0-18.0) mg/dL Creatinine 1.3 H (0.6-1.0) mg/dL Est Cr Clr Drug Dosing 26.77 mL/min Estimated GFR (MDRD) 39.9 ml/min Glucose 142 H (74-106) mg/dL Calcium 9.5 (8.5-10.1) mg/dL Total Bilirubin 0.5 (0.2-1.0) mg/dL AST 39 H (15-37) IU/L ALT 31 (14-63) IU/L Alkaline Phosphatase 90 (46-116) U/L Troponin I < 0.050 (0.000-0.056) ng/mL Total Protein 8.0 (6.4-8.2) g/dL Albumin 3.5 (3.4-5.0) g/dL Globulin 4.5 H (2.6-4.0) g/dL Albumin/Globulin Ratio 0.8 L (0.9-1.6) Ethyl Alcohol <3 mg/dL Meds: Medications Generic Name Dose Route Start Last Admin Trade Name Freq PRN Reason Stop Dose Admin Sodium Chloride 10 ml 06/24/21 15:47 Sodium Chloride 0.9% 10 Ml Syringe FLUSH ASDIRECTED PRN Keep Vein Open Sodium Chloride 2.5 ml 06/24/21 15:47 Sodium Chloride 0.9% 2.5 Ml Syringe FLUSH ASDIRECTED PRN Keep Vein Open Discontinued Medications Generic Name Dose Route Start Last Admin Trade Name Freq PRN Reason Stop Dose Admin Sodium Chloride 1,000 mls @ 999 mls/hr 06/24/21 15:47 06/24/21 16:11 Normal Saline IV 06/24/21 16:47 999 mls/hr .Bolus ONE Administration Ondansetron HCl 4 mg 06/24/21 17:43 Ondansetron 4 Mg/2 Ml Sdv IVPUSH 06/24/21 17:44 ONETIME ONE Departure - Departure Time of Disposition: 17:48 Disposition: Refer to Observation Condition: Good Clinical Impression: Syncope - Discharge Information Referrals: Chalino Servin MD [Primary Care Provider] - Sepsis Event Note (ED) - Evaluation Sepsis Screening Result: No Definite Risk - Focused Exam Vital Signs: Vital Signs Temp Pulse Resp BP Pulse Ox 06/24/21 17:29 78 142/78 H 97 06/24/21 16:28 77 144/70 H 98 06/24/21 15:38 96.6 F L 72 16 121/64 97 - My Orders Last 24 Hours: My Active Orders 06/24/21 15:47 CORONAVIRUS COVID-19 SHIRLENE [MOLEC] Stat UA W/NENA RFLX IF INDICATED [URIN] Stat Sodium Chloride 0.9% [Saline Flush] 10 ml FLUSH ASDIRECTED PRN Sodium Chloride 0.9% [Saline Flush] 2.5 ml FLUSH ASDIRECTED PRN Saline Lock Insert [OM.PC] Stat 06/24/21 17:43 Patient Status [ADT] Routine - Assessment/Plan Last 24 Hours: My Active Orders 06/24/21 15:47 CORONAVIRUS COVID-19 SHIRLENE [MOLEC] Stat UA W/NENA RFLX IF INDICATED [URIN] Stat Sodium Chloride 0.9% [Saline Flush] 10 ml FLUSH ASDIRECTED PRN Sodium Chloride 0.9% [Saline Flush] 2.5 ml FLUSH ASDIRECTED PRN Saline Lock Insert [OM.PC] Stat 06/24/21 17:43 Patient Status [ADT] Routine
--- NOTE | 2021-06-24 19:50 | PCM.HP.2 ---
H&P History of Present Illness - General Date of Service: 06/24/21 Admit Problem/Dx: Admission Diagnosis/Problem Admission Diagnosis/Problem Syncope - History of Present Illness Initial Comments - Free Text/Narative: 75 yo female who presents to the ED after passing out at an apartment gathering. She was sitting down at the time and lost consciousness for a few seconds. For the past few days patient reports she has been lightheaded. This happened over a year ago and her doctors at the time thought she was dehydrated. She denies any chest pain, shortness of breath, or fevers. - Related Data Allergies/Adverse Reactions: Allergies Allergy/AdvReac Type Severity Reaction Status Date / Time adhesive tape Allergy Swelling Verified 06/24/21 20:00 Home Medications: Home Meds Thiamine HCl [Vitamin B-1] 100 mg PO DAILY 07/30/19 [History] Celecoxib 200 mg PO DAILY 06/25/21 [History] Mirtazapine [Remeron] 30 mg PO BEDTIME 06/25/21 [History] Past Medical History HEENT History: Reports: Impaired Vision Other HEENT History: dentures top and bottom Cardiovascular History: Reports: None Respiratory History: Reports: COPD Gastrointestinal History: Reports: Bowel Obstruction Other Gastrointestinal History: 2013: required 2 ex laps. Peritonitis. Sepsis sydrome with shock. Prolonged ICU stay. Dr. Jin was the surgeon. 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 Diff or MRSA - Past Surgical History HEENT Surgical History: Reports: Adenoidectomy, Oral Surgery, Tonsillectomy Respiratory Surgical History: Reports: Lung Biopsies, Lung Resection Other Respiratory Surgeries/Procedures: left lobectomy; mass removed from right; hx of lung CA GI Surgical History: Reports: Appendectomy, Cholecystectomy, Colonoscopy, Other (See Below) Other GI Surgeries/Procedures: bowl resection 2013 Female Surgical History: Reports: Hysterectomy Oncologic Surgical History: Reports: None Social & Family History - Family History Family Medical History: No Pertinent Family History HEENT: Reports: None Cardiac: Reports: None Respiratory: Reports: None Endocrine/Metabolic: Reports: Diabetes, type II Oncologic: Reports: Breast, Liver, Lung - Tobacco Use Tobacco Use Status *Q: Current Every Day Tobacco User Years of Tobacco use: 55 Packs/Tins Daily: 0.3 - Caffeine Use Caffeine Use: Reports: Soda - Recreational Drug Use Recreational Drug Use: No - Living Situation & Occupation Living situation: Reports: , Other (grand-daughter helps with cares.) Occupation: Retired H&P Review of Systems - Review of Systems: Review Of Systems: Comprehensive ROS is negative, except as noted in HPI. Exam - Exam Exam: See Below - Vital Signs Vital Signs: Last Vital Signs Temp 35.9 C L 06/24/21 15:38 Pulse 83 06/24/21 18:31 Resp 16 06/24/21 15:38 BP 150/76 H 06/24/21 18:31 Pulse Ox 83 L 06/24/21 18:31 Weight: 45.359 kg - Exam General: Alert, Oriented Lungs: Clear to Auscultation, Normal Respiratory Effort Cardiovascular: Regular Rate, Regular Rhythm GI/Abdominal Exam: Normal Bowel Sounds, Soft, Non-Tender Extremities: Non-Tender, No Pedal Edema Skin: Warm, Dry, Intact Neurological: No: Focal Deficit - Patient Data Lab Results Last 24 hrs: Laboratory Results - last 24 hr 06/24/21 06/24/21 06/24/21 Range/Units 15:57 15:57 17:40 WBC 11.11 H (4.0-11.0) K/uL RBC 4.77 (4.30-5.90) M/uL Hgb 14.6 (12.0-16.0) g/dL Hct 43.9 (36.0-46.0) % MCV 92.0 (80.0-98.0) fL MCH 30.6 (27.0-32.0) pg MCHC 33.3 (31.0-37.0) g/dL RDW Std Deviation 46.0 (28.0-62.0) fl RDW Coeff of Danisha 14 (11.0-15.0) % Plt Count 214 (150-400) K/uL MPV 11.80 (7.40-12.00) fL Neut % (Auto) 82.4 H (48.0-80.0) % Lymph % (Auto) 9.5 L (16.0-40.0) % Eaton % (Auto) 7.7 (0.0-15.0) % Eos % (Auto) 0.3 (0.0-7.0) % Baso % (Auto) 0.1 (0.0-1.5) % Neut # (Auto) 9.2 H (1.4-5.7) K/uL Lymph # (Auto) 1.1 (0.6-2.4) K/uL Eaton # (Auto) 0.9 H (0.0-0.8) K/uL Eos # (Auto) 0.0 (0.0-0.7) K/uL Baso # (Auto) 0.0 (0.0-0.1) K/uL Nucleated RBC % 0.0 /100WBC Nucleated RBCs # 0 K/uL Sodium 134 L (136-145) mmol/L Potassium 4.1 (3.5-5.1) mmol/L Chloride 94 L (98-107) mmol/L Carbon Dioxide 31.1 (21.0-32.0) mmol/L BUN 27 H (7.0-18.0) mg/dL Creatinine 1.3 H (0.6-1.0) mg/dL Est Cr Clr Drug Dosing 26.77 mL/min Estimated GFR (MDRD) 39.9 ml/min Glucose 142 H (74-106) mg/dL Calcium 9.5 (8.5-10.1) mg/dL Total Bilirubin 0.5 (0.2-1.0) mg/dL AST 39 H (15-37) IU/L ALT 31 (14-63) IU/L Alkaline Phosphatase 90 (46-116) U/L Troponin I < 0.050 (0.000-0.056) ng/mL Total Protein 8.0 (6.4-8.2) g/dL Albumin 3.5 (3.4-5.0) g/dL Globulin 4.5 H (2.6-4.0) g/dL Albumin/Globulin Ratio 0.8 L (0.9-1.6) Ethyl Alcohol <3 mg/dL SARS-CoV-2 RNA (SHIRLENE) NEGATIVE (NEGATIVE) Result Diagrams: 06/24/21 15:57 06/24/21 15:57 Sepsis Event Note - Evaluation Sepsis Screening Result: No Definite Risk - Focused Exam Vital Signs: Vital Signs Temp Pulse Resp BP Pulse Ox 06/24/21 18:31 83 150/76 H 83 L 06/24/21 17:29 78 142/78 H 97 06/24/21 16:28 77 144/70 H 98 06/24/21 15:38 35.9 C L 72 16 121/64 97 Problem List Initiated/Reviewed/Updated: Yes Orders Last 24hrs: Active Orders 24 hr Category Date Time Status Patient Status [ADT] Routine ADT 06/24/21 17:43 Active Antiembolic Devices [RC] PER UNIT ROUTINE Care 06/24/21 19:47 Ordered Cardiac Monitoring [RC] CONTINUOUS Care 06/24/21 19:47 Ordered Oxygen Therapy [RC] PRN Care 06/24/21 19:46 Ordered VTE/DVT Education [RC] PER UNIT ROUTINE Care 06/24/21 19:46 Ordered Vital Signs [RC] Q4H Care 06/24/21 19:46 Ordered UA W/NENA RFLX IF INDICATED [URIN] Stat Lab 06/24/21 15:47 Ordered Sodium Chloride 0.9% [Saline Flush] Med 06/24/21 15:47 Active 10 ml FLUSH ASDIRECTED PRN Sodium Chloride 0.9% [Saline Flush] Med 06/24/21 15:47 Active 2.5 ml FLUSH ASDIRECTED PRN Saline Lock Insert [OM.PC] Stat Oth 06/24/21 15:47 Ordered Sequential Compression Device [OM.PC] Per Unit Routine Oth 06/24/21 19:46 Ordered Resuscitation Status Routine Resus Stat 06/24/21 19:46 Ordered Medication Orders Sodium Chloride (Sodium Chloride 0.9% 10 Ml Syringe) 10 ml FLUSH ASDIRECTED PRN PRN Reason: Keep Vein Open Sodium Chloride (Sodium Chloride 0.9% 2.5 Ml Syringe) 2.5 ml FLUSH ASDIRECTED PRN PRN Reason: Keep Vein Open Assessment/Plan Comment:: 75 yo female admitted for syncope. We will monitor overnight on telemetry. Update: Patient monitored overnight without any events. Symptoms had resolved after fluid bolus given. I suspect patient's syncope likely related to dehydration. Patient is to be discharged to follow up with Dr. Servin.
[2021-06-25 13:07] VITALS: BP 140/65; PULSE 84
== END 2021-06-25 13:45 | disposition home or self-care (01) ==
LOC: MW.ED 15:29 → MW.MS 17:43
PROVIDERS: ADMIT Internal Medicine; ATTEND Internal Medicine
DX: R42 Dizziness and giddiness (principal); E86.0 Dehydration; J44.9 Chronic obstructive pulmonary disease, unspecified; F41.9 Anxiety disorder, unspecified; F32.A Depression, unspecified; F17.210 Nicotine dependence, cigarettes, uncomplicated; Z20.822 Contact with and (suspected) exposure to COVID-19; Z98.890 Other specified postprocedural states; Z90.49 Acquired absence of other specified parts of digestive tract; Z91.09 Other allergy status, other than to drugs and biological substances; Z79.899 Other long term (current) drug therapy
CPT/HCPCS: 36415; 71045; 80053; 80307; 84484; 85025; 93005; 96374; 99285; G0378; J2405; J7030; U0002

== ENCOUNTER 2021-11-12 10:12 | Inpatient (IN) | payer MEDICARE, OTHER ==
[2021-11-12] MEDS ORDERED: fentaNYL 50 MCG/ML SDV IVPUSH ONE ×2 (10:30→13:26)
[2021-11-12] MEDS ORDERED: Ondansetron 4 MG/2 ML SDV IVPUSH ONE (10:30)
[2021-11-12 11:15] LABS: BLOOD UREA NITROGEN,BUN 24 mg/dL (7.0-18.0); CARBON DIOXIDE,CO2 31.7 mmol/L (21.0-32.0); CHLORIDE,CL 96 mmol/L (98-107); GLUCOSE RANDOM 145 mg/dL (74-106); LIPASE 89 U/L (73-393); POTASSIUM,K 5.4 mmol/L (3.5-5.1); SODIUM,NA 134 mmol/L (136-145)
[2021-11-12 13:22] LABS: CORONAVIRUS COVID-19 NAA NEGATIVE (NEGATIVE); INFLUENZA A NAA NEGATIVE (NEGATIVE); INFLUENZA B NAA NEGATIVE (NEGATIVE)
[2021-11-12] MEDS ORDERED: Sodium Chloride 0.9% 1,000 ML IV ONE (13:27)
[2021-11-12] MEDS ORDERED: Albuterol/Ipratropium 3.0-0.5 MG/3 ML Neb Soln NEB PRN (13:45)
[2021-11-12] MEDS: Enoxaparin 40 MG/0.4 ML Syringe SUBCUT SCH (15:17)
[2021-11-12] MEDS: Pantoprazole 40 MG in Sodium Chloride 0.9% 10 ML IVPUSH SCH (15:18)
[2021-11-12] MEDS: Ondansetron 4 MG/2 ML SDV IVPUSH PRN (15:18)
[2021-11-12] MEDS: Lactated Ringers 1,000 ML IV SCH (17:52)
[2021-11-12] MEDS: Morphine 2 MG/ML SYRINGE IVPUSH PRN ×2 (17:52→22:04)
[2021-11-13] MEDS ORDERED: Labetalol 100 MG/20 ML MDV IVPUSH ONE (00:09)
[2021-11-13] MEDS: Ondansetron 4 MG/2 ML SDV IVPUSH PRN (00:53)
[2021-11-13] MEDS: Lactated Ringers 1,000 ML IV SCH ×2 (01:50→20:27)
[2021-11-13 06:54] LABS: BLOOD UREA NITROGEN,BUN 27 mg/dL (7.0-18.0); CHLORIDE,CL 99 mmol/L (98-107); GLUCOSE RANDOM 110 mg/dL (74-106); POTASSIUM,K 3.6 mmol/L (3.5-5.1); SODIUM,NA 137 mmol/L (136-145)
[2021-11-13] MEDS: Pantoprazole 40 MG in Sodium Chloride 0.9% 10 ML IVPUSH SCH (08:29)
[2021-11-13] MEDS: Enoxaparin 40 MG/0.4 ML Syringe SUBCUT SCH (12:56)
[2021-11-13] MEDS: Morphine 2 MG/ML SYRINGE IVPUSH PRN (15:14)
[2021-11-14] MEDS: Lactated Ringers 1,000 ML IV SCH ×2 (03:08→09:41)
[2021-11-14 07:24] LABS: BLOOD UREA NITROGEN,BUN 30 mg/dL (7.0-18.0); CARBON DIOXIDE,CO2 29.7 mmol/L (21.0-32.0); CHLORIDE,CL 100 mmol/L (98-107); GLUCOSE RANDOM 90 mg/dL (74-106); POTASSIUM,K 3.9 mmol/L (3.5-5.1); SODIUM,NA 137 mmol/L (136-145)
[2021-11-14] MEDS: Pantoprazole 40 MG in Sodium Chloride 0.9% 10 ML IVPUSH SCH (09:40)
[2021-11-14 16:39] VITALS: BP 116/55; PULSE 83
[2021-11-14] MEDS: Enoxaparin 40 MG/0.4 ML Syringe SUBCUT SCH (17:31)
== END 2021-11-14 17:10 | disposition home or self-care (01) | DRG 389 ==
LOC: MW.ED 10:12 → MW.MS 12:58
PROVIDERS: ADMIT Student in an Organized Health Care Education/Training Program; ATTEND Student in an Organized Health Care Education/Training Program
DX: K56.609 Unspecified intestinal obstruction, unspecified as to partial versus complete obstruction (principal); H54.7 Unspecified visual loss; Z68.1 Body mass index [BMI] 19.9 or less, adult; F32.A Depression, unspecified; E87.1 Hypo-osmolality and hyponatremia; M19.90 Unspecified osteoarthritis, unspecified site; Z91.048 Other nonmedicinal substance allergy status; Z79.899 Other long term (current) drug therapy; J44.9 Chronic obstructive pulmonary disease, unspecified; F17.210 Nicotine dependence, cigarettes, uncomplicated; F32.9 Major depressive disorder, single episode, unspecified; Z20.822 Contact with and (suspected) exposure to COVID-19; D64.9 Anemia, unspecified; R63.0 Anorexia; F41.9 Anxiety disorder, unspecified; Z98.890 Other specified postprocedural states; Z85.118 Personal history of other malignant neoplasm of bronchus and lung; Z87.81 Personal history of (healed) traumatic fracture; Z90.89 Acquired absence of other organs; Z90.2 Acquired absence of lung [part of]; Z90.49 Acquired absence of other specified parts of digestive tract; Z90.710 Acquired absence of both cervix and uterus
CPT/HCPCS: 0240U; 36415; 74019; 74176; 80053; 81001; 82150; 83690; 83735; 84100; 85025; 96374; 96375; 96376; 99285; C9113; J1650; J2270; J2405; J3010; J3490; J7030; J7120

== ENCOUNTER 2021-11-17 17:46 | Emergency (ER) | payer MEDICARE ==
[2021-11-18 04:16] VITALS: BP 121/70; PULSE 78
== END 2021-11-17 19:57 | disposition home or self-care (01) ==
LOC: MW.ED 17:46
DX: K62.3 Rectal prolapse (principal); J44.9 Chronic obstructive pulmonary disease, unspecified
CPT/HCPCS: 99282; 99283

== ENCOUNTER 2021-12-11 16:23 | Emergency (ER) | payer MEDICARE ==
[2021-12-11] MEDS ORDERED: Sodium Chloride 0.9% 1,000 ML IV ONE (16:36)
[2021-12-11 17:19] LABS: POTASSIUM,K 2.9 mmol/L (3.5-5.1)
[2021-12-11] MEDS ORDERED: Potassium Chloride 20 MEQ Tab.ER PO ONE (17:37)
[2021-12-11] MEDS ORDERED: Iopamidol 755 MG/ML 500 ML Multipack Bottle IVPUSH STA (18:20)
[2021-12-11 21:50] VITALS: BP 148/65; PULSE 87
== END 2021-12-11 19:46 | disposition home or self-care (01) ==
LOC: MW.ED 16:23
DX: R55 Syncope and collapse (principal); E87.6 Hypokalemia; J44.9 Chronic obstructive pulmonary disease, unspecified; Z90.49 Acquired absence of other specified parts of digestive tract; Z90.710 Acquired absence of both cervix and uterus; Z79.899 Other long term (current) drug therapy; Z91.048 Other nonmedicinal substance allergy status
CPT/HCPCS: 36415; 70450; 71045; 71275; 80053; 82947; 83735; 84484; 85025; 85379; 96360; 96361; 99284; A9270; J7030; Q9967

== ENCOUNTER 2022-06-06 15:05 | Inpatient (IN) | payer MEDICARE, OTHER ==
[2022-06-06] MEDS ORDERED: Acetaminophen 325 MG Tab PO ONE (15:35)
[2022-06-06] MEDS ORDERED: Morphine 2 MG/ML SYRINGE IVPUSH ONE (15:35)
[2022-06-06] MEDS ORDERED: Sodium Chloride 0.9% 500 ML IV ONE (18:37)
[2022-06-06 19:04] LABS: CARBON DIOXIDE,CO2 32.8 mmol/L (21.0-32.0); POTASSIUM,K 3.5 mmol/L (3.5-5.1)
[2022-06-06] MEDS ORDERED: Morphine 2 MG/ML SYRINGE IVPUSH PRN (21:11)
[2022-06-06] MEDS ORDERED: Albuterol/Ipratropium 3.0-0.5 MG/3 ML Neb Soln NEB PRN (21:11)
[2022-06-06] MEDS ORDERED: Ondansetron 4 MG/2 ML SDV IVPUSH PRN (21:11)
[2022-06-06] MEDS: Lactated Ringers 1,000 ML IV SCH (22:11)
[2022-06-06] MEDS: Pantoprazole 40 MG in Sodium Chloride 0.9% 10 ML IVPUSH SCH (22:11)
[2022-06-06] MEDS: Heparin Sodium 5,000 Units/ML Vial SUBCUT SCH (22:12)
[2022-06-07] MEDS: Heparin Sodium 5,000 Units/ML Vial SUBCUT SCH ×3 (05:12→20:48)
[2022-06-07] MEDS: Lactated Ringers 1,000 ML IV SCH ×2 (06:25→16:44)
[2022-06-07 07:47] LABS: CARBON DIOXIDE,CO2 30.4 mmol/L (21.0-32.0); POTASSIUM,K 3.5 mmol/L (3.5-5.1)
[2022-06-07] MEDS ORDERED: Phosphorus #1 250 MG Tab PO ONE (09:00)
[2022-06-07] MEDS ORDERED: Magnesium Sulfate/Water 2 GM in Premix Bag 1 BAG IV ONE (09:00)
[2022-06-07] MEDS: Nicotine 7 MG/24 Hr Patch TRDERM SCH (13:00)
[2022-06-07] MEDS: Pantoprazole 40 MG in Sodium Chloride 0.9% 10 ML IVPUSH SCH (20:48)
[2022-06-08] MEDS: Heparin Sodium 5,000 Units/ML Vial SUBCUT SCH ×3 (04:25→20:27)
[2022-06-08 07:23] LABS: CARBON DIOXIDE,CO2 31.8 mmol/L (21.0-32.0); POTASSIUM,K 2.9 mmol/L (3.5-5.1)
[2022-06-08] MEDS ORDERED: Sodium Chloride 0.9% 500 ML IV ONE (08:30)
[2022-06-08] MEDS: Potassium Chloride 100 ML IV SCH ×2 (09:20→11:40)
[2022-06-08] MEDS: Magnesium Oxide 400 MG Tab PO SCH ×2 (09:20→20:27)
[2022-06-08] MEDS: Acetaminophen 325 MG Tab PO PRN (09:42)
[2022-06-08] MEDS: Potassium Chloride 20 MEQ Tab.ER PO SCH ×2 (10:15→14:14)
[2022-06-08] MEDS: Acetaminophen/oxyCODONE 325-5 MG Tab PO PRN (14:51)
[2022-06-08] MEDS: Morphine 2 MG/ML SYRINGE IVPUSH PRN ×2 (15:48→20:22)
[2022-06-08] MEDS: Nicotine 7 MG/24 Hr Patch TRDERM SCH (17:54)
[2022-06-08] MEDS: Pantoprazole 40 MG in Sodium Chloride 0.9% 10 ML IVPUSH SCH (20:26)
[2022-06-08] MEDS ORDERED: Diltiazem 25 MG/5 ML SDV IVPUSH ONE (23:20)
[2022-06-08] MEDS ORDERED: Lactated Ringers 500 ML IV ONE (23:21)
[2022-06-09] MEDS: Diltiazem 120 MG Cap.CD PO SCH (00:34)
[2022-06-09] MEDS: Heparin Sodium 5,000 Units/ML Vial SUBCUT SCH ×3 (04:43→20:32)
[2022-06-09 06:59] LABS: CARBON DIOXIDE,CO2 27.8 mmol/L (21.0-32.0); POTASSIUM,K 4.6 mmol/L (3.5-5.1)
[2022-06-09] MEDS: Magnesium Oxide 400 MG Tab PO SCH ×2 (09:05→20:33)
[2022-06-09] MEDS: Morphine 2 MG/ML SYRINGE IVPUSH PRN (09:19)
[2022-06-09] MEDS: Nicotine 7 MG/24 Hr Patch TRDERM SCH (09:46)
[2022-06-09] MEDS: Acetaminophen/oxyCODONE 325-5 MG Tab PO PRN ×2 (10:25→23:30)
[2022-06-09] MEDS: Piperacillin/Tazobactam 3.375 GM in Sodium Chloride 0.9% 50 ML IV SCH ×2 (18:47→23:30)
[2022-06-09] MEDS: Pantoprazole 40 MG in Sodium Chloride 0.9% 10 ML IVPUSH SCH (20:32)
[2022-06-09] MEDS: Acetaminophen 325 MG Tab PO PRN (22:17)
[2022-06-10] MEDS: Morphine 2 MG/ML SYRINGE IVPUSH PRN ×3 (03:22→20:31)
[2022-06-10] MEDS: Piperacillin/Tazobactam 3.375 GM in Sodium Chloride 0.9% 50 ML IV SCH ×3 (05:35→17:08)
[2022-06-10] MEDS: Heparin Sodium 5,000 Units/ML Vial SUBCUT SCH (05:35)
[2022-06-10] MEDS: Acetaminophen 325 MG Tab PO PRN (06:01)
[2022-06-10 07:04] LABS: POTASSIUM,K 4.7 mmol/L (3.5-5.1)
[2022-06-10] MEDS: Acetaminophen/oxyCODONE 325-5 MG Tab PO PRN (08:37)
[2022-06-10] MEDS: Nicotine 7 MG/24 Hr Patch TRDERM SCH (08:38)
[2022-06-10] MEDS: Magnesium Oxide 400 MG Tab PO SCH ×2 (08:38→20:25)
[2022-06-10] MEDS: Diltiazem 120 MG Cap.CD PO SCH (08:38)
[2022-06-10] MEDS: Enoxaparin 40 MG/0.4 ML Syringe SUBCUT SCH (12:30)
[2022-06-10] MEDS: Pantoprazole 40 MG in Sodium Chloride 0.9% 10 ML IVPUSH SCH (20:25)
[2022-06-11] MEDS: Piperacillin/Tazobactam 3.375 GM in Sodium Chloride 0.9% 50 ML IV SCH ×5 (00:05→23:27)
[2022-06-11] MEDS: Acetaminophen/oxyCODONE 325-5 MG Tab PO PRN ×3 (03:05→23:25)
[2022-06-11 07:10] LABS: CARBON DIOXIDE,CO2 27.8 mmol/L (21.0-32.0); POTASSIUM,K 4.1 mmol/L (3.5-5.1)
[2022-06-11] MEDS: Diltiazem 120 MG Cap.CD PO SCH (10:47)
[2022-06-11] MEDS: Magnesium Oxide 400 MG Tab PO SCH ×2 (10:48→20:20)
[2022-06-11] MEDS: Nicotine 7 MG/24 Hr Patch TRDERM SCH (10:48)
[2022-06-11] MEDS: Enoxaparin 40 MG/0.4 ML Syringe SUBCUT SCH (10:48)
[2022-06-11] MEDS ORDERED: Bisacodyl 10 MG Supp RECTAL PRN (11:18)
[2022-06-11] MEDS: Docusate Sodium 100 MG Cap PO SCH (11:43)
[2022-06-11] MEDS: Polyethylene Glycol 3350 Powder 17 GM Packet PO SCH (11:43)
[2022-06-11] MEDS: Pantoprazole 40 MG in Sodium Chloride 0.9% 10 ML IVPUSH SCH (20:20)
[2022-06-11] MEDS: Morphine 2 MG/ML SYRINGE IVPUSH PRN (20:30)
[2022-06-12] MEDS: Morphine 2 MG/ML SYRINGE IVPUSH PRN ×4 (00:33→18:32)
[2022-06-12] MEDS: Piperacillin/Tazobactam 3.375 GM in Sodium Chloride 0.9% 50 ML IV SCH (06:18)
[2022-06-12 07:01] LABS: CARBON DIOXIDE,CO2 27.8 mmol/L (21.0-32.0); POTASSIUM,K 3.8 mmol/L (3.5-5.1)
[2022-06-12] MEDS: Acetaminophen/oxyCODONE 325-5 MG Tab PO PRN (07:34)
[2022-06-12] MEDS: Lactated Ringers 1,000 ML IV SCH ×2 (08:28→19:28)
[2022-06-12] MEDS: Magnesium Oxide 400 MG Tab PO SCH ×2 (08:52→21:17)
[2022-06-12] MEDS: Polyethylene Glycol 3350 Powder 17 GM Packet PO SCH (08:52)
[2022-06-12] MEDS: Diltiazem 120 MG Cap.CD PO SCH (08:52)
[2022-06-12] MEDS: Docusate Sodium 100 MG Cap PO SCH (08:52)
[2022-06-12] MEDS: Nicotine 7 MG/24 Hr Patch TRDERM SCH (09:13)
[2022-06-12] MEDS ORDERED: Acetaminophen 650 MG in Premix Bag 1 BAG IV PRN (09:20)
[2022-06-12] MEDS: Enoxaparin 40 MG/0.4 ML Syringe SUBCUT SCH (11:50)
[2022-06-12] MEDS ORDERED: Levofloxacin/Dextrose 5%-Water 750 MG in Premix Bag 1 BAG IV SCH (12:00)
[2022-06-12] MEDS: Pantoprazole 40 MG in Sodium Chloride 0.9% 10 ML IVPUSH SCH (21:13)
[2022-06-13] MEDS: Morphine 2 MG/ML SYRINGE IVPUSH PRN (00:47)
[2022-06-13] MEDS: Lactated Ringers 1,000 ML IV SCH (04:23)
[2022-06-13 04:25] VITALS: BP 151/85; PULSE 94
== END 2022-06-13 05:30 | DRG 535 ==
LOC: MW.ED 15:05 → MW.MS 20:31
PROVIDERS: ADMIT Student in an Organized Health Care Education/Training Program; ATTEND Student in an Organized Health Care Education/Training Program
DX: S32.591A Other specified fracture of right pubis, initial encounter for closed fracture (principal); J18.9 Pneumonia, unspecified organism; S32.19XA Other fracture of sacrum, initial encounter for closed fracture; J44.9 Chronic obstructive pulmonary disease, unspecified; K56.609 Unspecified intestinal obstruction, unspecified as to partial versus complete obstruction; N39.0 Urinary tract infection, site not specified; J44.0 Chronic obstructive pulmonary disease with (acute) lower respiratory infection; F32.A Depression, unspecified; H54.7 Unspecified visual loss; Z20.822 Contact with and (suspected) exposure to COVID-19; D64.9 Anemia, unspecified; F17.210 Nicotine dependence, cigarettes, uncomplicated; F41.9 Anxiety disorder, unspecified; Z90.2 Acquired absence of lung [part of]; Z85.118 Personal history of other malignant neoplasm of bronchus and lung; Z91.09 Other allergy status, other than to drugs and biological substances; Z79.899 Other long term (current) drug therapy; Z90.49 Acquired absence of other specified parts of digestive tract; Z90.710 Acquired absence of both cervix and uterus; W19.XXXA Unspecified fall, initial encounter
CPT/HCPCS: 36415; 51702; 73502; 73552; 73700; 80053; 82947; 83735; 85025; 93005; 96374; 99285; A9270; J2270; J7040; U0002; 43752; 71045; 71045-26; 73070-26-LT; 73070-LT; 74176; 74176-26; 80048; 81001; 84100; 84484; 87086; 87088; 87186; 97110-GP; 97162-GP; 97530-GP; C9113; J1644; J1650; J1956; J2543; J3475; J3480; J3490; J7120

== ENCOUNTER 2022-07-12 10:44 | Emergency (ER) | payer MEDICARE, OTHER ==
[2022-07-12] MEDS ORDERED: Morphine 4 MG/ML Syringe IM ONE (10:59)
[2022-07-12 12:05] LABS: CARBON DIOXIDE,CO2 30.9 mmol/L (21.0-32.0)
[2022-07-12] MEDS ORDERED: Potassium Chloride 20 MEQ Tab.ER PO ONE (12:30)
[2022-07-12 12:35] LABS: CORONAVIRUS COVID-19 NAA NEGATIVE (NEGATIVE); INFLUENZA A NAA NEGATIVE (NEGATIVE); INFLUENZA B NAA NEGATIVE (NEGATIVE)
[2022-07-12] MEDS ORDERED: Acetaminophen/HYDROcodone 325-5 MG Tab PO ONE (13:50)
[2022-07-12 14:27] VITALS: BP 152/102; PULSE 95
== END 2022-07-12 14:20 | disposition home or self-care (01) ==
LOC: MW.ED 10:44
DX: E87.6 Hypokalemia (principal); J44.9 Chronic obstructive pulmonary disease, unspecified; Z91.048 Other nonmedicinal substance allergy status; Z20.822 Contact with and (suspected) exposure to COVID-19
CPT/HCPCS: 0240U; 36415; 71045; 73522; 80053; 85025; 96372; 99283; A9270; J2270